=== PATIENT | female | born 1980 | race Caucasian/White ===

== ENCOUNTER 2020-08-13 07:38 | Outpatient (REF) | payer OTHER, SELFPAY | END 2020-08-13 07:39 | disposition home or self-care (01) | LOC: HO.LAB 07:38 | PROVIDERS: Visit Provider Internal Medicine | DX: Z20.828 Contact with and (suspected) exposure to other viral communicable diseases (principal) | CPT/HCPCS: C9803; U0003 ==

== ENCOUNTER 2020-12-25 09:10 | Outpatient (REF) | payer OTHER, SELFPAY ==
[2020-12-25 11:53] LABS: TSH reflex Free T4 1.21 uIU/mL (0.32-4.0); Vitamin D 25-OH Total 46.5 ng/mL (>30)
== END 2020-12-25 09:11 | disposition home or self-care (01) ==
LOC: HO.HMGCLDS 09:10
PROVIDERS: PCP Internal Medicine; Visit Provider Internal Medicine
DX: M85.80 Other specified disorders of bone density and structure, unspecified site (principal)
CPT/HCPCS: 36415; 82306; 84443

== ENCOUNTER → 2021-01-08 10:09 | Outpatient (BNVA) | payer OTHER, SELFPAY | PROVIDERS: PCP Internal Medicine; Visit Provider Internal Medicine Gastroenterology ==

== ENCOUNTER 2021-06-14 10:43 | Outpatient (REF) | payer OTHER, SELFPAY ==
[2021-06-14 14:36] LABS: Monotest Negative (Negative)
[2021-06-14 15:01] LABS: Folate 17.9 ng/mL (> or = 4.0); Vitamin B12 664 pg/mL (200-900)
[2021-06-20 12:31] LABS: Vitamin D 25-OH, D2 5 ng/mL; Vitamin D 25-OH, D3 34 ng/mL; Vitamin D 25-OH, Total 39 ng/mL (30-100)
== END 2021-06-14 10:44 | disposition home or self-care (01) ==
LOC: HO.HMGCLDS 10:43
PROVIDERS: PCP Internal Medicine; Visit Provider Physician Assistant
DX: J02.9 Acute pharyngitis, unspecified (principal); K90.0 Celiac disease
CPT/HCPCS: 36415; 82306; 82607; 82746; 86308

== ENCOUNTER 2021-08-30 | Outpatient (REF) | payer OTHER, SELFPAY | END 2021-08-30 00:01 | disposition home or self-care (01) | LOC: HO.LNP | PROVIDERS: Visit Provider Physician Assistant Medical | DX: Z20.822 Contact with and (suspected) exposure to COVID-19 (principal); J02.9 Acute pharyngitis, unspecified | CPT/HCPCS: 87071; U0003; U0005 ==

== ENCOUNTER 2021-09-04 15:30 | Outpatient (REF) | payer OTHER, SELFPAY | END 2021-09-04 15:31 | disposition home or self-care (01) | LOC: HO.LNP 15:30 | PROVIDERS: Visit Provider Physician Assistant Medical | DX: Z20.822 Contact with and (suspected) exposure to COVID-19 (principal) | CPT/HCPCS: U0003; U0005 ==

== ENCOUNTER 2021-09-06 11:27 | Outpatient (REF) | payer OTHER, SELFPAY ==
--- NOTE | ~2021-09-06 | MM_ITS ---
EXAMINATION: MM SCREENING DIGITAL BREAST TOMOSYNTHESIS, BILATERAL CLINICAL INFORMATION: Screening. Asymptomatic. No prior breast imaging. Age 41. No known family history breast cancer. The lifetime risk of breast cancer based on the Tyrer-Cuzick Model is 14%. COMPARISON: None (current study represents initial baseline exam). TECHNIQUE: Digital breast tomosynthesis is performed in both the craniocaudal and mediolateral oblique views along with computer-aided detection (CAD). Synthesized 2D images are generated from the tomosynthesis. FINDINGS: There are scattered areas of fibroglandular density (ACR BI-RADS breast composition Category b). There are no significant masses, abnormal calcifications, or other abnormalities. The axilla and skin contours are unremarkable. MM/MM tomosynthesis screening BI IMPRESSION: No mammographic evidence of malignancy. ASSESSMENT: BI-RADS 1: Negative RECOMMENDATION: Routine annual mammography screening. This patient's information was entered into a reminder system with a target due date for their next mammogram.
== END 2021-09-06 11:28 | disposition home or self-care (01) ==
LOC: HO.MAMMO 11:27
PROVIDERS: Visit Provider Internal Medicine
DX: Z12.31 Encounter for screening mammogram for malignant neoplasm of breast (principal)
CPT/HCPCS: 77063; 77067

== ENCOUNTER 2021-10-19 09:41 | Outpatient (REF) | payer OTHER, SELFPAY ==
--- NOTE | ~2021-10-19 | MM_ITS ---
EXAMINATION: BONE DENSITOMETRY CLINICAL INDICATION: Other specified disorders of bone density and structure. Age 41. COMPARISON: Previous BD dated 11/01/2019 and baseline BD dated 02/04/2014. TECHNIQUE: Using a [employer] DXA System (software version: 13.1) manufactured by [employer], dual-energy x-ray absorptiometry was performed of the lumbar spine and left hip. The images are of good technical quality. Based on ISCD (International Society for Clinical Densitometry) standards of reporting, Z-scores instead of T-scores are reported in this premenopausal woman. Summary results are attached. FINDINGS: AP SPINE L1-L4: Current: BMD 1.053 g/cm2, T-score -1.1, Z-score -1.7, Z-score within expected range for age, 4.7% increase from previous, 2.0% decrease from baseline (<5% change is not significant). Prior: BMD 1.006 g/cm2. Baseline: BMD 1.074 g/cm2. LEFT FEMUR, NECK: Current: BMD 0.872 g/cm2, T-score -1.2, Z-score -1.2, Z-score within expected range for age. Prior: BMD 0.892 g/cm2. Baseline: BMD 0.839 g/cm2. LEFT FEMUR, TOTAL: Current: BMD 0.936 g/cm2, T-score -0.6, Z-score -0.8, Z-score within expected range for age, 1.3% decrease from previous, 4.9% increase from baseline (<5% change is not significant). Prior: BMD 0.948 g/cm2. Baseline: BMD 0.892 g/cm2. IDENTIFIED RISK FACTORS: Secondary osteoporosis. HISTORY OF FRACTURE: None listed. MEDICATIONS: Calcium supplements or multivitamin, vitamin D. MM/XR DEXA axial skeleton IMPRESSION: 1. DIAGNOSIS: Based on the lowest Z-score value of -1.7 in the lumbar spine, the patient's bone density is within the expected range for age. 2. 10-YEAR FRACTURE RISK PREDICTION, FRAX: Major osteoporotic fracture (clinical spine, forearm, hip or shoulder) 2.1%. Hip fracture 0.1%. 3. Treatment Recommendations: NOF guidelines recommend consideration for treatment in postmenopausal women and men age 50 and older presenting with the following: -A hip or vertebral (clinical or morphometric) fracture. -T-score less than or equal to -2.5 at the femoral neck or spine after appropriate evaluation to exclude secondary causes. -Low bone mass at the hip or spine and a 10-year fracture probability by FRAX of greater than or equal to 3% for hip fracture or greater than or equal to 20% for major osteoporotic fracture based on the [place] adapted WHO algorithm. 4. Other Recommendations: All treatment decisions require clinical judgment and consideration of individual patient factors, including patient preferences, comorbidities, previous drug use, risk factors not captured in the FRAX model (e.g. frailty, falls, vitamin D deficiency, increased bone turnover, interval significant decline in bone density) and possible under or overestimation of fracture risk by FRAX. FUTURE SCAN RECOMMENDATION: People with diagnosed cases of osteoporosis or at high risk for fracture should have regular bone mineral density tests. For patients eligible for Medicare, routine testing is allowed once every 2 years. The testing frequency can be increased to one year for patients who have rapidly progressing disease, those who are receiving or discontinuing medical therapy to restore bone mass, or have additional risk factors.
== END 2021-10-19 09:42 | disposition home or self-care (01) ==
LOC: HO.MAMMO 09:41
PROVIDERS: PCP Internal Medicine; Visit Provider Internal Medicine
DX: Z13.820 Encounter for screening for osteoporosis (principal); M85.80 Other specified disorders of bone density and structure, unspecified site
CPT/HCPCS: 77080

== ENCOUNTER → 2021-11-08 09:26 | Outpatient (BNVA) | payer OTHER, SELFPAY | PROVIDERS: PCP Internal Medicine; Referring Provider Internal Medicine; Visit Provider Internal Medicine Gastroenterology ==

== ENCOUNTER 2021-12-17 10:32 | Outpatient (REF) | payer OTHER, SELFPAY ==
[2021-12-17 10:45] LABS: MANUAL DIFF FLAG NO
[2021-12-17 10:58] LABS: Basophils Percent Auto 0.4 % (0-2); Eosinophils Absolute Auto 0.1 X10*3/uL (0.0-0.4); Eosinophils Percent Auto 0.9 % (0-4); Hemoglobin 13.3 g/dl (12.0-16.0); Imm Gran Abs Auto 0.04 X10*3/uL (0.00-0.03); Imm Gran Pct Auto 0.5 % (0.0-0.4); Lymphocytes Absolute Auto 1.5 X10*3/uL (1.2-4.9); Lymphocytes Percent Auto 18.9 % (20-40); Mean Corpuscular HGB Conc 33.3 g/dl (31.0-35.0); Mean Corpuscular Hemoglobin 31.4 pg (27.0-33.0); Mean Corpuscular Volume 94.6 fL (80.0-98.0); Mean Platelet Volume 9.6 fL (9.4-12.3); Monocytes Absolute Auto 0.6 X10*3/uL (0.1-1.2); Monocytes Percent Auto 7.5 % (2-11); Neutrophils Absolute Auto 5.7 x10*3/uL (2.0-8.3); Neutrophils Percent Auto 71.8 % (45-73); Platelet Count 337 X10*3/uL (160-400); Red Blood Count 4.23 X10*6/uL (4.20-5.50); Red Cell Distribution Width 11.5 % (11.0-16.0)
[2021-12-17 11:16] LABS: INTERNATIONAL NORM RATIO 1.1 (0.9-1.1); Prothrombin Time 12.3 SEC (9.9-13.0)
[2021-12-17 11:45] LABS: Vitamin D 25-OH Total 47.4 ng/mL (>30)
[2021-12-17 12:04] LABS: Folate > 20.0 ng/mL (> or = 4.0); Vitamin B12 741 pg/mL (200-900)
[2021-12-17 12:33] LABS: Ferritin 18 ng/mL (10-250)
[2021-12-20 18:07] LABS: Immunoglobulin A 389 mg/dL (47-310)
[2021-12-22 04:36] LABS: Zinc 76 mcg/dL (60-130)
[2021-12-22 08:42] LABS: Transglutaminase IgA 1.3 U/mL
== END 2021-12-17 10:33 | disposition home or self-care (01) ==
LOC: HO.LAB 10:32
PROVIDERS: PCP Internal Medicine; Visit Provider Internal Medicine Gastroenterology
DX: K90.0 Celiac disease (principal)
CPT/HCPCS: 36415; 82306; 82607; 82728; 82746; 82784; 84630; 85025; 85610; 86364

== ENCOUNTER 2022-04-25 12:30 | Day surgery (SDC) | payer OTHER, SELFPAY ==
[2022-04-19 12:09] VITALS: BMI 28.3
--- NOTE | 2022-04-22 10:38 | HO.ANESPROP2 ---
Documented by User: Karoline Conroy NP 04/22/22 10:38 HPI - Anesthesia Eval Consult details Narrative: 41yo F for Colonoscopy PMFSH Active Problems Active Problems: All Active Problems (Updated 11/08/21 @ 18:12 by Gregoria Salazar MD) Family history of colonic polyps (Acute) Tonsillith (Acute) Acute pharyngitis (Acute) Osteopenia (Acute) Annual physical exam (Acute) Bladder prolapse, female, acquired (Acute) Upper respiratory tract infection (Acute) Celiac disease (Acute) Gas bloat syndrome (Acute) Past Medical History Medical History (Updated 11/08/21 @ 18:12 by Gregoria Salazar MD) Annual physical exam Anxiety and depression Bladder prolapse, female, acquired Celiac disease Eczema Osteopenia Psoriasis Tonsillith Family History Family History Father Family history of prostate problems HTN (hypertension) Mother HTN (hypertension) Maternal Grandmother Parkinsons CVD (cardiovascular disease) Maternal Uncle Colon cancer Other Mental health disorder Substance use disorder Surgical History Surgical History H/O colonoscopy History of esophagogastroduodenoscopy (EGD) Social History Social History Household Members: Spouse and Children Housing: House Alcohol intake: current Alcohol intake frequency: holidays/special occasions only Patient Tobacco Use Status: Never used Tobacco Second Hand Smoke Exposure: No Are you DNR?: No Advance Directives: No Advance Directives Information Provided: Yes Nutrition Risks: No Nutritional Risk Patient : No FDLMP: Current occupational status: employed 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 Meds Allergies Allergy/AdvReac Type Severity Reaction Status Date / Time Gluten Allergy Severe Abdominal Uncoded 09/08/21 11:35 pain, bloating Dust and Mold Allergy Mild Congestion, Uncoded 09/08/21 11:35 sore ears Home Medications Medication Instructions Recorded Confirmed Last Taken Type clobetasol 0.05 % scalp solution ml topical 09/08/21 11/08/21 Unknown History Exam Exam Date and Time: April 22, 2022 1038 Height,Weight and Vital Signs: Height 5 ft 8 in Weight 84.368 kg Assessment and Plan Assessment Anesthesia Assessment: Chart Reviewed Documented by User: Bonita Montes MD 04/25/22 13:17 [facility] Past Medical History Medical History (Updated 11/08/21 @ 18:12 by Gregoria Salazar MD) Annual physical exam Anxiety and depression Bladder prolapse, female, acquired Celiac disease Eczema Osteopenia Psoriasis Tonsillith Family History Family History Father Family history of prostate problems HTN (hypertension) Mother HTN (hypertension) Maternal Grandmother Parkinsons CVD (cardiovascular disease) Maternal Uncle Colon cancer Other Mental health disorder Substance use disorder Family history of problems with anesthesia: No Surgical History Surgical History H/O colonoscopy History of esophagogastroduodenoscopy (EGD) History of Problems with Anesthesia: No Social History Social History Household Members: Spouse and Children Housing: House Alcohol intake: current Alcohol intake frequency: holidays/special occasions only Patient Tobacco Use Status: Never used Tobacco Second Hand Smoke Exposure: No Are you DNR?: No Advance Directives: No Advance Directives Information Provided: Yes Nutrition Risks: No Nutritional Risk Patient : No FDLMP: Current occupational status: employed 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 Meds Allergies Allergy/AdvReac Type Severity Reaction Status Date / Time Gluten Allergy Severe Abdominal Uncoded 09/08/21 11:35 pain, bloating Dust and Mold Allergy Mild Congestion, Uncoded 09/08/21 11:35 sore ears Home Medications Medication Instructions Recorded Confirmed Last Taken Type clobetasol 0.05 % scalp solution ml topical 09/08/21 11/08/21 Unknown History Exam Airway Mallampati Class: II TM Dist: >3cm Neck ROM: Full Heart: rrr Lungs: cta Assessment and Plan Assessment Anesthesia Assessment: Anesthesia Plan Discussed and Chart Reviewed Final Anesthetic Review Family History of Problems with Anesthesia: No History of Problems with Anesthesia: No NPO: Yes ASA Class: II Final Preanesthetic Review: No Changes in Pt Med Stat, Meds/Allgs Chart Reviewed and Consent Obtained/Reviewed Patient Risk: Intermediate Procedure Risk: Intermediate Anesthetic Plan Anesthetic Plan: MAC: Disposition: Standard PACU
[2022-04-25 13:03] VITALS: BP 138/102; PULSE 102; RESP 18; TEMP 36.1; O2SAT 100
[2022-04-25] MEDS: Lactated Ringers 1,000 ML 100 ML IVCONT (13:13)
[2022-04-25 13:14] LABS: UPreg QC Valid YES; Urine Pregnancy NEGATIVE (NEGATIVE)
--- NOTE | 2022-04-25 13:20 | MHC.SHP ---
Pre-Procedural Eval Section A Date of Service: 04/25/22 Section B Chief Complaint: celiac disease,hx of colonic polyps Relevant Family History (Specify if Yes): No Relevant Social History: None Present Medications: see Short Stay Collaborative assessment Medical History: Significant History (Anxiety and depression Bladder prolapse, female, acquired Celiac disease Eczema Osteopenia Psoriasis Tonsillith) History of Previous Operations: Relevant previous surgery/procedure and date(s) (H/O colonoscopy History of esophagogastroduodenoscopy (EGD)) Allergies: Allergies Allergy/AdvReac Type Severity Reaction Status Date / Time Gluten Allergy Severe Abdominal Uncoded 09/08/21 11:35 pain, bloating Dust and Mold Allergy Mild Congestion, Uncoded 09/08/21 11:35 sore ears Review of Systems Sugical H&P ROS: Negative: Constitution, Cardiovascular, Respiratory and Gastrointestinal Exam Surgical H&P Exam: Normal: Heart, Normal: Lungs, Normal: Extremities and Normal: Abdomen Plan Diagnosis/Plan: Unchanged I have reviewed the history and physical and performed a pertinent physical examination on my patient. No changes have occurred unless specified.
--- NOTE | 2022-04-25 13:26 | PM.OP ---
Brief Operative Note Date of Service: 04/25/22 Pre-op diagnosis: Colon cancer screen, family history of colon polyps (Dad in his 40's), follow-up of celiac disease Post-op diagnosis: other (Gastritis, celiac disease, diverticulosis, hemorrhoids) Procedure: FLEXIBLE TRANSORAL UPPER GASTROINTESTINAL ENDOSCOPY WITH BIOPSIES AND COLONOSCOPY TILL CECUM WITH BIOPSIES UPPER ENDOSCOPY Consent: Indications for the procedure and potential complications of bleeding, perforation, reaction to medications and missed diagnosis were discussed with the patient and informed consent was obtained. Instrument: Olympus GIF H 190 mid size upper endoscope Monitoring: Vital signs and clinical assessment, continuous EKG monitoring, Pulse oximetry, Carbon Dioxide monitoring and blood pressure monitoring were done throughout the procedure. Procedure: The patient was placed in the left lateral decubitis position and pre-procedure medications were administered and a bite block was placed. The endoscope was inserted into the mouth and advanced under direct vision to the third part of duodenum. A careful inspection was made as the upper endoscope was withdrawn including a retroflexed examination of the proximal stomach; Findings and interventions are described below. Findings: Larynx: Normal Esophagus: GE junction at 36 cms. No esophagitis or Castro's. Stomach: Mild gastric erythema with a few 1 cms chronic appearing antral erosions. Biopsies were obtained. Grade 2 flap valve on retroflexed examination of the cardia. Duodenum: Normal bulb and descending duodenum. Biopsies were obtained from 3rd part of duodenum to FU on celiac disease Intervention: Biopsies as noted above COLONOSCOPY PROCEDURE NOTE Consent: Indications for the procedure and potential complications of bleeding, perforation, reaction to medications and missed diagnosis were discussed with the patient and informed consent was obtained. Instrument: Olympus PCF H 190 L variable stiffness pediatric colonoscope Monitoring: Vital signs and clinical assessment, intermittent blood pressure monitoring, continuous EKG monitoring, Pulse oximetry and Carbon Dioxide monitoring were done throughout the procedure. Colon withdrawl time was 16 minutes. Procedure: The patient was placed in the left lateral decubitis position and pre-procedure medications were administered. After a digital rectal examination of the ano-rectum, the video colonoscope was inserted into the rectum and advanced through the colon to the cecum. The colonoscope was slowly withdrawn in a retrograde panoramic fashion and the colon mucosa was carefully examined including a retroflexed view of the rectum. Findings and interventions are described below. Procedure Difficulty: Colon was long and tortuous and there was some loop formation. No maneuvers were required. Findings: Terminal Ileum: Not evaluated Cecum: Normal Ascending Colon: Normal Transverse Colon: Normal Descending Colon: Normal Sigmoid Colon: Moderate diverticulosis Rectum: Normal Ano-rectum: Small internal hemorrhoids Colon preparation: Excellent Impression and Post Procedure Diagnosis: Endoscopy Findings: STOMACH: Mild gastric erythema with a few 1 cms chronic appearing antral erosions. DUODENUM: Normal - biopsies were obtained from 3rd part of the duodenum to follow up on celiac sprue Colonoscopy Findings: No polyps were detected. Random biopsies were obtained from the right colon to check for microscopic colitis Moderate diverticulosis seen in the sigmoid colon Small hemorrhoids on retroflexed exam. Plan: Await pathology results Patient has an appointment on 05/12/22 in the GI Clinic with Gregoria Salazar M.D. Repeat Colonoscopy interval based on path results - in 5 years if biopsies are normal due to FH of colon polyps. Above findings were reviewed with the patient and diverticulosis handouts were given in the discharge area Surgeon: Gregoria Salazar MD Anesthesia: MAC (Dr Duvall) Was an Sound Ranging Crewmember used for this Procedure?: Yes Sound Ranging Crewmember: Kerline Gatica Estimated blood loss (mL): 0 Pathology: other ( A. small bowel bxs, F/U celiac disease B. gastric antrum bxs, R/O H. pylori C. random right colon bxs, R/O microscopic colitis) Condition: stable Disposition: PACU
[2022-04-25 14:13] VITALS: BP 102/62; PULSE 62; RESP 16; TEMP 36.4; O2SAT 99
--- NOTE | 2022-04-25 14:14 | W.PM.OPN ---
Operative Note Operative Note Date of Service: 04/25/22 Narrative: Pre-op diagnosis: Colon cancer screen, family history of colon polyps (Dad in his 40's), follow-up of celiac disease Post-op diagnosis:?other (Gastritis, celiac disease, diverticulosis, hemorrhoids) Procedure: FLEXIBLE TRANSORAL UPPER GASTROINTESTINAL ENDOSCOPY WITH BIOPSIES AND COLONOSCOPY TILL CECUM WITH BIOPSIES UPPER ENDOSCOPY Consent:?Indications for the procedure and potential complications of bleeding, perforation, reaction to medications and missed diagnosis were discussed with the patient and informed consent was obtained. Instrument:?Olympus GIF H 190 mid size upper endoscope Monitoring: Vital signs and clinical assessment, continuous EKG monitoring, Pulse oximetry, Carbon Dioxide monitoring and blood pressure monitoring were done throughout the procedure. Procedure:?The patient was placed in the left lateral decubitis position and pre-procedure medications were administered and a bite block was placed. The endoscope was inserted into the mouth and advanced under direct vision to the third part of duodenum. A careful inspection was made as the upper endoscope was withdrawn including a retroflexed examination of the proximal stomach; Findings and interventions are described below. Findings: Larynx:? Normal Esophagus:?GE junction at 36 cms. No esophagitis or Castro's. Stomach:?Mild gastric erythema with a few 1 cms chronic appearing antral erosions. Biopsies were obtained. Grade 2 flap valve on retroflexed examination of the cardia. Duodenum:?Normal bulb and descending duodenum. Biopsies were obtained from 3rd part of duodenum to FU on celiac disease Intervention:?Biopsies as noted above COLONOSCOPY PROCEDURE NOTE Consent:?Indications for the procedure and potential complications of bleeding, perforation, reaction to medications and missed diagnosis were discussed with the patient and informed consent was obtained. Instrument:?Olympus PCF H 190 L variable stiffness pediatric colonoscope Monitoring:?Vital signs and clinical assessment, intermittent blood pressure monitoring, continuous EKG monitoring, Pulse oximetry and Carbon Dioxide monitoring were done throughout the procedure. Colon withdrawl time was 16 minutes. Procedure:?The patient was placed in the left lateral decubitis position and pre-procedure medications were administered. After a digital rectal examination of the ano-rectum, the video colonoscope was inserted into the rectum and advanced through the colon to the cecum. The colonoscope was slowly withdrawn in a retrograde panoramic fashion and the colon mucosa was carefully examined including a retroflexed view of the rectum. Findings and interventions are described below. Procedure Difficulty:??Colon was long and tortuous and there was some loop formation.? No maneuvers were required. Findings: Terminal Ileum: Not evaluated Cecum:? Normal Ascending Colon:??Normal Transverse Colon:??Normal Descending Colon:? Normal Sigmoid Colon:??Moderate diverticulosis Rectum:??Normal Ano-rectum:??Small internal hemorrhoids Colon preparation: Excellent ? Impression and Post Procedure Diagnosis: Endoscopy Findings: STOMACH: Mild gastric erythema with a few 1 cms chronic appearing antral erosions. DUODENUM: Normal - biopsies were obtained from 3rd part of the duodenum to follow up on celiac sprue Colonoscopy Findings: No polyps were detected. Random biopsies were obtained from the right colon to check for microscopic colitis Moderate diverticulosis seen in the sigmoid colon Small hemorrhoids on retroflexed exam. Plan: Await pathology results Patient has an appointment on 05/12/22 in the GI Clinic with Gregoria Salazar M.D. Repeat Colonoscopy interval based on path results - in 5 years if biopsies are normal due to FH of colon polyps. Above findings were reviewed with the patient and diverticulosis handouts were given in the discharge area Surgeon: Gregoria Salazar MD Anesthesia:?MAC (Dr Duvall) Was an Gynecology Teacher used for this Procedure?:?Yes Gynecology Teacher:?Kerline Gatica Estimated blood loss (mL):?0 Pathology:?other ( A. small bowel bxs, F/U celiac disease? B. gastric antrum bxs, R/O H. pylori? C. random right colon bxs, R/O microscopic colitis) Condition:?stable Disposition:?PACU
[2022-04-25 14:28] VITALS: BP 102/84; PULSE 72; RESP 16; O2SAT 100
[2022-04-25 14:39] VITALS: BP 114/78; PULSE 62; RESP 16; TEMP 36.4; O2SAT 100
== END 2022-04-25 15:09 | disposition home or self-care (01) ==
PROVIDERS: Nurse Practitioner; PCP Internal Medicine; Visit Provider Internal Medicine Gastroenterology
PROC: (CPT 45380; principal; 2022-04-25 13:30)
DX: Z12.11 Encounter for screening for malignant neoplasm of colon (principal); Z83.71 Family history of colonic polyps; K57.30 Diverticulosis of large intestine without perforation or abscess without bleeding; K64.8 Other hemorrhoids; K90.0 Celiac disease; K29.50 Unspecified chronic gastritis without bleeding; M85.80 Other specified disorders of bone density and structure, unspecified site; L40.9 Psoriasis, unspecified; L30.9 Dermatitis, unspecified; Z79.899 Other long term (current) drug therapy
CPT/HCPCS: 45380; 43239; 81025; 88305; 88342; J2250

== ENCOUNTER 2022-05-06 11:00 | Outpatient (RCR) | payer OTHER, SELFPAY | END 2022-08-29 13:15 | disposition home or self-care (01) | LOC: HO.PT 11:00 | PROVIDERS: PCP Internal Medicine; Visit Provider Internal Medicine | DX: N81.10 Cystocele, unspecified (principal) | CPT/HCPCS: 97112; 97140; 97161; 97530 ==

== ENCOUNTER 2022-06-08 08:12 | Outpatient (REF) | payer OTHER, SELFPAY ==
[2022-06-08 11:21] LABS: MANUAL DIFF FLAG NO
[2022-06-08 11:28] LABS: Basophils Percent Auto 0.5 % (0-2); Eosinophils Absolute Auto 0.1 X10*3/uL (0.0-0.4); Eosinophils Percent Auto 0.9 % (0-4); Hematocrit 38.7 % (37.0-47.0); Hemoglobin 12.9 g/dl (12.0-16.0); Imm Gran Abs Auto 0.02 X10*3/uL (0.00-0.03); Imm Gran Pct Auto 0.3 % (0.0-0.4); Lymphocytes Absolute Auto 1.6 X10*3/uL (1.2-4.9); Lymphocytes Percent Auto 20.6 % (20-40); Mean Corpuscular HGB Conc 33.3 g/dl (31.0-35.0); Mean Corpuscular Hemoglobin 30.6 pg (27.0-33.0); Mean Corpuscular Volume 91.9 fL (80.0-98.0); Mean Platelet Volume 10.5 fL (9.4-12.3); Monocytes Absolute Auto 0.6 X10*3/uL (0.1-1.2); Monocytes Percent Auto 8.3 % (2-11); Neutrophils Absolute Auto 5.4 x10*3/uL (2.0-8.3); Neutrophils Percent Auto 69.4 % (45-73); Platelet Count 311 X10*3/uL (160-400); Red Blood Count 4.21 X10*6/uL (4.20-5.50); Red Cell Distribution Width 11.4 % (11.0-16.0); White Blood Count 7.7 X10*3/uL (4.8-10.8)
[2022-06-08 11:37] LABS: Estimated Average Glucose 91 mg/dL; Hemoglobin A1c % 4.8 %
[2022-06-08 11:50] LABS: Alanine Aminotransferase 19 U/L (0-31); Albumin Level 3.9 g/dL (3.5-5.0); Alkaline Phosphatase 73 U/L (39-117); Anion Gap 13 (12-20); Aspartate Amino Transferase 17 U/L (5-31); Bilirubin Total 0.7 mg/dL (0.0-1.0); Blood Urea Nitrogen 11 mg/dL (9-16); Calcium 8.8 mg/dL (8.4-10.2); Carbon Dioxide 27 mmol/L (22-29); Chloride 101 mmol/L (96-108); Cholesterol 147 mg/dL; Estimated Glomerular Filt Rate > 60; Glucose Fasting 91 mg/dL (60-99); HDL Cholesterol 48 mg/dL; LDL Cholesterol Calculated 82 mg/dl; Sodium 137 mmol/L (135-145); Total Protein 6.8 g/dL (6.5-8.0); Triglycerides 85 mg/dL
[2022-06-08 12:15] LABS: TSH reflex Free T4 1.67 uIU/mL (0.32-4.0)
== END 2022-06-08 08:13 | disposition home or self-care (01) ==
LOC: HO.HMGCLDS 08:12
PROVIDERS: PCP Internal Medicine; Visit Provider Internal Medicine
DX: R73.9 Hyperglycemia, unspecified (principal)
CPT/HCPCS: 36415; 80053; 80061; 83036; 84443; 85025

== ENCOUNTER 2022-09-15 09:09 | Outpatient (REF) | payer OTHER, SELFPAY ==
--- NOTE | ~2022-09-15 | MM_ITS ---
EXAMINATION: MM SCREENING DIGITAL BREAST TOMOSYNTHESIS, BILATERAL CLINICAL INFORMATION: Screening. Asymptomatic. The lifetime risk of breast cancer based on the Tyrer-Cuzick Model is 13.0%. COMPARISON: Mammography: 09/06/2021 TECHNIQUE: Digital breast tomosynthesis is performed in both the craniocaudal and mediolateral oblique views along with computer-aided detection (CAD). Synthesized 2D images are generated from the tomosynthesis. FINDINGS: There are scattered areas of fibroglandular density (ACR BI-RADS breast composition Category b). Within the right breast on craniocaudal view only, there are 2 circumscribed densities not seen previously with one measuring 4 mm in diameter and the other 5 mm in diameter and lying approximately 7 cm from the nipple. Spot compression views in craniocaudal projection recommended with rolled craniocaudal views if the densities are persistent. A left breast density seen deep on mediolateral oblique projection is seen on tomosynthesis to represent overlying vessels. MM/MM tomosynthesis screening BI IMPRESSION: Right breast findings for further evaluation as described. ASSESSMENT: BI-RADS 0: Incomplete - Need Additional Imaging Evaluation RECOMMENDATION: 1. Additional views of the right breast. 2. Targeted ultrasound if warranted after review of the additional views. 3. Radiology department staff will contact the patient for additional imaging. This patient's information was entered into a reminder system with a target due date for their next mammogram.
== END 2022-09-15 09:10 | disposition home or self-care (01) ==
LOC: HO.MAMMO 09:09
PROVIDERS: Visit Provider Internal Medicine
DX: Z12.31 Encounter for screening mammogram for malignant neoplasm of breast (principal)
CPT/HCPCS: 77063; 77067

== ENCOUNTER 2022-09-22 10:51 | Outpatient (REF) | payer OTHER, SELFPAY ==
--- NOTE | ~2022-09-22 | MM_ITS ---
EXAMINATION: MM DIAGNOSTIC DIGITAL BREAST TOMOSYNTHESIS, RIGHT US DIAGNOSTIC ULTRASOUND BREAST, RIGHT CLINICAL INFORMATION: Recall from screening for 2 small nodular asymmetry central mid right breast on CC view. COMPARISON: Mammography: 09/15/2022, 09/06/2021 (baseline). TECHNIQUE: Digital breast tomosynthesis is performed. 2D images are generated from the tomosynthesis. The following views are obtained: Spot CC, rolled CC x2 Ultrasound right breast is targeted to the central breast interrogated from the lower breast and upper breast. Imaging performed with patient supine and semiupright and with right arm elevated and down. Grayscale imaging and color Doppler are performed without and with harmonics. FINDINGS: There are scattered areas of fibroglandular density (ACR BI-RADS breast composition Category b). Rolled views show 2 small smooth benign-appearing nodules under 4 mm. The movement of on the rolled views suggesting position within the mid breast just superior to the posterior nipple line. Ultrasound demonstrates tiny cyst just under 3 mm central breast. No solid mass or architectural abnormality. No focal duct ectasia. Results are discussed with the patient at time of visit. Two tiny benign-appearing nodules central right breast, one may represent a tiny cyst on targeted ultrasound. Management plan is for short interval follow-up right mammography in 6 months and follow-up ultrasound if warranted. MM/MM tomosynthesis added views R IMPRESSION: -Two tiny benign-appearing nodules central right breast. -Tiny cyst on ultrasound which may correspond to the smaller nodule. ASSESSMENT: BI-RADS 3: Probably Benign RECOMMENDATION: Diagnostic right mammography in 6 months. This patient's information was entered into a reminder system with a target due date for their next mammogram.
== END 2022-09-22 10:52 | disposition home or self-care (01) ==
LOC: HO.MAMMO 10:51
PROVIDERS: PCP Internal Medicine; Visit Provider Internal Medicine
DX: R92.2 Inconclusive mammogram (principal)
CPT/HCPCS: 76642; 77061; 77065

== ENCOUNTER → 2023-01-05 08:59 | Outpatient (BNVA) | payer OTHER, SELFPAY | PROVIDERS: PCP Internal Medicine; Visit Provider Internal Medicine Gastroenterology | DX: Z13.89 Encounter for screening for other disorder (principal) ==

== ENCOUNTER 2023-03-27 10:54 | Outpatient (REF) | payer OTHER, SELFPAY ==
--- NOTE | ~2023-03-27 | MM_ITS ---
EXAMINATION: MM DIAGNOSTIC DIGITAL BREAST TOMOSYNTHESIS, RIGHT CLINICAL INFORMATION: Short interval six-month follow-up small probable benign nodularity lower central right breast. The lifetime risk of breast cancer based on the Tyrer-Cuzick Model is 13%. COMPARISON: Mammography: 09/22/2022, 09/15/2022 (BI-RADS 0), 09/06/2021; right breast ultrasound 09/22/2022. TECHNIQUE: Digital breast tomosynthesis is performed in both the craniocaudal and mediolateral oblique views along with computer-aided detection (CAD). Synthesized 2D images are generated from the tomosynthesis. FINDINGS: There are scattered areas of fibroglandular density (ACR BI-RADS breast composition Category b). There are no significant masses, abnormal calcifications, or other abnormalities. The small nodularity mid central lower right breast are stable. No developing density or architectural abnormality. Right breast will be reassessed again at time of annual bilateral mammography, due in 6 months. Results are provided to the patient at time of visit by the technologist. MM/MM tomosynthesis diagnostic RT IMPRESSION: Small benign-appearing nodularity stable. ASSESSMENT: BI-RADS 3: Probably Benign RECOMMENDATION: Diagnostic mammography at time of annual bilateral exam, due in 6 months. This patient's information was entered into a reminder system with a target due date for their next mammogram.
== END 2023-03-27 10:55 | disposition home or self-care (01) ==
LOC: HO.MAMMO 10:54
PROVIDERS: PCP Internal Medicine; Visit Provider Internal Medicine
DX: R92.2 Inconclusive mammogram (principal)
CPT/HCPCS: 77061; 77065

== ENCOUNTER 2023-08-31 09:08 | Outpatient (REF) | payer OTHER, SELFPAY ==
[2023-08-31 10:31] LABS: Hemoglobin 13.9 g/dl (12.0-16.0); Mean Corpuscular HGB Conc 33.9 g/dl (31.0-35.0); Mean Corpuscular Hemoglobin 31.6 pg (27.0-33.0); Mean Corpuscular Volume 93.2 fL (80.0-98.0); Mean Platelet Volume 10.1 fL (9.4-12.3); Platelet Count 347 X10*3/uL (160-400); Red Cell Distribution Width 11.9 % (11.0-16.0)
[2023-08-31 10:37] LABS: Prothrombin Time 11.6 SEC (11.1-13.3)
[2023-08-31 11:08] LABS: Alanine Aminotransferase 20 U/L (0-31); Albumin Level 4.3 g/dL (3.5-5.0); Alkaline Phosphatase 74 U/L (39-117); Anion Gap 13 (12-20); Aspartate Amino Transferase 20 U/L (5-31); Bilirubin Total 0.9 mg/dL (0.0-1.0); Blood Urea Nitrogen 11 mg/dL (9-16); Calcium 9.1 mg/dL (8.4-10.2); Carbon Dioxide 26 mmol/L (22-29); Chloride 98 mmol/L (96-108); Estimated Glomerular Filt Rate > 60; Glucose Random 78 mg/dL (60-115); Potassium 3.9 mmol/L (3.3-5.1); Sodium 133 mmol/L (135-145); Total Protein 7.8 g/dL (6.5-8.0)
[2023-08-31 11:16] LABS: Vitamin D 25-OH Total 48.4 ng/mL (>30)
[2023-08-31 11:29] LABS: Folate 10.2 ng/mL (> or = 4.0); Vitamin B12 803 pg/mL (200-900)
[2023-09-01 19:59] LABS: Transglutaminase Ab IgG <1.0 U/mL; Transglutaminase IgA 1.5 U/mL
[2023-09-04 00:14] LABS: Zinc 87 mcg/dL (60-130)
[2023-09-05 04:19] LABS: Alpha-Tocopherol 16.4 mg/L (5.7-19.9); Beta-Gamma Tocopherol <1.0 mg/L (<=4.3)
[2023-09-05 04:28] LABS: Vitamin A 44 mcg/dL (38-98)
== END 2023-08-31 09:09 | disposition home or self-care (01) ==
LOC: HO.LAB 09:08
PROVIDERS: PCP Internal Medicine; Visit Provider Internal Medicine Gastroenterology
DX: K90.0 Celiac disease (principal)
CPT/HCPCS: 36415; 80053; 82306; 82607; 82746; 84446; 84590; 84630; 85027; 85610; 86364

== ENCOUNTER 2023-09-05 07:54 | Outpatient (AMB) | payer OTHER, SELFPAY ==
--- NOTE | 2023-09-05 08:14 | MHC.OFFVIS ---
Intake Vital Signs 09/05/23 08:15 Height 5 ft 8 in Weight 187 lb BMI 28.4 BP 108/66 Blood Pressure Location Lt brachial Position Sitting Pulse 84 Intake Visit Reasons: 6 month follow up Intake Note: Patient 6 month follow up for Patient denies any GI issues for today. Teletray Operator Required: No Accompanied by: Self / Same As Patient Allergies Gluten Allergy (Severe, Uncoded 09/08/21 11:35) Abdominal pain, bloating Dust and Mold Allergy (Mild, Uncoded 09/08/21 11:35) Congestion, sore ears Medication List - Last Reconciled 09/05/23 by Gregoria Salazar MD bupropion HCl 300 mg PO QAM clobetasol 0.05% mL topical dextroamphetamine-amphetamine 5 mg ER 1 cap PO QAM hyoscyamine sulfate (Levsin/SL) 0.125 mg sublingual BID-QID PRN 30 days miscellaneous medical supply 1 ea miscellaneous .QD HPI 6 month follow up HPI Details GI clinic visit for this 43 YF for follow-up of celiac disease. Patient has been followed by Dr. Fitzpatrick since March 2020. LABS IN [employer] :? Reviewed IMAGING STUDIES:? 10/19/21 bone density study: 1. DIAGNOSIS: Based on the lowest Z-score value of -1.7 in the lumbar spine, the patient's bone density is within the expected range for age. ENDOSCOPIC STUDIES:? 04/25/22 EGD AND COLONOSCOPY SHOWED: Endoscopy Findings: STOMACH: Mild gastric erythema with a few 1 cms chronic appearing antral erosions. DUODENUM: Normal - biopsies were obtained from 3rd part of the duodenum to follow up on celiac sprue Colonoscopy Findings: No polyps were detected. Random biopsies were obtained from the right colon to check for microscopic colitis Moderate diverticulosis seen in the sigmoid colon Small hemorrhoids on retroflexed exam. Plan:? Repeat Colonoscopy interval based on path results - in 5 years if biopsies are normal due to FH of colon polyps. BIOPSIES SHOWED: A.? Small bowel, biopsy:? Duodenal mucosa with mildly increased intraepithelial lymphocytes and preserved villous architecture.? See comment. B.? Stomach, antrum, biopsy:? Antral-type mucosa with mild chronic inactive inflammation; no Helicobacter organisms seen. C.? Colon, random right, biopsy:? Colonic mucosa within normal limits; negative for microscopic colitis. TODAY'S VISIT: Lab results reviewed with the patient. Continues to feel a little tired (chronic issue)- Wonders if it is related to ADHD Tried low dose Aderrall and felt better Takes Magnesium every night for contstipation and has a BM daily. Taking low dose Nalteroxone ? for autoimmune disease Noted jt pains in the hands over the summer and felt better with above Had foot and mouth disease after 8 yr old son and 5 yr old daughter caught it from school - now recovered Dad has colon polyps and has a colonoscopy every 5 yrs Maternal uncle had colon cancer in his 50's PAST VISITS: She was feeling a little tired and has been taking a MVI daily. Takes liquid B12 and vitamin D less frequently Takes Citracal every morning. If gets gluten accidently she has abd cramping relieved by Levsin S/L If she is exposed to a lot of gluten, she can have vomiting and no cramping. Intermittent constipation and takes a magnesium pill in the evening which is helpful. (Has TMJ and grinds her teeth at night and Magnesium helps with this) EGD and Colon results reviewed with the patient. Noted abdominal pain after the procedures lasting for a day Had COVID infection 03/10/22 with GI symptoms. Diagnosed with Celiac disease in 2009 by lab tests. Follows a strict GFD.? Notes symptoms even with minimal exposure. (she thinks she was accidently exposed to gluten a few days ago - noted abdominal cramps and bloating) Had an EGD and Colonoscopy in 2011 for diarrhea and rectal bleeding - normal per patient. Pt has been unable to get records (? have been shredded) Patient denies symptoms of heartburn, dysphagia, nausea, vomiting, change in appetite. Intentional wt loss. Takes Citracal and takes Magnesium daily for constipation and has a BM daily. Denies recent change in bowel habits, diarrhea, black stools or rectal bleeding. Patient denies major cardiac or pulmonary problems, loud snoring or sleep apnea Denies problems with anesthesia in the past. Denies being on chronic anticoagulation - takes Ibuprofen prn for MUÑOZ and menstrual cramps. Takes 3 glasses of wine a week and denies smoking. 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 Two children - son 6 yrs, daughter 3 yrs. Patient denies known family history of celiac disease, colon polyps, colon cancer or other GI malignancies. No one wants to get tested.? Daughter has one of the Genes for celiac and no symptoms. Dad has colon polyps at age 40 yrs. PAST EGD/COLONOSCOPY:? Had an EGD and Colonoscopy in 2012 for diarrhea and rectal bleeding - normal per patient. Pt has been unable to get records (? have been shredded) PAST GI HISTORY BY REVIEW OF MEDICAL RECORDS: 03/04/[address] FITZPATRICK: The patient is a 39 y/o female who presents for an initial telephone visit? for a celiac disease. 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 ?She has 1 brother? with type 1 DM. Her parents do not have celiac disease diagnoses. Her father has? esphogus issues, possible Castro's esophagus. She thinks that her mother has a? mood disorder, but she is unsure. She denies ever smoking. She drinks EtOH about? 3 times per week. She occasionally uses marijuana. She takes a multivitamin. She? states that she does not always remembers to take her calcium supplements. She? states that she has periodic vitamin D deficiencies. She reports following a? strict gluten free diet and rarely goes out to eat. She limits her dairy? intake. ?She reports known diagnosis of celiac disease in 2009. She was? referred to GI at [facility], she does not remember the provider, who preformed? genetic testing. She did not have an EGD as her blood work was sufficient for a? celiac diagnosis. She had a normal EDG and colonoscopy around 2013 for blood in? her stool, but both were normal. She then had a bone density 5 years ago and was? found to have osteopenia. Her last bone density was worse, but she does not? think she was diagnosed with osteoporosis. She states that she saw? endocrinology, an unknown provider, in 12/2019 at [facility] but she does not have? a follow up. She had blood work done with the road equipment operator. She stopped? liothyronine on advice of the road equipment operator. Her PCP plans to repeat thyroid? blood work soon. She reports ongoing fatigue.? Fatigue was worse before her? celiac diagnosis. She had 2 deliveries, in 2014 and 2016. She? breastfed both of her children for 9 months. She also supplemented with formula.? She had an unplanned and miscarriage in 11/2019, after about 6 weeks,? and she was on control for a few month. She states periods were heavy and? long after the miscarriage. She does not plan any additional pregnancies.?She reports waking frequently to urinate at night at least twice per? night, even with trying to limit her liquid intake at night. She denies issues? falling asleep. She denies changes in her sleep pattern after having children.? She thinks that she is getting adequate sleep. She used to exercise before the? COVID-19 pandemic. Reports difficulty losing weight since her delivery. She? denies abdominal pain, diarrhea, nausea, Hx of asthma, SOB, and palpitations.? She defecates about once every 1-2 days. She took an SSRI for 3 months after her? last delivery in 2018, but stopped due to multiple side effects including? diarrhea. 1. Celiac disease - K90.0 (Primary)2. Osteopenia determined by x-ray -? M85.80Celiac panel was unremarkable in 2016. In 11/01/2019, hemoglobin was 13.2,? hematocrit was 33.2, and the rest of CBC was normal. Glucose and renal function? were normal, AST 33, ALT 64, bilirubin 0.4, and albumin 4.0. Patient seems? to have an appropriate diagnosis of celiac disorder. Within the last 5 years she? has had 2 completed pregnancies and 1 miscarriage. She did short term, up to 9? months, with the 2 children. She has not consistently taken her? supplementations, She also reports fatigue, which with no clear etiology, no Hx? of sleep apnea, BMI has been in the range of 30-32, I believe some of her? problems may be metabolic. She seems to follow a gluten free diet. Biopsies in? 2015 showed normal villi structure, which usually translates to normal? absorption depending on dietary intake. Small bowel biopsies were done at the? time of her EGD, in 2013. We will get her previous records from [facility] and? [facility]. We will regroup in 6-8 weeks [facility] Medical History Annual physical exam Anxiety and depression Bladder prolapse, female, acquired Celiac disease Eczema Osteopenia Psoriasis Tonsillith Surgical History H/O colonoscopy History of esophagogastroduodenoscopy (EGD) Family History Father Family history of prostate problems HTN (hypertension) Mother HTN (hypertension) Maternal Grandmother Parkinsons CVD (cardiovascular disease) Maternal Uncle Colon cancer Other Mental health disorder Substance use disorder Social History Household Members: Spouse and Children Housing: House Alcohol intake: current Alcohol intake frequency: holidays/special occasions only Patient Tobacco Use Status: Never used Tobacco e-Cigarette/Vaping Use: Never Used Second Hand Smoke Exposure: No Current occupational status: employed 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 Cognitive needs: No Hearing needs: No Vision needs: Yes Review of Systems Const All systems reviewed & are unremarkable except as noted in HPI and below Physical Exam Vital Signs: Last Vital Signs Pulse 84 09/05/23 08:15 BP 108/66 09/05/23 08:15 BMI result Body Mass Index 28.4 Const General: healthy appearing and no acute distress Nutritional Appearance: overweight Orientation/consciousness: patient oriented x3 Limitations: no limitations HEENT Head: Yes normal to inspection Ears: hearing grossly normal bilaterally Mouth: Normal oral and palatal mucosa present Eyes Sclerae: sclerae normal Pupils: Equal, round and reactive pupils present Neck Neck: Yes normal visual inspection Chest Chest palpation & inspection: normal inspection of the chest Resp Effort & Inspection: normal respiratory effort Auscultation: clear to auscultation bilaterally Cardio Palpation: normal PMI Rate: regular rate Rhythm: regular rhythm Heart sounds: S1 normal heart sound present, S2 normal heart sound present and no murmurs GI Palpation (GI): Soft to palpation, nontender and No hepatosplenomegaly present Auscultation: normal bowel sounds Rectal Exam - Female: deferred Skin General skin exam: no rashes or lesions noted Neuro General: patient oriented x3, gait normal and moves all extremities Cranial nerves: Yes Equal, round and reactive pupils present Psych Appearance: grossly normal Mental Status: mental status grossly normal Assessment & Plan Assessment & Plan (1) Gas bloat syndrome: Code(s): K92.89 - Other specified diseases of the digestive system (2) Celiac disease: Code(s): K90.0 - Celiac disease (3) Family history of colonic polyps: Comment: Dad in his 40's Code(s): Z83.71 - Family history of colonic polyps Plan 43 YF with psoriasis diagnosed with Celiac Disease in 2009 and following a strict gluten free diet. She notes symptoms on accidental exposure to minimal amounts of gluten. She takes multiple supplements - calcium, vitamin-D, vitamin B12. Labs showed normal celiac serologies, LFTs, vitamin D and vitamin B12 levels. Patient's dad was detected to have colon polyps in his 40s.? Per patient EGD and colonoscopy in 2011 were negative. 04/2022 EGD and colonoscopy were performed and findings as noted above.? Pt was advised repeat Colon in 5 yrs due to positive FH FU in 12 months (pt advised to have labs checked in 06/2023) Orders: Orders C Reactive Protein 11 Months K90.0 - Celiac disease Complete Blood Count no Diff 11 Months K90.0 - Celiac disease Comprehensive Met. Panel 11 Months K90.0 - Celiac disease Transglutaminase IgA 11 Months K90.0 - Celiac disease Transglutaminase Ab IgG 11 Months K90.0 - Celiac disease Coding Level of Care Code Est Pt Level 3 (09489) Diagnoses Gas bloat syndrome K92.89 Celiac disease K90.0 Family history of colonic polyps Z83.71 Time Spent (min) 18
[2023-09-05 08:15] VITALS: BP 108/66; PULSE 84; BMI 28.4
== END 2023-09-05 09:06 | disposition home or self-care (01) ==
PROVIDERS: Visit Provider Internal Medicine Gastroenterology
DX: K92.89 Other specified diseases of the digestive system (principal); K90.0 Celiac disease; Z83.71 Family history of colonic polyps
CPT/HCPCS: 99213

== ENCOUNTER → 2023-09-05 07:54 | Outpatient (BNVA) | payer OTHER, SELFPAY | PROVIDERS: Visit Provider Internal Medicine Gastroenterology ==

== ENCOUNTER 2023-09-08 13:53 | Outpatient (REF) | payer OTHER, SELFPAY ==
--- NOTE | ~2023-09-08 | MM_ITS ---
EXAMINATION: MM DIAGNOSTIC DIGITAL BREAST TOMOSYNTHESIS, BILATERAL CLINICAL INFORMATION: 6 month follow-up small probably benign nodules seen on cc view only a central and lower right breast. COMPARISON: Mammography: 03/27/2023, 09/22/2022, 09/15/2022 (BI-RADS 0), 09/06/2021; right breast ultrasound 09/22/2022. TECHNIQUE: Digital breast tomosynthesis is performed in both the craniocaudal and mediolateral oblique views along with computer-aided detection (CAD). Synthesized 2D images are generated from the tomosynthesis. FINDINGS: There are scattered areas of fibroglandular density (ACR BI-RADS breast composition Category b). Technique 2 small nodules approximately 7 cm from the nipple on the central and slightly inner CC projection are stable without change. There are no developing masses, suspicious grouped calcifications, or developing regions of architectural distortion in either breast. Parenchymal pattern is stable from prior exams bilaterally. MM/MM tomosynthesis diagnostic BI IMPRESSION: No findings suspicious for malignancy in either breast. 2 tiny nodular densities in the right breast mid depth seen on the CC projection only are unchanged and stable and probably benign. One-year follow-up mammography recommended. No suspicious findings in the left breast. ASSESSMENT: BI-RADS BI-RADS 3 - Probably benign finding(s) - 12 month follow-up suggested RECOMMENDATION: 12 month diagnostic follow up Results were provided to the patient at time of visit by the technologist. This patient's information was entered into a reminder system with a target due date for their next mammogram.
== END 2023-09-08 13:54 | disposition home or self-care (01) ==
LOC: HO.MAMMO 13:53
PROVIDERS: PCP Internal Medicine; Visit Provider Internal Medicine
DX: N63.15 Unspecified lump in the right breast, overlapping quadrants (principal)
CPT/HCPCS: 77062; 77066

== ENCOUNTER → 2023-09-08 14:00 | Outpatient (BNV) | payer OTHER, SELFPAY | PROVIDERS: PCP Internal Medicine; Visit Provider Radiology Diagnostic Radiology | DX: N63.15 Unspecified lump in the right breast, overlapping quadrants (principal) | CPT/HCPCS: 77062; 77066 ==

== ENCOUNTER 2024-03-22 15:55 | Outpatient (AMB) | payer OTHER, SELFPAY ==
--- NOTE | 2024-03-22 15:58 | AM.OFFWIN_ITS ---
Intake Vital Signs 03/22/24 15:59 Height 5 ft 8 in BP 118/72 Blood Pressure Location Rt brachial Position Sitting Pulse 73 Pulse Source Pulse Oximeter Temp 98.3 F Temp Source Oral Pulse Oximetry (%) 98 Intake Visit Reasons: EP swollen vein inside lft wrist Intake Note: pt is here for swollen kunal on left wrist Patient Tobacco Use Status: Never used Tobacco Allergies Gluten Allergy (Severe, Uncoded 04/02/24 08:39) Abdominal pain, bloating Dust and Mold Allergy (Mild, Uncoded 04/02/24 08:39) Congestion, sore ears Do you need a note to return to daycare/school/sports/work: No HPI HPI Comments History of Present Illness Details This is a 43-year-old female presenting for evaluation of a discolored and enlarged vein on the volar surface of her left wrist. Patient states approximately 4 weeks ago she broke a ceramic plate and had superficial cuts overlying her left wrist. Patient cleansed the area, applied antibiotic ointment and no further intervention was needed. The patient states over the past 2 weeks she is developed redness at the site with increased discomfort. Patient states that the redness has not worsened. Additionally, been on several courses of antibiotics for management of a recurrent urinary tract infection. Patient denies having any fevers, chills or pain in her left hand. [facility] Medical History (Updated 04/02/24 @ 13:37 by Sharon Feliz MD) Tonsillith Annual physical exam Bladder prolapse, female, acquired Celiac disease Osteopenia Anxiety and depression Eczema Psoriasis Surgical History H/O colonoscopy History of esophagogastroduodenoscopy (EGD) Family History Father Family history of prostate problems HTN (hypertension) Mother HTN (hypertension) Maternal Grandmother Parkinsons CVD (cardiovascular disease) Maternal Uncle Colon cancer Other Mental health disorder Substance use disorder Social History (Updated 04/02/24 @ 13:34 by Sharon Feliz MD) Household Members: Spouse and Children 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 Housing: House Alcohol intake: current Alcohol intake frequency: holidays/special occasions only Patient Tobacco Use Status: Never used Tobacco e-Cigarette/Vaping Use: Never Used Second Hand Smoke Exposure: No service: No Current occupational status: employed 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 Cognitive needs: No Hearing needs: No Vision needs: Yes Review of Systems Const All systems reviewed & are unremarkable except as noted in HPI and below Denies chills and Denies fever(s) Musc Details: left wrist pain with activity Skin/Breast Details: mild redness left wrist Jayden/Lymph Reports no additional complaints and Denies lymphadenopathy Aller/Immun Reports no additional complaints Physical Exam Vital Signs: Last Vital Signs Temp 98.3 F 03/22/24 15:59 Pulse 73 03/22/24 15:59 BP 118/72 03/22/24 15:59 Pulse Ox 98 03/22/24 15:59 Const General: cooperative, healthy appearing, comfortable, no acute distress, well developed, alert, awake and Physically active Nutritional Appearance: average body habitus Orientation/consciousness: patient oriented x3 Limitations: no limitations Skin Other: mild erythema overlying vein on volar surface of left wrist; no warmth or tenderness to direct examination Neuro General: patient oriented x3 Extrem Left upper extremity: normal to inspection, full ROM, normal capillary refill and wrist (mild erythema volar surface left wrist; ROM intact without limitation); no cyanosis and no edema Psych Appearance: grossly normal Mental Status: mental status grossly normal Insight: Good insight present (Psych) Judgement: Good judgement present (Psych) Results Reviewed Results Reviewed: No acute findings noted on imaging. Assessment & Plan Assessment & Plan (1) Left wrist pain: Comment: There is mild erythema overlying the volar surface of the left wrist with no identified foreign body on imaging. Patient has been on 4 courses of oral antibiotics over the past 1 month and her last dose was approximately 10 days ago. Oral antibiotics will be deferred at this time and the patient will continue to monitor the erythema that has not worsened over the past 2 weeks. Code(s): M25.532 - Pain in left wrist Plan: Topical triple antibiotic ointment twice daily; follow-up with urgent care if the erythema worsens, becomes painful or starts to streak up the left upper extremity. Coding Level of Care Code Est Pt Level 3 (21417) Diagnoses Left wrist pain M25.532 Time Spent (min) 25
[2024-03-22 15:59] VITALS: BP 118/72; PULSE 73; TEMP 36.8; O2SAT 98
== END 2024-03-22 16:30 | disposition home or self-care (01) ==
PROVIDERS: PCP Internal Medicine; Visit Provider Physician Assistant
DX: M25.532 Pain in left wrist (principal)
CPT/HCPCS: 99213

== ENCOUNTER 2024-03-22 16:11 | Outpatient (REF) | payer OTHER, SELFPAY ==
--- NOTE | ~2024-03-22 | XR_ITS ---
EXAMINATION: XR WRIST, LEFT CLINICAL INFORMATION: Residual foreign body in soft tissues COMPARISON: None available. TECHNIQUE: PA, lateral, and oblique views of the left wrist. FINDINGS: Bone alignment is normal. No fracture or dislocation. Normal joint spaces. Normal soft tissues. No radiopaque soft tissue foreign body or abnormal air collection seen. XR/XR wrist LT min 3V IMPRESSION: Unremarkable exam.
== END 2024-03-22 16:12 | disposition home or self-care (01) ==
LOC: HO.HMGCX 16:11
PROVIDERS: PCP Internal Medicine; Visit Provider Physician Assistant
DX: M79.5 Residual foreign body in soft tissue (principal)
CPT/HCPCS: 73110

== ENCOUNTER 2024-04-02 08:29 | Outpatient (AMB) | payer BC, SELFPAY ==
--- NOTE | 2024-04-02 08:30 | A.OFFPC_ITS ---
Vital Signs 04/02/24 08:31 Height 5 ft 8 in Weight 199 lb BMI 30.3 BP 106/70 Blood Pressure Location Lt brachial Position Sitting Pulse 92 Pulse Source Pulse Oximeter Pulse Oximetry (%) 99 Oxygen Delivery Method Room Air Intake Visit Reasons: annual exam Intake Note: Pt is here today for PE. Allergies Gluten Allergy (Severe, Uncoded 04/02/24 08:39) Abdominal pain, bloating Dust and Mold Allergy (Mild, Uncoded 04/02/24 08:39) Congestion, sore ears Medication List - Last Reconciled 04/02/24 by Sharon Feliz MD bupropion HCl XL 300 mg PO QAM clobetasol 0.05% mL topical dextroamphetamine-amphetamine 5 mg ER 1 cap PO QAM hyoscyamine sulfate (Levsin/SL) 0.125 mg sublingual BID-QID PRN 30 days miscellaneous medical supply 1 ea miscellaneous .QD Tobacco use date assessed: 04/02/24 Dental Screening Dental Screen Date: 04/02/24 Did you have a dental visit in the last 12 months?: Yes Did you have a dental problem in the last 6 months where you did not have access to dental care?: No Was dental information given to patient?: Patient has dentist HPI annual exam HPI Details Patient presents for physical [facility] Medical History (Updated 04/02/24 @ 13:37 by Sharon Feliz MD) Tonsillith Annual physical exam Bladder prolapse, female, acquired Celiac disease Osteopenia Anxiety and depression Eczema Psoriasis Surgical History H/O colonoscopy History of esophagogastroduodenoscopy (EGD) Family History Father Family history of prostate problems HTN (hypertension) Mother HTN (hypertension) Maternal Grandmother Parkinsons CVD (cardiovascular disease) Maternal Uncle Colon cancer Other Mental health disorder Substance use disorder Social History (Updated 04/02/24 @ 13:34 by Sharon Feliz MD) Household Members: Spouse and Children 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 1. Little interest or pleasure in doing things: not at all 2. Feeling down, depressed, or hopeless: not at all 3. Trouble falling or staying asleep, or sleeping too much: several days 4. Feeling tired or having little energy: several days 5. Poor appetite or overeating: not at all 6. Feeling bad about yourself - or that you are a failure or have let yourself or your family down: not at all 7. Trouble concentrating on things, such as reading the newspaper or watching television: not at all 8. Moving or speaking so slowly that other people could have noticed. Or the opposite - being so fidgety or restless that you have been moving around a lot more than usual: not at all 9. Thoughts that you would be better off or of hurting yourself in some way: not at all Total score: 2 Depression Screening Interpretation: Negative Depression Screening Done: Yes Source: Developed by Drs. Dc Sutton, Zuleyma Acosta, Anthony De La Paz and colleagues, with an educational melisa from [employer]. Thrive Questionnaire Date Thrive assessed: 04/02/24 I am a: Patient What is your living situation today?: I have a steady place to live Within the past 12 months, did the food you bought not last and you didn't have the money to get more?: Never true Within the past 12 months, did you worry whether your food would run out before you got money to buy more?: Never true Do you have trouble paying for medicines?: No Do you have trouble getting transportation to medical appointments?: No Do you have trouble paying your heating and electricity bill?: No Do you have trouble taking care of your child, family member or friend?: No Do you have trouble with day-to-day activities such as bathing, preparing meals, shopping, managing finances, etc.?: No Are you currently unemployed and looking for a job?: No Are you interested in more education?: No Please select the resources that you would like help with: None THRIVE Score: 0 AUDIT C Alcohol Use Questionnaire (AUDIT-C) 1. How often do you have a drink containing alcohol?: Monthly or less 2. How many drinks containing alcohol do you have on a typical day when you are drinking?: 1 or 2 3. How often do you have six or more drinks on one occasion?: Never Total Score: 1 VERÓNICA-7 AMB Questionnaire VERÓNICA-7 Date VERÓNICA - 7 assessed: 04/02/24 Feeling nervous, anxious, or on edge: 0 = Not at all Not being able to stop or control worryin = Not at all Worrying too much about different things: 0 = Not at all Trouble relaxin = Not at all Being so restless that it is hard to sit still: 0 = Not at all Becoming easily annoyed or irritable: 1 = Several days Feeling afraid as if something awful might happen: 0 = Not at all Total VERÓNICA-7 score (0-4 normal; 5-9 mild; 10-14 moderate; 15-21 severe): 1 Source: Developed by Drs. Dc Sutton, Zuleyma Acosta, Anthony De La Paz and colleagues, with an educational melisa from [employer]. Review of Systems Const All systems reviewed & are unremarkable except as noted in HPI and below Reports no additional complaints Eyes Reports no additional complaints ENT Reports no additional complaints Card Reports no additional complaints Resp Reports no additional complaints GI Reports no additional complaints Reports no additional complaints Physical exam (Primary Care) Vital Signs: Last Vital Signs Pulse 92 04/02/24 08:31 BP 106/70 04/02/24 08:31 Pulse Ox 99 04/02/24 08:31 Oxygen Delivery Method Room Air 04/02/24 08:31 BMI result Body Mass Index 30.3 Tobacco/Smoking Status: Tobacco use Status Tobacco use date assessed 04/02/24 04/02/24 08:31 Patient Tobacco Use Status Never used Tobacco 04/02/24 08:31 e-Cigarette/Vaping Use Never Used 04/02/24 08:31 PHQ-9: PHQ-9 Score PHQ-9: Total score 2 04/02/24 09:08 Depression Screening Interpretation: Negative Thrive Assessment: Date of Thrive Assessment Date Thrive assessed 04/02/24 04/02/24 08:44 Const General: no acute distress HENMT Head: Yes normal to inspection Face and sinus: Yes normal facial exam Throat: Yes posterior oropharynx normal Neck Neck: Yes supple Resp Effort & Inspection: normal respiratory effort Auscultation: clear to auscultation bilaterally Cardio Rhythm: regular rhythm Heart sounds: S1 normal heart sound present and S2 normal heart sound present GI Inspection: Yes normal to inspection Palpation (GI): Soft to palpation Percussion: Yes normal to percussion Auscultation: normal bowel sounds Assessment and Plan Assessment & Plan (1) Annual physical exam: Code(s): Z00.00 - Encounter for general adult medical examination without abnormal findings Plan: Well-balanced diet regular physical activity discussed with the patient. She is up-to-date with mammogram Pap smear. Patient will return for fasting blood work (2) Hyperglycemia: Code(s): R73.9 - Hyperglycemia, unspecified (3) Celiac disease: Comment: In remission on gluten free diet, negative EGD and colonoscopy 04/2022, follows up with GI annually Code(s): K90.0 - Celiac disease Orders: Orders Comprehensive [place]. Panel Fast Today R73.9 - Hyperglycemia, unspecified, Z00.00 - Encounter for general adult medical examination without abnormal findings UA w Microscopic Today R73.9 - Hyperglycemia, unspecified, Z00.00 - Encounter for general adult medical examination without abnormal findings Lipid Panel Today R73.9 - Hyperglycemia, unspecified, Z00.00 - Encounter for general adult medical examination without abnormal findings Complete Blood Count Auto Diff Today R73.9 - Hyperglycemia, unspecified, Z00.00 - Encounter for general adult medical examination without abnormal findings Vitamin D 25-OH Total Today R73.9 - Hyperglycemia, unspecified, Z00.00 - Encounter for general adult medical examination without abnormal findings Vitamin B12 and Folate Today R73.9 - Hyperglycemia, unspecified, Z00.00 - Encounter for general adult medical examination without abnormal findings TSH reflex Free T4 Today Z00.00 - Encounter for general adult medical examination without abnormal findings Coding Level of Care Code Est Pt Prev Care 40-64y(94442) Diagnoses Annual physical exam Z00.00 Hyperglycemia R73.9 Celiac disease K90.0
[2024-04-02 08:31] VITALS: BP 106/70; PULSE 92; O2SAT 99; BMI 30.3
== END 2024-04-02 09:23 | disposition home or self-care (01) ==
PROVIDERS: PCP Internal Medicine; Visit Provider Internal Medicine
DX: Z00.00 Encounter for general adult medical examination without abnormal findings (principal); R73.9 Hyperglycemia, unspecified; K90.0 Celiac disease
CPT/HCPCS: 99396

== ENCOUNTER 2024-08-24 08:18 | Outpatient (REF) | payer BC, SELFPAY ==
[2024-08-24 08:48] LABS: MANUAL DIFF FLAG NO
[2024-08-24 09:48] LABS: Basophils Percent Auto 0.3 % (0-2); Eosinophils Absolute Auto 0.1 X10*3/uL (0.0-0.4); Eosinophils Percent Auto 0.9 % (0-4); Hematocrit 40.4 % (37.0-47.0); Hemoglobin 13.9 g/dl (12.0-16.0); Imm Gran Abs Auto 0.03 X10*3/uL (0.00-0.03); Imm Gran Pct Auto 0.3 % (0.0-0.4); Lymphocytes Absolute Auto 1.4 X10*3/uL (1.2-4.9); Lymphocytes Percent Auto 16.5 % (20-40); Mean Corpuscular HGB Conc 34.4 g/dl (31.0-35.0); Mean Corpuscular Hemoglobin 31.7 pg (27.0-33.0); Mean Platelet Volume 10.1 fL (9.4-12.3); Monocytes Absolute Auto 0.7 X10*3/uL (0.1-1.2); Neutrophils Absolute Auto 6.4 x10*3/uL (2.0-8.3); Platelet Count 315 X10*3/uL (160-400); Red Blood Count 4.39 X10*6/uL (4.20-5.50); Red Cell Distribution Width 11.4 % (11.0-16.0); White Blood Count 8.6 X10*3/uL (4.8-10.8)
[2024-08-24 09:49] LABS: Alanine Aminotransferase 22 U/L (0-31); Alkaline Phosphatase 73 U/L (39-117); Anion Gap 10 (12-20); Aspartate Amino Transferase 21 U/L (5-31); Bilirubin Total 0.9 mg/dL (0.0-1.0); Blood Urea Nitrogen 12 mg/dL (9-16); Calcium 9.2 mg/dL (8.4-10.2); Carbon Dioxide 28 mmol/L (22-29); Chloride 101 mmol/L (96-108); Estimated Glomerular Filt Rate > 60; Glucose Random 94 mg/dL (60-115); Potassium 3.9 mmol/L (3.3-5.1); Sodium 135 mmol/L (135-145); Total Protein 6.9 g/dL (6.5-8.0)
[2024-08-24 09:50] LABS: C Reactive Protein 0.37 mg/dL (< or = 0.50); Cholesterol 131 mg/dL (<200); HDL Cholesterol 37 mg/dL (>40); LDL Cholesterol Calculated 81 mg/dL (<100); Triglycerides 69 mg/dL (<150)
[2024-08-24 10:18] LABS: TSH reflex Free T4 1.32 uIU/mL (0.32-4.0); Vitamin D 25-OH Total 39.2 ng/mL (>30)
[2024-08-24 10:22] LABS: Folate 15.5 ng/mL (> or = 4.0); Vitamin B12 743 pg/mL (200-900)
[2024-08-26 17:34] LABS: Transglutaminase Ab IgG <1.0 U/mL; Transglutaminase IgA 1.5 U/mL
== END 2024-08-24 08:19 | disposition home or self-care (01) ==
LOC: HO.LAB 08:18
PROVIDERS: Absent Provider Internal Medicine; PCP Internal Medicine; Visit Provider Internal Medicine Gastroenterology
DX: Z00.00 Encounter for general adult medical examination without abnormal findings (principal); K90.0 Celiac disease; R73.9 Hyperglycemia, unspecified; E03.9 Hypothyroidism, unspecified
CPT/HCPCS: 36415; 80053; 80061; 82306; 82607; 82746; 84443; 85025; 85027; 86140; 86364

== ENCOUNTER 2024-09-09 09:19 | Outpatient (REF) | payer BC, SELFPAY ==
--- NOTE | ~2024-09-09 | MM_ITS ---
EXAMINATION: MM DIAGNOSTIC DIGITAL BREAST TOMOSYNTHESIS, CLINICAL INFORMATION: Two-year follow-up for subcentimeter oval mass in the right breast on CC view central breast. COMPARISON: Mammography: Comparison is made with relevant prior exams. TECHNIQUE: Digital breast mammography with tomosynthesis is performed in both the craniocaudal and mediolateral oblique views along with computer-aided detection (CAD). FINDINGS: There are scattered areas of fibroglandular density (ACR BI-RADS breast composition Category b). Previously seen asymmetry in the retroareolar region of the right breast on CC view is less conspicuous compared with prior's and not significantly changed dating back for 2 years and therefore benign. There are no significant masses, abnormal calcifications, or other abnormalities. Results are provided to the patient at time of visit by the technologist. MM/MM tomosynthesis diagnostic BI IMPRESSION: No mammographic evidence of malignancy. ASSESSMENT: BI-RADS BI-RADS 2 - Benign Findings RECOMMENDATION: 1 year F/U This patient's information was entered into a reminder system with a target due date for their next mammogram. Electronically signed by: Rosemary Patten DO 09/09/2024 09:45 AM JORGE
--- OUTSIDE RECORDS SUMMARY | 2024-09-11 13:54 | XMS_ITS | Continuity of Care Document ---
Author Organization [facility] Address [address] [place] [address], [address] [place] [address]- Care Team Providers Care Senior Technical Program Manager Name Role Phone Sharon Feliz MD Primary Care Physician [id number] Date[facility]): [facility] [address], [address] [place] [id number] Encounter Type: Triage Allergies, Adverse Reactions, Alerts Substance Criticality Severity Reaction Reaction Severity Status Dust Low criticality Mild sneezing Acti ve Glutens Low criticality Mild celiac; vomiting, pain Active Mold Low criticality Mild sneezing Acti ve Immunizations Given and Recorded Vaccine Date Status Refusal Reason Fluzone (oldterm) 09/08/14 Given Medications Adderall 5 mg oral tablet 1 tablet = 5 mg, By Mouth, Daily in AM, # 60 tablet, 0 Refills, Maintenance, 01/09/24 9:54:00 AM EDT,Tablet, Partial fill upon patient request if the prescription is for a schedule II opioid drug. Start Date: 01/09/24 Status: Ordered Quantity: 60.0 Unit: tablet Repeat number: 1 BuPROpion = 300 mg, By Mouth, Daily in AM, 0 Refills, Maintenance, 09/06/21 4:36:00 PM EST, Partial fill upon patient request if the prescription is for a schedule II opioid drug. Start Date: 09/06/21 Status: Ordered Repeat number: 1 Citracal 250 mg + D 1 tablet, By Mouth, 2 times a day, 0 Refills, Maintenance, 03/30/23 3:09:00 PM EDT, Partial fill upon patient request if the prescription is for a schedule II opioid drug. Start Date: 03/30/23 Status: Ordered Repeat number: 1 clindamycin 1% topical gel 1 application, Topically, Daily at bedtime, apply a thin film to affected area after washing, # 30 Gm, 0 Refills, Maintenance, 09/06/21 5:08:00 PM EST, Gel, [facility]/pharmacy #[id number], Partial fill upon patient request if the prescription is for a schedule II opioid drug., 1 application Topically Daily at bedtime,Instr:apply a thin film to affected area after washing, 175.26, cm, 09/06/21 16:34:00 EST, Height Start Date: 09/06/21 Status: Ordered Quantity: 30.0 Unit: g Repeat number: 1 Dextroamphetamine 7.5 mg, By Mouth, adhd prn, Refills 0, Tot. Refills 0, Maintenance, 03/30/23 3:10:00 PM EDT, Partialfill upon patient request if the prescription is for a schedule II opioid drug. Start Date: 03/30/23 Status: Ordered Repeat number: 1 Fish Oil By Mouth, 0 Refills, Maintenance, 03/30/23 3:10:00 PM EDT, Partial fill upon patient request if the prescription is for a schedule II opioid drug. Start Date: 03/30/23 Status: Ordered Repeat number: 1 ibuprofen 800 mg oral tablet 800 mg, 1, tablet, By Mouth, Every 8 hours, # 30 tablet, Refills 0, Tot. Refills 0, Maintenance, 02/01/24 2:58:00 PM EDT, Route to Pharmacy Electronically, [facility]/pharmacy #[id number], Partial fill upon patientrequest if the prescription is for a schedule II opioid drug., 172.72, cm, 01/30/24 11:21:00 EDT, Height, 88.64, kg, 01/30/24 11:21:00 EDT, Dry Weight Start Date: 02/01/24 Status: Ordered Quantity: 30.0 Unit: tablet Repeat number: 1 Liletta 52 mg intrauterine device 1 each = 52 mg, Intrauterine, Once, Please ship to [address] [place] [address] Insertion 04/25, # 1 each, 0 Refills, Soft Stop, 03/16/23 7:31:00 AM EDT, [facility], Partial fillupon patient request if the prescription is for a schedule II opioid drug., 175.26, cm, 02/14/23 11:31:00 EDT, Height, 89.5, kg, 09/17/21 16:51:00 EST, Dry Weight Start Date: 03/16/23 Status: Ordered Quantity: 1.0 Unit: each Repeat number: 1 Indication: Excessive and frequent menstruation with regular cycle methenamine hippurate 1 gm oral tablet 1 tablet = 1 Gm, By Mouth, 2 times a day, For UTI prevention, # 60 tablet, 1 Refills, Maintenance, 06/20/24 12:07:00 PM EDT, [facility]/pharmacy #[id number], Partial fill upon patient request if the prescription is for a schedule II opioid drug., 172.72, cm, 03/15/24 11:37:00 EDT, Height, 90.8, kg, 02/14/24 8:35:00 EDT, Dry Weight Start Date: 06/20/24 Status: Ordered Quantity: 60.0 Unit: tablet Repeat number: 2 Multivitamin 1 tablet, By Mouth, Daily, 0 Refills, Maintenance, 11/01/16 4:12:53 PM EST Start Date: 11/01/16 Status: Ordered Repeat number: 1 Naltrexone By Mouth, Daily, for inflammation low dose, 0 Refills, Maintenance, 05/22/23 9:23:00 AM EDT, Partialfill upon patient request if the prescription is for a schedule II opioid drug. Start Date: 05/22/23 Status: Ordered Repeat number: 1 oxyCODONE 5 mg oral tablet 5 mg, 1, tablet, By Mouth, Every 6 hours, PRN, # 6 tablet, Refills 0, Tot. Refills 0, Maintenance, for pain, 02/01/24 2:58:00 PM EDT, Route to Pharmacy Electronically, [facility]/pharmacy #[id number], Partial fill upon patient request if the prescription is for a schedule II opioid drug., 172.72, cm, 01/30/24 11:21:00 EDT, Height, 88.64, kg, 01/30/24 11:21:00 EDT, Dry Weight Start Date: 02/01/24 Status: Ordered Quantity: 6.0 Unit: tablet Repeat number: 1 Tylenol 325 mg oral tablet 975 mg, 3, tablet, By Mouth, Every 8 hours, PRN, # 30 tablet, Refills 0, Tot. Refills 0, Maintenance, for pain, 02/01/24 2:58:00 PM EDT, Route to Pharmacy Electronically, [facility]/pharmacy #[id number], Partial fill upon patient request if the prescription is for a schedule II opioid drug., 172.72, cm, 01/30/24 11:21:00 EDT, Height, 88.64, kg, 01/30/24 11:21:00 EDT, Dry Weight Start Date: 02/01/24 Status: Ordered Quantity: 30.0 Unit: tablet Repeat number: 1 Vitamin B12 By Mouth, Daily in AM, 0 Refills, Maintenance, 11/01/16 4:13:02 PM EST Start Date: 11/01/16 Status: Ordered Repeat number: 1 Zinc = 140 mg, By Mouth, Daily, 0 Refills, Maintenance, 03/30/23 3:10:00 PM EDT, Partial fill upon patient request if the prescription is for a schedule II opioid drug. Start Date: 03/30/23 Status: Ordered Repeat number: 1 Problem List Condition Confirmation Course Effective Dates Status [facility] atus Informant Celiac sprue Confirmed Active Cystocele with prolapse Confirmed Active Depression Confirmed Active Fibroid Confirmed Active Osteopenia Confirmed Active Adenomyosis Confirmed Active Social History Social History Type Response Smoking Status Never smoker entered on: 11/01/16 Sex Sex Representation Female (finding) Patient Care team information Care Team Personnel Name: Sharon Feliz MD Position: [facility] Physician - Primary Care Member Role: PCP Address: [address] [place], [place] [address] Telecom: Care Team Related Persons Name: MARISSA WRAY Name: RONALD PEREZ Insurance Providers Guarantor name: ELSA LUTTINEN Health Plan Information #: 1 Payer: HMO [employer] Member Number: NA Policy Number: NA Group Number: NA
--- OUTSIDE RECORDS SUMMARY | 2024-09-11 13:54 | XMS_ITS | Patient Health Record ---
Author Organization [facility] Address [address], [place] [id number] Care Team Providers Care Building Supplies Salesperson Retail Name Role Phone Sharon Feliz MD Primary Care Provider Kait Ovalle Unavailable [phone] Allergies Allergen (clinical drug ingredient) Drug/Non Drug Allergy documented on EMR Reaction Allergy Type Onset Date Status dust (uncoded) Unknown Allergy Activ e Gluten gluten sensitivity (uncoded) Unknown Allergy Active mold (uncoded) Unknown Allergy Activ e tomato allergenic extract tomato (uncoded) rash Allergy Active Reason For Referral No Information Medications Medication SIG (Take, Route, Frequency, Duration) Notes Start Date End Date Status Low Dose Naltrexone 4.5mg 1 capsule oral at bedtime 3mg Active Liletta (52 MG) 20.1 MCG/DAY Intrauterine for 90 Days Act lulú Wellbutrin XL 300 MG 1 tablet in the mor elmer Orally Once a day Active Amphetamine-Dextroamphet ER 10 MG Oral for 30 Days Active Problems Problem Type SNOMED Code ICD Code Onset Dates Problem Status W/U Status Risk Notes Problem Celiac disease (217402235) Celiac disease (579.0) Active confirmed (Abner) Problem Psoriasis (7186601) Other psoriasis (696.1) Active confirmed (Abner) Problem Acne (38381289) Other acne (706.1) Active confirmed (Abner) Problem Hypothyroidism (25472823) Hypothyroidism, unspecified (E03.9) Active confirmed Problem Chronic frontal sinusitis (96569023) Chronic frontal sinusitis (J32.1) Active confirmed Problem Constipation (92001574) Constipation, unspecified (K59.00) Active confirmed 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 Problem Excessive and frequent menstruation (494535924) Excessive and frequent menstruation with regular cycle (N92.0) Active confirmed Problem Intermenstrual bleeding - irregular (60835949) Excessive and frequent menstruation with irregular cycle (N92.1) Active confirmed Problem Body mass index 30.00 to 34.99 (347782283956605) Body mass index (BMI) 32.0-32.9, adult (Z68.32) Active confirmed Vital Signs Height 68 in 08/07/2024 unable to obtai n other vitals (telehealth) Encounters Encounter Location Date Provider Diagnosis [address] [id number] 08/07/2024 Kait Jimenez Hypothyroidism, unspecified E03.9 ; 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 ; Pain in right knee M25.561 and Pain in left knee M25.[address] [id number] 12/13/2023 Kait Jimenez [address] [id number] 07/24/2024 Kait Jimenez [address] [id number] 08/07/2024 Kait Jimenez Assessments Encounter Date Diagnosis (ICD Code) Assessment Notes Treatment Notes Treatment Clinical Notes Section Notes 08/07/2024 Hypothyroidism, unspecified (ICD-10 - E03.9) ... Discussed continuation of Low Dose Naltrexone. Medication side effects reviewed including risks, benefits, and alternatives. Pt denies narcotic use and agrees not to use narcotics while on this medication. Due to increase in psoriasis, would recommend increasing dose. Patient nervous as when she trialed 4.5mg she had increased anxiety and panic attacks. Patient instructed to continue 3mg along with 0.5mg capsules for titration. Rx to compounding pharmacy for LowDoseNaltrexone 0.25mg caps. Patient to trial higher doses and call pioneer with dose that agrees with patient. Follow up in 1 year for LDN, call with any sensitivity, worrisome side effects or questions. 08/07/2024 Guttate psoriasis (ICD-10 - L40.4) ... Discussed continuation of Low Dose Naltrexone. Medication side effects reviewed including risks, benefits, and alternatives. Pt denies narcotic use and agrees not to use narcotics while on this medication. Due to increase in psoriasis, would recommend increasing dose. Patient nervous as when she trialed 4.5mg she had increased anxiety and panic attacks. Patient instructed to continue 3mg along with 0.5mg capsules for titration. Rx to compounding pharmacy for LowDoseNaltrexone 0.25mg caps. Patient to trial higher doses and call pioneer with dose that agrees with patient. Follow up in 1 year for LDN, call with any sensitivity, worrisome side effects or questions. 08/07/2024 Pain in right knee (ICD-10 - M25.561) ... Discussed continuation of Low Dose Naltrexone. Medication side effects reviewed including risks, benefits, and alternatives. Pt denies narcotic use and agrees not to use narcotics while on this medication. Due to increase in psoriasis, would recommend increasing dose. Patient nervous as when she trialed 4.5mg she had increased anxiety and panic attacks. Patient instructed to continue 3mg along with 0.5mg capsules for titration. Rx to compounding pharmacy for LowDoseNaltrexone 0.25mg caps. Patient to trial higher doses and call pioneer with dose that agrees with patient. Follow up in 1 year for LDN, call with any sensitivity, worrisome side effects or questions. 08/07/2024 Pain in left knee (ICD-10 - M25.562) ... Discussed continuation of Low Dose Naltrexone. Medication side effects reviewed including risks, benefits, and alternatives. Pt denies narcotic use and agrees not to use narcotics while on this medication. Due to increase in psoriasis, would recommend increasing dose. Patient nervous as when she trialed 4.5mg she had increased anxiety and panic attacks. Patient instructed to continue 3mg along with 0.5mg capsules for titration. Rx to compounding pharmacy for LowDoseNaltrexone 0.25mg caps. Patient to trial higher doses and call pioneer with dose that agrees with patient. Follow up in 1 year for LDN, call with any sensitivity, worrisome side effects or questions. 08/07/2024 Other ... Discussed continuation of Low Dose Naltrexone. Medication side effects reviewed including risks, benefits, and alternatives. Pt denies narcotic use and agrees not to use narcotics while on this medication. Due to increase in psoriasis, would recommend increasing dose. Patient nervous as when she trialed 4.5mg she had increased anxiety and panic attacks. Patient instructed to continue 3mg along with 0.5mg capsules for titration. Rx to compounding pharmacy for LowDoseNaltrexone 0.25mg caps. Patient to trial higher doses and call pioneer with dose that agrees with patient. Follow up in 1 year for LDN, call with any sensitivity, worrisome side effects or questions. Plan Of Treatment Pending Test Test Name Order Date COMPREHENSIVE METABOLIC PANEL 08/17/2023 Next Appt Details Provider Name:Kait Jimenez, 08/05/2025 09:30:00 AM, [address] [place] [address], [phone], Insurance Providers Payer Name Payer Address Payer Phone Subscriber Number Group Number Insured Name Patient Relationship to Insured Coverage Start Date Coverage End Date [facility] [address] [place], [place] [id number] Adeline Laura Self - patient is the insured Medical (General) History Medical History History ICD Code celiac osteopenia psoriasis Vitamin B12 deficiency Vitamin D deficiency bladder prolapse anxiety/depression Hypothyroidism-borderline Surgical History Surgery Date(Month/Year) colonoscopy 2012, 2022 endoscopy 2012 DEXA scan 2013, 2018 Hospitalization History Reason Date(Month/Year) Childbirth only
--- OUTSIDE RECORDS SUMMARY | 2024-09-11 13:54 | XMS_ITS ---
Author Organization [facility] Address [address] [place] [id number] Care Team Providers Care Local Area Network Administrator Name Role Phone Sharon Feliz MD Primary Care Provider Unavaila Kait Santana Unavailable [phone] REASON FOR VISIT labs? 08/07 appt Encounters Encounter Location Date Provider Diagnosis [address] [id number] 07/24/2024 Kait Jimenez Plan Of Treatment Next Appt Details Provider Name:Kait Jimenez, 08/05/2025 09:30:00 AM, [address] [place] [address], [phone], Progress Notes * Adeline PEREZ EDOB:[birth year] (44 yo F)Acc No.[id number]:07/24/2024 Patient:?Adeline PEREZ :1980???Age:44 Y???Sex:Female Address:[address] [place] [address], [phone] * true * Date:? Generated for Printi ng/Faxing/eTransmitting on:?09/11/2024 01:54 PM EST
--- OUTSIDE RECORDS SUMMARY | 2024-09-11 13:54 | XMS_ITS ---
Author Name [facility] Organization Unknown History of Medication Use Medication Directions Dispensed Refills Start Date End Date Stat Amphetamine-Dextroa mphet ER 10 MG Amphetamine-Dextroa mphet ER 10 MG 08/10/2024 10/01/9999 active Liletta (52 MG) 20.1 MCG/DAY Liletta (52 MG) 20.1 MCG/DAY 12/16/2023 active Low Dose Naltrexone 4.5mg Low Dose Naltrexone 4.5mg 12/16/2023 active Wellbutrin XL 300 MG Wellbutrin XL 300 MG 12/16/2023 active Allergies Allergen Reaction Severity Comment Documented Date Source Statu s TOMATO ALLERGENIC EXTRACT rash [facility]
--- OUTSIDE RECORDS SUMMARY | 2024-09-11 13:54 | XMS_ITS ---
Author Organization [facility] Address [address] [place] [phone] Care Team Providers Care Entomology Teacher Name Role Phone Sharon Feliz MD Primary Care Provider Kait Ovalle Unavailable [phone] Allergies Allergen (clinical drug ingredient) Drug/Non Drug Allergy documented on EMR Reaction Allergy Type Onset Date Status dust (uncoded) Unknown Allergy Activ e Gluten gluten sensitivity (uncoded) Unknown Allergy Active mold (uncoded) Unknown Allergy Activ e tomato allergenic extract tomato (uncoded) rash Allergy Active REASON FOR VISIT LDN F/U Medications Medication SIG (Take, Route, Frequency, Duration) Notes Start Date End Date Status Low Dose Naltrexone 4.5mg 1 capsule oral at bedtime 3mg Active Liletta (52 MG) 20.1 MCG/DAY Intrauterine for 90 Days Act lulú Wellbutrin XL 300 MG 1 tablet in the mor elmer Orally Once a day Active Amphetamine-Dextroamphet ER 10 MG Oral for 30 Days Active Vital Signs Height 68 in 08/07/2024 unable to obtain other vital s (telehealth) Encounters Encounter Location Date Provider Diagnosis [address] [id number] 08/07/2024 Kait Jimenez Hypothyroidism, unspecified E03.9 ; 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 Plan Of Treatment Next Appt Details Follow Up: 1yr LDN, Reason: Provider Name:Kait Jimenez, 08/05/2025 09:30:00 AM, [address] [place] [address], [phone], Progress Notes * Adeline PEREZ EDOB:[birth year] (44 yo F)Acc No.[id number]:08/07/2024 Patient:?Adeline PEREZ Provider:?Kait Jimenez :1980???Age:44 Y???Sex:Female D ate:08/07/2024 Address:[address] [place] [id number] Pcp:Sharon Feliz MD Subjective: * Chief Complaints: * ???1. LDN F/U. * HPI: ???HPI:? Patient identified. Patient location: [place] location in private place to have discussion Provider location: [place]____ License number provided. Disclosure of telehealth limitations. Pt verbally agrees to telehealth encounter. ???CC1:? LDN (08/07/24) -??current dose: 3mg - with change of seasons notices increased discomfort in hands other quevedo no consistant joint pain? - psoriasis flares possibly due to recent increase of dying hair? LDN (08/14/23) - indication: anxiety, depressed mood, psoriasis, borderline hypothyroid, joint pain (knees), weight loss resistance, request immune system support - current dose: 3mg - changes: occasional psoriasis flares on scalp, stable joint pain, - denies* narcotic use -Last CMP: 10/26/23- WNL Follow up LDN (06/02/22) - indication: anxiety, depressed mood, psoriasis, borderline hypothyroid, joint pain (knees), weight loss resistance, request immune system support - current dose: 3mg-higher dose trial increased anxiety - changes: Had baseline colonoscopy. Normal. Feels mood has been stable. Sleeping better, Less jt pains. Requests to continue. - pain scale: 2/10 - side effects: None - narcotic use: denies (03/08/21) - indication: anxiety, depressed mood, psoriasis, borderline hypothyroid, joint pain (knees), weight loss resistance, request immune system support - current dose: 3mg - - changes: Added Wellbutrin XL in november through PCP to support increase in stress during pandemic feeling better with that addition. Able to have some purposeful weight loss 6 lbs over the past few months, working with dietian. Recent blood work showed thyroid fnc tests WNL through PCP. - pain scale: 2/10 - side effects: panic attacks at 4.5mg dose; none currently happy with dosing. - narcotic use: denies HPI(02/17/2020) - indication: anxiety, depressed mood, psoriasis, borderline hypothyroid, joint pain (knees), weight loss resistance - current dose: 3mg - changes: weight loss - pain scale: 2/10 - side effects: panic attacks at 4.5mg dose; none currently - narcotic use: denies HPI// (11/2019) - Hypothyroidism, anxiety/depression, psoriasis - pain scale: 3-4/10 - current symptoms: joint pain (knees) going up and down stairs; fatigue; weight gain; Psoriasis on scalp and in ears; denies definitive joint aches/pain - prior interventions: antidepressants (without relief) - narcotic use: denies. ???Care Team:? Dr. Feliz- PCP Dr. Salazar- GI. ???Supplements:? MVI Calcium w/ D3 Magnesium Fish oil Zinc B12 intermitently. Stopped mood support tincture 1 dropperful per day SAMe 400mg/Active B12 Inositol powder 6g digestive enzyme probiotic. * ROS:?General/Constitutional:?Patient denies?headache, fatigue, fever.?Ophthalmologic:?Patient denies?blurred vision.?Respiratory:?Patient denies?shortness of breath.?Cardiovascular:?Patient denies?chest pain , palpitations.?Gastrointestinal:?Patient denies?abdominal pain , constipation , diarrhea.?Skin:?Patient denies?rash , itching.? * Medical History:?Celiac, Ost eopenia, Psoriasis, Vitamin B12 deficiency, Vitamin D deficiency, Bladder prolapse, anxiety/depression, Hypothyroidism-borderline. 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 control?vasectomy.? * OB History:?Total pregnancies?4.?Total living children?2, ages of children 4.5, 1.?Miscarriage(s)?2.? # 1:?normal spontaneous vaginal delivery (), 2015 [place] .? # 2:?spontaneous , early; no D & C (methotrexate).? # 3?normal spontaneous vaginal delivery (), 2018 [place] no complications.? # 4:?spontaneous , 11/2019.? * Surgical History:?colonoscop y 2012, 2022, endoscopy 2012, DEXA scan 2013, 2018. * Hospitalization/Major Diagno stic Procedure:?Childbirth only . * Family History:?Father: rita meadows 70 yrs, hypertension, mental illness, hyperlipidemia.?Mother: alive 67 yrs, hypertension, mental illness, Parkinsons.?Paternal Grand Father: diabetes mellitus, hyperlipidemia.?Paternal Grand Mother: cardiac disease, mental illness.?Maternal Grand Father: cardiac disease, mental illness.?Maternal uncle: hypertension, cancer.?Maternal aunt: hypertension, mental illness, Parkinsons.?Siblings: alive, juvenile diabetes mellitus, mental illness.?Children: alive, healthy so far.?1 brother(s) . 1 son(s) , 1 daughter(s) . .? * Social History:?denies tobacco use alcohol consumption 2/week; wine edible marijuana occationally. * Medications:?Taking Wellbutr in XL 300 MG Tablet Extended Release 24 Hour 1 tablet in the morning Orally Once a day , Taking Low Dose Naltrexone 4.5mg capsule 1 capsule oral at bedtime , Notes to Pharmacist: 3mg, Taking Liletta (52 MG) 20.1 MCG/DAY Intrauterine Device Intrauterine , Taking Amphetamine-Dextroamphet ER 10 MG Capsule Extended Release 24 Hour Oral , Medication List reviewed and reconciled with the patient * Allergies:?Dust, Mold, Tomat o: Rash, Gluten Sensitivity. Objective: * Vitals:?Ht: 68 in. unable to obtain other vitals (telehealth). * Examination: ???General Examination: ???unable to visualize patient due to poor connectivity. 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 ... Discussed continuation of Low Dose Naltrexone. Medication side effects reviewed including risks, benefits, and alternatives. Pt denies narcotic use and agrees not to use narcotics while on this medication. Due to increase in psoriasis, would recommend increasing dose.? Patient nervous as when she trialed 4.5mg she had increased anxiety and panic attacks. Patient instructed to continue 3mg along with 0.5mg capsules for titration. Rx to compounding pharmacy for LowDoseNaltrexone 0.25mg caps.? Patient to trial higher doses and call mccamey with dose that agrees with patient.? Follow up in 1 year for LDN, call with any sensitivity, worrisome side effects or questions. Plan: * Treatment: * Preventive Medicine:?-Continue current dose of LDN at bedtime [facility] [address], [place] Tele: [phone] -Do not take opioids* while taking low dose naltrexone (LDN). *Common opioids/opioid like medications and supplements: Tramadol, oxycodone, Oxycontin, Percocet, Vicodin, hydrocodone, morphine, Dilaudid, fentanyl, kratom, ketamine. -Stop LDN at least 48 hours before surgery. -Wait at least 48 hours after taking a narcotic to restart LDN. -Follow up in 1 year or sooner with questions/concerns More info: [email or web address]. * Follow Up:?1yr LDN * * Sign off status: Completed true * Provider:Aj Jimenez Date:?08/07/2024 Generated for Miguel vasquez/Eden/Kimmie on:?09/11/2024 01:54 PM EST History and Physical Notes * HPI (History of Present Illness) Category Sub-Category Detail Notes Category Not es HPI Patient identified. Patient location: [place] location in private place to have discussion Provider location: [facility]____ License number provided. Disclosure of telehealth limitations. Pt verbally agrees to telehealth encounter. CC1 LDN (08/07/24) - current dose: 3mg - with change of seasons notices increased discomfort in hands other quevedo no consistant joint pain - psoriasis flares possibly due to recent increase of dying hair LDN (08/14/23) - indication: anxiety, depressed mood, psoriasis, borderline hypothyroid, joint pain (knees), weight loss resistance, request immune system support - current dose: 3mg - changes: occasional psoriasis flares on scalp, stable joint pain, - denies* narcotic use -Last CMP: 10/26/23- WNL Follow up LDN (06/02/22) - indication: anxiety, depressed mood, psoriasis, borderline hypothyroid, joint pain (knees), weight loss resistance, request immune system support - current dose: 3mg-higher dose trial increased anxiety - changes: Had baseline colonoscopy. Normal. Feels mood has been stable. Sleeping better, Less jt pains. Requests to continue. - pain scale: 2/10 - side effects: None - narcotic use: denies (03/08/21) - indication: anxiety, depressed mood, psoriasis, borderline hypothyroid, joint pain (knees), weight loss resistance, request immune system support - current dose: 3mg - - changes: Added Wellbutrin XL in november through PCP to support increase in stress during pandemic feeling better with that addition. Able to have some purposeful weight loss 6 lbs over the past few months, working with dietian. Recent blood work showed thyroid fnc tests WNL through PCP. - pain scale: 2/10 - side effects: panic attacks at 4.5mg dose; none currently happy with dosing. - narcotic use: denies HPI(02/17/2020) - indication: anxiety, depressed mood, psoriasis, borderline hypothyroid, joint pain (knees), weight loss resistance - current dose: 3mg - changes: weight loss - pain scale: 2/10 - side effects: panic attacks at 4.5mg dose; none currently - narcotic use: denies HPI// (11/2019) - Hypothyroidism, anxiety/depression, psoriasis - pain scale: 3-4/10 - current symptoms: joint pain (knees) going up and down stairs; fatigue; weight gain; Psoriasis on scalp and in ears; denies definitive joint aches/pain - prior interventions: antidepressants (without relief) - narcotic use: denies Supplements MVI Calcium w/ D3 Magnesium Fish oil Zinc B12 intermitently. Stopped mood support tincture 1 dropperful per day SAMe 400mg/Active B12 Inositol powder 6g digestive enzyme probiotic Care Team Dr. Feliz- PCP Dr. Salazar- GI Examination Category Sub-Category Detail Notes Category Not es General Examination unable t o visualize patient due to poor connectivity
--- OUTSIDE RECORDS SUMMARY | 2024-09-11 13:54 | XMS_ITS ---
Author Organization [facility] Address [address] [place] [phone] Care Team Providers Care Respite Care Provider Name Role Phone Sharon Feliz MD Primary Care Provider Unavaila Kait Santana Unavailable [phone] REASON FOR VISIT ldn f/u #W Encounters Encounter Location Date Provider Diagnosis [address] [id number] 08/07/2024 Kait Jimenez Plan Of Treatment Next Appt Details Provider Name:Kait Jimenez, 08/05/2025 09:30:00 AM, [address] [place] [address], [phone], Progress Notes * Adeline PEREZ EDOB:[birth year] (44 yo F)Acc No.[id number]:08/07/2024 Patient:?Adeline PEREZ :1980???Age:44 Y???Sex:Female Address:[address] [place] [address], [phone] * true * Date:? Generated for Printi ng/Fapolinag/eTransmitting on:?09/11/2024 01:53 PM EST
== END 2024-09-09 09:20 | disposition home or self-care (01) ==
LOC: HO.MAMMO 09:19
PROVIDERS: PCP Internal Medicine; Visit Provider Internal Medicine
DX: N63.15 Unspecified lump in the right breast, overlapping quadrants (principal)
CPT/HCPCS: 77062; 77066

== ENCOUNTER → 2024-09-09 09:30 | Outpatient (BNV) | payer BC, SELFPAY | PROVIDERS: PCP Internal Medicine; Visit Provider Internal Medicine | DX: R92.323 Mammographic fibroglandular density, bilateral breasts (principal); R92.2 Inconclusive mammogram | CPT/HCPCS: 77062; 77066 ==

== ENCOUNTER 2024-09-19 08:21 | Outpatient (AMB) | payer BC, SELFPAY ==
--- NOTE | 2024-09-19 08:26 | MHC.OFFVIS ---
Vital Signs 09/19/24 08:30 Height 5 ft 8 in Weight 190 lb BMI 28.9 BP 113/80 Blood Pressure Location Lt brachial Position Sitting Pulse 93 Intake Visit Reasons: yearly follow up Intake Note: Patient yearly follow up for celiac disease and lab results. Patient cc: acid reflex and denies any other GI issues for today. Investment Underwriter Required: No Accompanied by: Self / Same As Patient Allergies Gluten Allergy (Severe, Uncoded 04/02/24 08:39) Abdominal pain, bloating Dust and Mold Allergy (Mild, Uncoded 04/02/24 08:39) Congestion, sore ears Medication List - Last Reconciled 09/19/24 by Gregoria Salazar MD bupropion HCl XL 300 mg PO QAM clobetasol 0.05% mL topical hyoscyamine sulfate (Levsin/SL) 0.125 mg sublingual BID-QID PRN 30 days miscellaneous medical supply 1 ea miscellaneous .QD omeprazole 20 mg PO DAILY 30 days HPI HPI yearly follow up: Details: GI clinic visit for this 44 YF with psoriasis, osteopenia followed in GI for GERD and celiac disease. Patient has been followed by Dr. Fitzpatrick since March 2020. TODAY'S VISIT: Started having heartburn before - had a sensation of food getting stuck. Intermittent early satiety. Started taking Omeprazole and stopped drinking [place] water which has helped. Has to take liquid Mylanta a few times a week despite taking Omeprazole Tried making dietary changes. Noted an episode of severe upper abd pain (without radiation) after drinking [place] water Denies changes in wt PAST VISITS: Lab results reviewed with the patient. Continues to feel a little tired (chronic issue)- Wonders if it is related to ADHD Tried low dose Aderrall and felt better Takes Magnesium every night for contstipation and has a BM daily. Taking low dose Nalteroxone ? for autoimmune disease Noted jt pains in the hands over the summer and felt better with above Had foot and mouth disease after 8 yr old son and 5 yr old daughter caught it from school - now recovered Dad has Castro's esophagus and colon polyps and has a colonoscopy every 5 yrs Brother has GERD. Paternal GM had esophageal issues followed by esophageal ca Maternal GM had hiatal hernia Maternal uncle had colon cancer in his 50's She was feeling a little tired and has been taking a MVI daily. Takes liquid B12 and vitamin D less frequently Takes Citracal every morning. If gets gluten accidently she has abd cramping relieved by Levsin S/L If she is exposed to a lot of gluten, she can have vomiting and no cramping. Intermittent constipation and takes a magnesium pill in the evening which is helpful. (Has TMJ and grinds her teeth at night and Magnesium helps with this) EGD and Colon results reviewed with the patient. Noted abdominal pain after the procedures lasting for a day Had COVID infection 03/10/22 with GI symptoms. Diagnosed with Celiac disease in 2009 by lab tests. Follows a strict GFD.? Notes symptoms even with minimal exposure. (she thinks she was accidently exposed to gluten a few days ago - noted abdominal cramps and bloating)Had an EGD and Colonoscopy in 2011 for diarrhea and rectal bleeding - normal per patient. Pt has been unable to get records (? have been shredded) Patient denies symptoms of heartburn, dysphagia, nausea, vomiting, change in appetite. Intentional wt loss. Takes Citracal and takes Magnesium daily for constipation and has a BM daily. Denies recent change in bowel habits, diarrhea, black stools or rectal bleeding. Patient denies major cardiac or pulmonary problems, loud snoring or sleep apnea Denies problems with anesthesia in the past. Denies being on chronic anticoagulation - takes Ibuprofen prn for MUÑOZ and menstrual cramps. Takes 3 glasses of wine a week and denies smoking. 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 Two children - son 6 yrs, daughter 3 yrs. Patient denies known family history of celiac disease, colon polyps, colon cancer or other GI malignancies. No one wants to get tested.? Daughter has one of the Genes for celiac and no symptoms. Dad has colon polyps at age 40 yrs. PAST EGD/COLONOSCOPY:? Had an EGD and Colonoscopy in 2012 for diarrhea and rectal bleeding - normal per patient. Pt has been unable to get records (? have been shredded) LABS IN [facility] :? Reviewed IMAGING STUDIES:? 10/19/21 bone density study: 1. DIAGNOSIS: Based on the lowest Z-score value of -1.7 in the lumbarspine, the patient's bone density is within the expected range for age. ENDOSCOPIC STUDIES:? 04/25/22 EGD AND COLONOSCOPY SHOWED: Endoscopy Findings: STOMACH: Mild gastric erythema with a few 1 cms chronic appearing antral erosions. DUODENUM: Normal - biopsies were obtained from 3rd part of the duodenum to follow up on celiac sprue Colonoscopy Findings: No polyps were detected. Random biopsies were obtained from the right colon to check for microscopic colitis Moderate diverticulosis seen in the sigmoid colon Small hemorrhoids on retroflexed exam. Plan:? Repeat Colonoscopy interval based on path results - in 5 years if biopsies are normal due to FH of colon polyps. BIOPSIES SHOWED: A.? Small bowel, biopsy:? Duodenal mucosa with mildly increased intraepithelial lymphocytes and preserved villous architecture.? See comment. B.? Stomach, antrum, biopsy:? Antral-type mucosa with mild chronic inactive inflammation; no Helicobacter organisms seen. C.? Colon, random right, biopsy:? Colonic mucosa within normal limits; negative for microscopic colitis. PAST GI HISTORY BY REVIEW OF MEDICAL RECORDS: 03/04/[address] FITZPATRICK:The patient is a 39 y/o female who presents for an initial telephone visit? for a celiac disease. 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 She has 1 brother? with type 1 DM. Her parents do not have celiac disease diagnoses. Her father has? esphogus issues, possible Castro's esophagus. She thinks that her mother has a? mood disorder, but she is unsure. She denies ever smoking. She drinks EtOH about? 3 times per week. She occasionally uses marijuana. She takes a multivitamin. She? states that she does not always remembers to take her calcium supplements. She? states that she has periodic vitamin D deficiencies. She reports following a? strict gluten free diet and rarely goes out to eat. She limits her dairy? intake. She reports known diagnosis of celiac disease in 2009. She was? referred to GI at [place], she does not remember the provider, who preformed? genetic testing. She did not have an EGD as her blood work was sufficient for a? celiac diagnosis. She had a normal EDG and colonoscopy around 2013 for blood in? her stool, but both were normal. She then had a bone density 5 years ago and was? found to have osteopenia. Her last bone density was worse, but she does not? think she was diagnosed with osteoporosis. She states that she saw? endocrinology, an unknown provider, in 12/2019 at [facility] but she does not have? a follow up. 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 She stopped? liothyronine on advice of the asphalt paving superintendent. Her PCP plans to repeat thyroid? blood work soon. She reports ongoing fatigue.? Fatigue was worse before her? celiac diagnosis. She had 2 deliveries, in 2014 and 2016. She? breastfed both of her children for 9 months. She also supplemented with formula.? She had an unplanned and miscarriage in 11/2019, after about 6 weeks,? and she was on control for a few month. She states periods were heavy and? long after the miscarriage. She does not plan any additional pregnancies.?She reports waking frequently to urinate at night at least twice per? night, even with trying to limit her liquid intake at night. She denies issues? falling asleep. She denies changes in her sleep pattern after having children.? She thinks that she is getting adequate sleep. She used to exercise before the? COVID-19 pandemic. Reports difficulty losing weight since her delivery. She? denies abdominal pain, diarrhea, nausea, Hx of asthma, SOB, and palpitations.? She defecates about once every 1-2 days. She took an SSRI for 3 months after her? last delivery in 2017, but stopped due to multiple side effects including? diarrhea. 1. Celiac disease - K90.0 (Primary)2. Osteopenia determined by x-ray -? M85.80Celiac panel was unremarkable in 2016. In 11/01/2019, hemoglobin was 13.2,? hematocrit was 33.2, and the rest of CBC was normal. Glucose and renal function? were normal, AST 33, ALT 64, bilirubin 0.4, and albumin 4.0.Patient seems? to have an appropriate diagnosis of celiac disorder. Within the last 5 years she? has had 2 completed pregnancies and 1 miscarriage. She did short term, up to 9? months, with the 2 children. She has not consistently taken her? supplementations, She also reports fatigue, which with no clear etiology, no Hx? of sleep apnea, BMI has been in the range of 30-32, I believe some of her? problems may be metabolic. She seems to follow a gluten free diet. Biopsies in? 2015 showed normal villi structure, which usually translates to normal? absorption depending on dietary intake. Small bowel biopsies were done at the? time of her EGD, in 2013. We [facility]. We will regroup in 6-8 weeks [facility] Medical History (Updated 09/19/24 @ 09:02 by Gregoria Salazar MD) Tonsillith Annual physical exam Bladder prolapse, female, acquired Celiac disease Osteopenia Anxiety and depression Eczema Psoriasis Surgical History (Updated 09/19/24 @ 08:28 by Kristen Martinez) Hx of vaginal surgery H/O colonoscopy History of esophagogastroduodenoscopy (EGD) Family History Father Family history of prostate problems HTN (hypertension) Mother HTN (hypertension) Maternal Grandmother Parkinsons CVD (cardiovascular disease) Maternal Uncle Colon cancer Other Mental health disorder Substance use disorder Social History Household Members: Spouse and Children 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 Housing: House Alcohol intake: current Alcohol intake frequency: holidays/special occasions only Patient Tobacco Use Status: Never used Tobacco e-Cigarette/Vaping Use: Never Used Second Hand Smoke Exposure: No service: No Current occupational status: employed 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 Cognitive needs: No Hearing needs: No Vision needs: Yes Review of Systems Const Reports fatigue, Denies fever(s), Denies headache(s) and Denies weight loss Eyes Denies eye discharge and Denies irritation ENT Reports Normal hearing present, Denies dysphagia, Denies dizziness and Denies headache(s) Card Reports chest pain, Denies leg edema, Denies dyspnea on exertion and Reports other (Palpitations) Resp Denies cough, Denies dyspnea on exertion and Denies wheezing GI Denies abdominal pain, Denies change in bowel habits, Reports constipation, Denies dysphagia, Reports early satiety and Reports heartburn Denies difficulty voiding, Denies dysuria and Reports other (LMP 09/05 to 09/08/24) Musc Denies back pain and Reports arthralgias Skin/Breast Denies pruritus, Denies rash and Denies jaundice Neuro Reports Normal hearing present, Denies Abnormal speech present, Denies dizziness, Denies headache(s) and Denies seizure-like activity Psych Denies anxiety, Denies depression and Denies panic attacks Endo Denies cold intolerance, Reports fatigue, Denies flushing and Denies heat intolerance Jayden/Lymph Denies easy bleeding and Denies easy bruising Aller/Immun Denies wheezing Physical Exam Vital Signs: Last Vital Signs Pulse 93 09/19/24 08:30 BP 113/80 09/19/24 08:30 BMI result Body Mass Index 28.9 Const General: healthy appearing and no acute distress Nutritional Appearance: overweight Orientation/consciousness: patient oriented x3 Limitations: no limitations HEENT Head: Yes normal to inspection Ears: hearing grossly normal bilaterally Mouth: Normal oral and palatal mucosa present Eyes Sclerae: sclerae normal Pupils: Equal, round and reactive pupils present Neck Neck: Yes normal visual inspection Chest Chest palpation & inspection: normal inspection of the chest Resp Effort & Inspection: normal respiratory effort Auscultation: clear to auscultation bilaterally Cardio Palpation: normal PMI Rate: regular rate Rhythm: regular rhythm Heart sounds: S1 normal heart sound present, S2 normal heart sound present and no murmurs GI Palpation (GI): Soft to palpation, nontender and No hepatosplenomegaly present Auscultation: normal bowel sounds Rectal Exam - Female: deferred Skin General skin exam: no rashes or lesions noted Neuro General: patient oriented x3, gait normal and moves all extremities Cranial nerves: Yes Equal, round and reactive pupils present and Yes Normal hearing present Speech: No Abnormal speech present Psych Appearance: grossly normal Mental Status: mental status grossly normal Assessment & Plan Assessment & Plan (1) Celiac disease: Comment: In remission on gluten free diet, negative EGD and colonoscopy 04/2022, follows up with GI annually Code(s): K90.0 - Celiac disease Category: Medical (2) Gas bloat syndrome: Code(s): K92.89 - Other specified diseases of the digestive system Category: Medical (3) Family history of colonic polyps: Comment: Dad in his 40's Code(s): Z83.71 - Family history of colonic polyps Category: Medical (4) GERD (gastroesophageal reflux disease): Code(s): K21.9 - Gastro-esophageal reflux disease without esophagitis Category: Medical (5) Early satiety: Code(s): R68.81 - Early satiety Category: Medical (6) Upper abdominal pain: Code(s): R10.10 - Upper abdominal pain, unspecified Category: Medical Plan 44 YF with psoriasis diagnosed with Celiac Disease in 2009 and following a strict gluten free diet. She notes symptoms on accidental exposure to minimal amounts of gluten. She takes multiple supplements - calcium, vitamin-D, vitamin B12. Labs showed normal celiac serologies, LFTs, vitamin D and vitamin B12 levels. Patient's dad was detected to have colon polyps in his 40s.? Per patient EGD and colonoscopy in 2011 were negative. 04/2022 EGD and colonoscopy were performed and findings as noted above.? Pt was advised repeat Colon in 5 yrs due to positive FH (Due 04/2027) 09/19/24 Taking Omeprazole 20 mg daily and Mylanta prn for heartburn. Noted an episode of severe upper abd pain (without radiation) after drinking [place] water Schedule abd US to rule out cholelithiasis. Patient advised to discuss pneumococcal vaccination with PCP during her follow-up visit - message sent to Dr Trini RAMSEY in 4 months - scheduled 01/09/25. MANAGEMENT OF CELIAC DISEASE (FROM UPTODATE): Repletion of nutritional deficiencies???Patients should be tested for deficiency of vitamins (A, D, E, B12), copper, zinc, carotene,?folic acid, ferritin, iro?, and prothrombin time (PT) measured for potential vitamin K deficiency. Deficiency in thiamine, vitamin B6, magnesium, and?selenium may also occur depending on the disease severity and dietary intake and should be tested for in the presence of clinical signs or symptoms of a deficiency. A gluten-free diet may induce troublesome constipation since it is low in roughage. This usually responds to fiber supplementation with?psyllium?seed husks. Medication absorption???There may be incomplete absorption of medication in untreated, partially treated, or refractory celiac disease. This is important for females of childbearing age who take oral contraceptive pills, where there may be incomplete absorption of the medication such that they should be advised to use alternative contraception. Prevention of bone loss???Bone loss is common in celiac disease, and can occur in patients without gastrointestinal symptoms Much of the bone loss is related to secondary hyperparathyroidism which is probably due to vitamin D deficiency. Patients with advanced disease may have bone pain, pseudofractures, or deformity, but the majority of patients are asymptomatic or have only raised serum levels of alkaline phosphatase or hypocalcemia. It can only be partially reversed with a gluten-free diet; loss of bone density in the peripheral skeleton may persist despite apparent normalization at axial skeletal sites Patients diagnosed with celiac disease should be evaluated for bone loss using a DXA (dual energy x-ray absorptiometry) scan. Monitoring by repeat DXA scan after one year is useful in patients with osteopenia since it permits estimation of the rate of change of bone mineral density Pneumococcal vaccination???Celiac disease is associated with hyposplenism. Therefore, prophylactic administration of pneumococcal vaccine is recommended Orders: Orders US abdomen complete Today R10.10 - Upper abdominal pain, unspecified Medications: New famotidine 40 mg PO BEDTIME 30 days 30 tabs 3RF K21.9 - Gastro-esophageal reflux disease without esophagitis Coding Level of Care Code Est Pt Level 4 (06903) Diagnoses Celiac disease K90.0 Gas bloat syndrome K92.89 Family history of colonic polyps Z83.71 GERD (gastroesophageal reflux disease) K21.9 Early satiety R68.81 Upper abdominal pain R10.10 Time Spent (min) 25
[2024-09-19 08:30] VITALS: BP 113/80; PULSE 93; BMI 28.9
--- OUTSIDE RECORDS SUMMARY | 2024-09-19 08:30 | XMS_ITS ---
Author Organization [facility] Address [address] [place] [id number] Care Team Providers Care Sugar Cane Grower Name Role Phone Sharon Feliz MD Primary Care Provider Kait Ovalle Unavailable [phone] Allergies Allergen (clinical drug ingredient) Drug/Non Drug [...] (telehealth) Encounters Encounter Location Date Provider Diagnosis [address] [id number] 08/07/2024 Kait Jimenez Hypothyroidism, unspecified E03.9 ; [...] Reason: Provider Name:Kait Jimenez, 08/05/2025 09:30:00 AM, [address] [place] [address], [id number], Progress Notes * Adeline PEREZ EDOB:[birth year] (44 yo F)Acc No.[id number]:08/07/2024 Patient:?Adeline PEREZ Provider:?Kait Jimenez :1980???Age:44 Y???Sex:Female D ate:08/07/2024 Address:[address] [place] [id number] Pcp:Sharon Feliz MD Subjective: * Chief Complaints: * ???1. LDN F/U. * HPI: ???HPI:? Patient identified. Patient location: [place] location in private place to have discussion Provider location: [place]____ License number provided. Disclosure of telehealth [...] D deficiency, Bladder prolapse, anxiety/depression, Hypothyroidism-borderline. * Rn Clinician History:?Periods :?24 days.?Sexual activity?currently sexually active.?Last pap [...] # 3?normal spontaneous vaginal delivery (), 2018 [place] no complications.? # 4:?spontaneous , 11/2019.? * [...] Patient to trial higher doses and call [facility] with dose that agrees with patient.? Follow up in 1 year for LDN, call with any sensitivity, worrisome side effects or questions. Plan: * Treatment: * Preventive Medicine:?-Continue current dose of LDN at bedtime [facility] [address], [place] Tele: [phone] -Do not take opioids* while taking low [...] Provider:Aj Jimenez Date:?08/07/2024 Generated for Miguel vasquez/Eden/Kimmie on:?09/19/2024 08:30 AM EST History and Physical Notes * HPI (History of Present Illness) Category Sub-Category Detail Notes Category Not es HPI Patient identified. Patient location: [place] location in private place to have discussion Provider location: [facility]____ License number provided. Disclosure of telehealth limitations. [...]
--- OUTSIDE RECORDS SUMMARY | 2024-09-19 08:30 | XMS_ITS ---
Author Organization [facility] Address [address] [place] [phone] Care Team Providers Care Loom Changeover Operator Name Role Phone Sharon Feliz MD Primary Care Provider Unavaila Kait Santana Unavailable [phone] REASON FOR VISIT labs? 08/07 appt Encounters Encounter Location Date Provider Diagnosis [address] [id number] 07/24/2024 Kait Jimenez Plan Of Treatment Next Appt Details Provider Name:Kait Jimenez, 08/05/2025 09:30:00 AM, [address] [place] [address], [id number], Progress Notes * Adeline PEREZ EDOB:[birth year] (44 yo F)Acc No.[id number]:07/24/2024 Patient:?Adeline PEREZ :1980???Age:44 Y???Sex:Female Address:[address] [place] [address], [phone] * true * Date:? Generated for Printi ng/Faxing/eTransmitting on:?09/19/2024 08:30 AM EST
--- OUTSIDE RECORDS SUMMARY | 2024-09-19 08:30 | XMS_ITS | Patient Health Record ---
Author Organization [facility] Address [address], [place] [phone] Care Team Providers Care Carpet Cleaning Technician Name Role Phone Sharon Feliz MD Primary Care Provider Kait Ovalle Unavailable [phone] Allergies Allergen (clinical drug ingredient) Drug/Non Drug [...] W/U Status Risk Notes Problem Celiac disease (545421445) Celiac disease (579.0) Active confirmed (Abner) Problem Psoriasis (0304257) Other psoriasis (696.1) Active confirmed (Abner) Problem Acne (26222166) Other acne (706.1) Active confirmed (Abner) Problem Hypothyroidism (66653221) Hypothyroidism, unspecified (E03.9) Active confirmed Problem Chronic frontal sinusitis (11030820) Chronic frontal sinusitis (J32.1) Active confirmed Problem Constipation (77169924) Constipation, unspecified (K59.00) Active confirmed 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 Problem Excessive and frequent menstruation (410093695) Excessive and frequent menstruation with regular cycle (N92.0) Active confirmed Problem Intermenstrual bleeding - irregular (04816303) Excessive and frequent menstruation with irregular cycle (N92.1) Active confirmed Problem Body mass index 30.00 to 34.99 (309404774975192) Body mass index (BMI) 32.0-32.9, adult (Z68.32) Active confirmed Vital Signs Height 68 in 08/07/2024 unable to obtai n other vitals (telehealth) Encounters Encounter Location Date Provider Diagnosis [address] [id number] 08/07/2024 Kait Jimenez Hypothyroidism, unspecified E03.9 ; 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 ; Pain in right knee M25.561 and Pain in left knee M25.[address] [id number] 12/13/2023 Kait Jimenez [address] [id number] 07/24/2024 Kait Jimenez [address] [id number] 08/07/2024 Kait Jimenez Assessments Encounter Date Diagnosis [...] Details Provider Name:Kait Jimenez, 08/05/2025 09:30:00 AM, [address] [place] [address], [id number], Insurance Providers Payer Name Payer Address Payer Phone Subscriber Number Group Number Insured Name Patient Relationship to Insured Coverage Start Date Coverage End Date [facility] [address] [place], [place] [id number] Adeline Laura Self - patient is the insured Medical (General) History Medical History History ICD Code celiac osteopenia psoriasis Vitamin B12 deficiency Vitamin D deficiency bladder prolapse anxiety/depression Hypothyroidism-borderline Surgical History Surgery Date(Month/Year) colonoscopy 2012, 2022 endoscopy 2012 DEXA scan 2013, 2018 Hospitalization History Reason Date(Month/Year) Childbirth only
--- OUTSIDE RECORDS SUMMARY | 2024-09-19 08:30 | XMS_ITS ---
Author Organization [facility] Address [address] [place] [phone] Care Team Providers Care Hearing Aid Fitter Name Role Phone Sharon Feliz MD Primary Care Provider Unavaila Kait Santana Unavailable [phone] REASON FOR VISIT ldn f/u #W Encounters Encounter Location Date Provider Diagnosis [address] [id number] 08/07/2024 Kait Jimenez Plan Of Treatment Next Appt Details Provider Name:Kait Jimenez, 08/05/2025 09:30:00 AM, [address] [place] [address], [id number], Progress Notes * Adeline PEREZ EDOB:[birth year] (44 yo F)Acc No.[id number]:08/07/2024 Patient:?Adeline PEREZ :1980???Age:44 Y???Sex:Female Address:[address] [place] [address], [phone] * true * Date:? Generated for Printi ng/Faxing/eTransmitting on:?09/19/2024 08:29 AM EST
== END 2024-09-19 09:12 | disposition home or self-care (01) ==
PROVIDERS: PCP Internal Medicine; Visit Provider Internal Medicine Gastroenterology
DX: K90.0 Celiac disease (principal); K92.89 Other specified diseases of the digestive system; Z83.719 Family history of colon polyps, unspecified; K21.9 Gastro-esophageal reflux disease without esophagitis; R68.81 Early satiety
CPT/HCPCS: 99214

== ENCOUNTER 2024-10-11 08:44 | Outpatient (REF) | payer BC, SELFPAY ==
--- NOTE | ~2024-10-11 | US_ITS ---
CLINICAL HISTORY: R10.10 - Upper abdominal pain, unspecified US abdomen complete Comparison: None Findings: Gallbladder unremarkable, no stone formation or wall thickening. Common duct measures 2.9 mm. No sonographic Garcia sign. Liver is homogeneous and normal in size and echogenicity. Main portal vein patent with normal direction of flow. Pancreas is unremarkable. Aorta and IVC patent and normal in caliber. The right kidney is normal, 10.7 cm in length. Question 3 mm nonobstructing midpole stone. No other focal abnormality or hydronephrosis. The left kidney is normal, 10.2 cm in length. No focal abnormality or hydronephrosis. The spleen is normal, 10.2 cm in length. No focal abnormality. Impression: Question 3 mm nonobstructing right renal stone Otherwise unremarkable This document has been electronically signed by: Aba Kramer MD on 10/11/2024 19:51:07
--- OUTSIDE RECORDS SUMMARY | 2024-10-11 08:47 | XMS_ITS ---
Author Organization [facility] Address [address] [place] [phone] Care Team Providers Care Agriculture Research Director Name Role Phone Sharon Feliz MD Primary Care Provider Unavaila Kait Santana Unavailable [phone] REASON FOR VISIT ldn f/u #W Encounters Encounter Location Date Provider Diagnosis [address] [id number] 08/07/2024 Kait Jimenez Plan Of Treatment Next Appt Details Provider Name:Kait Jimenez, 08/05/2025 09:30:00 AM, [address] [place] [address], [phone], Progress Notes * Adeline PEREZ EDOB:[birth year] (44 yo F)Acc No.[id number]:08/07/2024 Patient:?Adeline PEREZ :1980???Age:44 Y???Sex:Female Address:[address] [place] [address], [phone] * true * Date:? Generated for Printi ng/Fapolinag/eTransmitting on:?10/11/2024 08:47 AM EST
--- OUTSIDE RECORDS SUMMARY | 2024-10-11 08:48 | XMS_ITS | Continuity of Care Document ---
Author Organization [facility] Address [address] [place] [phone] Care Team Providers Care Binder Sorter Name Role Phone Sharon Feliz MD Primary [id number] Date(s): 09/06/24 - 10/09/[address] [id number] Attending Physician: Sharon Feliz MD Admitting Physician: Sharon Feliz MD Referring Physician: Sharon Feliz MD Encounter Type: Pre-Outpt Allergies, Adverse Reactions, Alerts Substance Criticality Severity [...] Refills, Maintenance, 09/06/21 5:08:00 PM EST, Gel, [facility]/pharmacy #[id number], Partial fill upon patient request if [...] 2:58:00 PM EDT, Route to Pharmacy Electronically, [facility]/pharmacy #[id number], Partial fill upon patientrequest if the prescription is for a schedule II opioid drug., 172.72, cm, 01/30/24 11:21:00 EDT, Height, 88.64, kg, 01/30/24 11:21:00 EDT, Dry Weight Start Date: 02/01/24 Status: Ordered Quantity: 30.0 Unit: tablet Repeat number: 1 Liletta 52 mg intrauterine device 1 each = 52 mg, Intrauterine, Once, Please ship to [address] [place] [address] [facility] Insertion 04/25, # 1 each, 0 Refills, Soft Stop, 03/16/23 7:31:00 AM EDT, [facility], Partial fillupon patient request [...] 1 Refills, Maintenance, 06/20/24 12:07:00 PM EDT, [facility]/pharmacy #[id number], Partial fill upon patient request if [...] 0, Tot. Refills 0, Maintenance, for pain, 5/2/24 2:58:00 PM EDT, Route to Pharmacy Electronically, [facility]/pharmacy #[id number], Partial fill upon patient request if [...] 2:58:00 PM EDT, Route to Pharmacy Electronically, [facility]/pharmacy #[id number], Partial fill upon patient request if [...] List Condition Confirmation Course Effective Dates Status Health St atus Informant Celiac sprue Confirmed Active Cystocele with prolapse Confirmed Active Depression Confirmed Active Fibroid Confirmed Active Osteopenia Confirmed Active Adenomyosis Confirmed Active Social History Social History Type Response Smoking Status Never smoker entered on: 11/01/16 Sex Sex Representation Female (finding) Patient Care team information Care Team Personnel Name: Sharon Feliz MD Position: S Physician - Primary Care Member Role: PCP Address: [address] [place] [address] Telecom: Care Team Related Persons Name: MARISSA WRAY Name: RONALD PEREZ Insurance Providers Guarantor name: ELSA PEREZ Health Plan Information #: 1 Payer: [employer] Member Number: [id number] Policy Number: NA Group Number: [id number] Health Plan Information #: 2 Payer: [employer] Member Number: [id number] Policy Number: NA Group Number: [id number]
--- OUTSIDE RECORDS SUMMARY | 2024-10-11 08:48 | XMS_ITS ---
Author Organization [facility] Address [address] [place] [phone] Care Team Providers Care Child Development Instructor Name Role Phone Sharon Feliz MD Primary Care Provider Kait Ovalle Unavailable [phone] Allergies Allergen (clinical drug ingredient) Drug/Non Drug [...] (telehealth) Encounters Encounter Location Date Provider Diagnosis [address] [id number] 08/07/2024 Kait Jimenez Hypothyroidism, unspecified E03.9 ; [...] Reason: Provider Name:Kait Jimenez, 08/05/2025 09:30:00 AM, [address] [place] [address], [phone], Progress Notes * Adeline PEREZ EDOB:[birth year] (44 yo F)Acc No.[id number]:08/07/2024 Patient:?Adeline PEREZ Provider:?Kait Jimenez :1980???Age:44 Y???Sex:Female D ate:08/07/2024 Address:[address] [place] [id number] Pcp:Sharon Feliz MD Subjective: * Chief Complaints: * ???1. LDN F/U. * HPI: ???HPI:? Patient identified. Patient location: [place] location in private place to have discussion Provider location: [facility]____ License number provided. Disclosure of telehealth [...] D deficiency, Bladder prolapse, anxiety/depression, Hypothyroidism-borderline. * Airport Operations Officer History:?Periods :?24 days.?Sexual activity?currently sexually active.?Last pap [...] # 3?normal spontaneous vaginal delivery (), 2018 [place] no complications.? # 4:?spontaneous , 11/2019.? * [...] Patient to trial higher doses and call [place] with dose that agrees with patient.? Follow up in 1 year for LDN, call with any sensitivity, worrisome side effects or questions. Plan: * Treatment: * Preventive Medicine:?-Continue current dose of LDN at bedtime [facility] [address] [facility] [address], [place] Tele: [phone] -Do not take opioids* while taking low [...] Provider:Aj Jimenez Date:?08/07/2024 Generated for Miguel vasquez/Eden/Kimmie on:?10/11/2024 08:47 AM EST History and Physical Notes * HPI (History of Present Illness) Category Sub-Category Detail Notes Category Not es HPI Patient identified. Patient location: [place] location in private place to have discussion Provider location: [facility]____ License number provided. Disclosure of telehealth [...]
--- OUTSIDE RECORDS SUMMARY | 2024-10-11 08:48 | XMS_ITS ---
Author Organization [facility] Address [address] [place] [id number] Care Team Providers Care Urologic Nurse Name Role Phone Sharon Feliz MD Primary Care Provider Unavaila Kait Santana Unavailable [phone] REASON FOR VISIT labs? 08/07 appt Encounters Encounter Location Date Provider Diagnosis [address] [id number] 07/24/2024 Kait Jimenez Plan Of Treatment Next Appt Details Provider Name:Kait Jimenez, 08/05/2025 09:30:00 AM, [address] [place] [address], [phone], Progress Notes * Adeline PEREZ EDOB:[birth year] (44 yo F)Acc No.[id number]:07/24/2024 Patient:?Adeline PEREZ :1980???Age:44 Y???Sex:Female Address:[address] [place] [address], [phone] * true * Date:? Generated for Printi ng/Faxing/eTransmitting on:?10/11/2024 08:47 AM EST
--- OUTSIDE RECORDS SUMMARY | 2024-10-11 08:48 | XMS_ITS | Patient Health Record ---
Author Organization [facility] Address [address] [place], [place] [phone] Care Team Providers Care Senior Controls Analyst Name Role Phone Sharon Feliz MD Primary Care Provider Kait Ovalle Unavailable [phone] Allergies Allergen (clinical drug ingredient) Drug/Non Drug [...] W/U Status Risk Notes Problem Celiac disease (616972858) Celiac disease (579.0) Active confirmed (Abner) Problem Psoriasis (5360671) Other psoriasis (696.1) Active confirmed (Abner) Problem Acne (97310232) Other acne (706.1) Active confirmed (Abner) Problem Hypothyroidism (69022521) Hypothyroidism, unspecified (E03.9) Active confirmed Problem Chronic frontal sinusitis (16119618) Chronic frontal sinusitis (J32.1) Active confirmed Problem Constipation (96761628) Constipation, unspecified (K59.00) Active confirmed 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 Problem Excessive and frequent menstruation (003075854) Excessive and frequent menstruation with regular cycle (N92.0) Active confirmed Problem Intermenstrual bleeding - irregular (13266594) Excessive and frequent menstruation with irregular cycle (N92.1) Active confirmed Problem Body mass index 30.00 to 34.99 (621739835448754) Body mass index (BMI) 32.0-32.9, adult (Z68.32) Active confirmed Vital Signs Height 68 in 08/07/2024 unable to obtai n other vitals (telehealth) Encounters Encounter Location Date Provider Diagnosis [address] [id number] 08/07/2024 Kait Jimenez Hypothyroidism, unspecified E03.9 ; 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 ; Pain in right knee M25.561 and Pain in left knee M25.[address] [id number] 12/13/2023 Kait Jimenez [address] [id number] 07/24/2024 Kait Jimenez [address] [id number] 08/07/2024 Kait Jimenez Assessments Encounter Date Diagnosis [...] Details Provider Name:Kait Jimenez, 08/05/2025 09:30:00 AM, [address] [place] [address], [id number], Insurance Providers Payer Name Payer Address Payer Phone Subscriber Number Group Number Insured Name Patient Relationship to Insured Coverage Start Date Coverage End Date [facility] [address] [place], [place] [id number] Adeline Laura Self - patient is the insured Medical (General) History Medical History History ICD Code celiac osteopenia psoriasis Vitamin B12 deficiency Vitamin D deficiency bladder prolapse anxiety/depression Hypothyroidism-borderline Surgical History Surgery Date(Month/Year) colonoscopy 2012, 2022 endoscopy 2012 DEXA scan 2013, 2018 Hospitalization History Reason Date(Month/Year) Childbirth only
== END 2024-10-11 08:45 | disposition home or self-care (01) ==
LOC: HO.US 08:44
PROVIDERS: PCP Internal Medicine; Visit Provider Internal Medicine Gastroenterology
DX: R10.10 Upper abdominal pain, unspecified (principal)
CPT/HCPCS: 76700

== ENCOUNTER → 2024-10-11 08:47 | Outpatient (BNV) | payer BC, SELFPAY | PROVIDERS: PCP Internal Medicine; Visit Provider Radiology Diagnostic Radiology | DX: N20.0 Calculus of kidney (principal) | CPT/HCPCS: 76700 ==

== ENCOUNTER 2025-01-09 07:30 | Outpatient (AMB) | payer BC, SELFPAY ==
--- OUTSIDE RECORDS SUMMARY | 2025-01-09 07:33 | XMS_ITS ---
Author Organization [facility] Address [address] [place] [phone] Care Team Providers Care Nonprofit Manager Name Role Phone Sharon Feliz MD Primary Care Provider Unavaila Kait Santana Unavailable [phone] REASON FOR VISIT ldn f/u #W Encounters Encounter Location Date Provider Diagnosis [address] [id number] 08/07/2024 Kait Jimenez Plan Of Treatment Next Appt Details Provider Name:Kait Jimenez, 08/05/2025 09:30:00 AM, [address] [place] [address], [phone], Progress Notes * Adeline PEREZ EDOB:[birth year] (44 yo F)Acc No.[id number]:08/07/2024 Patient:?Adeline PEREZ :1980???Age:44 Y???Sex:Female Address:[address] [place] [address], [phone] * true * Date:? Generated for Printi ng/Faxing/eTransmitting on:?01/09/2025 07:33 AM EDT
--- OUTSIDE RECORDS SUMMARY | 2025-01-09 07:33 | XMS_ITS ---
Author Organization [facility] Address [address] [place] [phone] Care Team Providers Care Agricultural Labor Camp Manager Name Role Phone Sharon Feliz MD Primary Care Provider Unavaila Kait Santana Unavailable [phone] REASON FOR VISIT 1mg LDN Encounters Encounter Location Date Provider Diagnosis [address] [id number] 11/11/2024 Kait Jimenez Plan Of Treatment Next Appt Details Provider Name:Kait Jimenez, 08/05/2025 09:30:00 AM, [address] [place] [address], [phone], Progress Notes * Adeline PEREZ EDOB:[birth year] (44 yo F)Acc No.[id number]:11/11/2024 Patient:?Adeline PEREZ :1980???Age:44 Y???Sex:Female Address:[address] [place] [address] [place], [phone] * true * Date:? Generated for Printi ng/Faxing/eTransmitting on:?01/09/2025 07:33 AM EDT
--- OUTSIDE RECORDS SUMMARY | 2025-01-09 07:33 | XMS_ITS | Patient Health Record ---
Author Organization [facility] Address [address] [place], [place] [phone] Care Team Providers Care Bush Hog Operator Name Role Phone Sharon Feliz MD Primary Care Provider Kait Ovalle Unavailable [phone] Allergies Allergen (clinical drug ingredient) Drug/Non Drug [...] W/U Status Risk Notes Problem Celiac disease (284025913) Celiac disease (579.0) Active confirmed (Abner) Problem Psoriasis (8229370) Other psoriasis (696.1) Active confirmed (Abner) Problem Acne (49567462) Other acne (706.1) Active confirmed (Abner) Problem Hypothyroidism (99692684) Hypothyroidism, unspecified (E03.9) Active confirmed Problem Chronic frontal sinusitis (20466794) Chronic frontal sinusitis (J32.1) Active confirmed Problem Constipation (97800719) Constipation, unspecified (K59.00) Active confirmed Problem Guttate psoriasis (82676235) 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 Problem Excessive and frequent menstruation (214004980) Excessive and frequent menstruation with regular cycle (N92.0) Active confirmed Problem Intermenstrual bleeding - irregular (70635339) Excessive and frequent menstruation with irregular cycle (N92.1) Active confirmed Problem Body mass index 30.00 to 34.99 (649740528355572) Body mass index (BMI) 32.0-32.9, adult (Z68.32) Active confirmed Vital Signs Height 68 in 08/07/2024 unable to obtai n other vitals (telehealth) Encounters Encounter Location Date Provider Diagnosis [address] [id number] 08/07/2024 Kait Jimenez Hypothyroidism, unspecified E03.9 ; 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 ; Pain in right knee M25.561 and Pain in left knee M25.[address] [id number] 07/24/2024 Kait Jimenez [address] [id number] 08/07/2024 Kait Jimenez [address] [id number] 10/15/2024 Kait Jimenez [address] [id number] 11/11/2024 Kait Jimenez Assessments Encounter Date Diagnosis (ICD [...] with 0.5mg capsules for titration. Rx to [facility] for LowDoseNaltrexone 0.25mg caps. Patient to [...] with 0.5mg capsules for titration. Rx to [facility] pharmacy for LowDoseNaltrexone 0.25mg caps. Patient to [...] Details Provider Name:Kait Jimenez, 08/05/2025 09:30:00 AM, [address] [facility], [place], [place], [phone], Insurance Providers Payer Name Payer Address Payer Phone Subscriber Number Group Number Insured Name Patient Relationship to Insured Coverage Start Date Coverage End Date [facility] [address] [place], [place] [phone] [id number] Adeline Laura Self - patient is the insured Medical (General) History Medical History History ICD Code celiac osteopenia psoriasis Vitamin B12 deficiency Vitamin D deficiency bladder prolapse anxiety/depression Hypothyroidism-borderline Surgical History Surgery Date(Month/Year) colonoscopy 2022 endoscopy 2012 DEXA scan 2013, 2018 Hospitalization History Reason Date(Month/Year) Childbirth only
--- OUTSIDE RECORDS SUMMARY | 2025-01-09 07:33 | XMS_ITS ---
Author Organization [facility] Address [address] [place] [phone] Care Team Providers Care Center Medical Specialist Name Role Phone Sharon Feliz MD Primary Care Provider Unavaila Kait Santana Unavailable [phone] REASON FOR VISIT LDN dose #T Encounters Encounter Location Date Provider Diagnosis [address] [id number] 10/15/2024 Kait Jimenez Plan Of Treatment Next Appt Details Provider Name:Kait Jimenez, 08/05/2025 09:30:00 AM, [address] [place] [address], [phone], Progress Notes * Adeline PEREZ EDOB:[birth year] (44 yo F)Acc No.[id number]:10/15/2024 Patient:?Adeline PEREZ :1980???Age:44 Y???Sex:Female Address:[address] [place] [address], [phone] * true * Date:? Generated for Printi ng/Faxing/eTransmitting on:?01/09/2025 07:33 AM EDT
--- NOTE | 2025-01-09 07:42 | A.OFFVIS_ITS ---
Vital Signs 01/09/25 07:45 Height 5 ft 8 in Weight 188 lb BMI 28.6 BP 120/68 Blood Pressure Location Lt brachial Position Sitting Pulse 97 Pulse Oximetry (%) 97 Oxygen Delivery Method Room Air Intake Visit Reasons: 4 month f/u FU of GERD and celiac disease Intake Note: Patient follow up Celiac disease, GERD and US result. Patient cc: acid reflux with burning sensation in the morning. 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 Accompanied by: Self / Same As Patient Allergies Gluten Allergy (Severe, Uncoded 04/02/24 08:39) Abdominal pain, bloating Dust and Mold Allergy (Mild, Uncoded 04/02/24 08:39) Congestion, sore ears Medication List - Last Reconciled 01/09/25 by Gregoria Salazar MD bupropion HCl XL 300 mg PO QAM clobetasol 0.05% mL topical dextroamphetamine-amphetamine 10 mg ER 1 cap PO QAM famotidine 40 mg PO BEDTIME hyoscyamine sulfate (Levsin/SL) 0.125 mg sublingual BID-QID PRN 30 days miscellaneous medical supply 1 ea miscellaneous .QD omeprazole 20 mg PO DAILY 30 days HPI HPI 4 month f/u FU of GERD and celiac disease: Details: GI clinic visit for this 44 YF with psoriasis, osteopenia followed in GI for GERD and celiac disease. Patient has been followed by Dr. Fitzpatrick since March 2020. TODAY'S VISIT: Patient cc: acid reflux with burning sensation in the morning. US results reviewed. 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 Also ate later than usual last night. Usually symptoms are well controlled. Denies dysphagia. PAST VISITS: Started having heartburn before Thanks - had a sensation of food getting stuck. Intermittent early satiety. Started taking Omeprazole and stopped drinking [place] water which has helped. Has to take liquid Mylanta a few times a week despite taking Omeprazole Tried making dietary changes. Noted an episode of severe upper abd pain (without radiation) after drinking [place] water Denies changes in wt Lab results reviewed with the patient. Continues to feel a little tired (chronic issue)- Wonders if it is related to ADHD Tried low dose Aderrall and felt better Takes Magnesium every night for contstipation and has a BM daily. Taking low dose Nalteroxone ? for autoimmune disease Noted jt pains in the hands over the summer and felt better with above Had foot and mouth disease after 8 yr old son and 5 yr old daughter caught it from school - now recovered Dad has Castro's esophagus and colon polyps and has a colonoscopy every 5 yrs Brother has GERD. Paternal GM had esophageal issues followed by esophageal ca Maternal GM had hiatal hernia Maternal uncle had colon cancer in his 50's She was feeling a little tired and has been taking a MVI daily. Takes liquid B12 and vitamin D less frequently Takes Citracal every morning. If gets gluten accidently she has abd cramping relieved by Levsin S/L If she is exposed to a lot of gluten, she can have vomiting and no cramping. Intermittent constipation and takes a magnesium pill in the evening which is helpful. (Has TMJ and grinds her teeth at night and Magnesium helps with this) EGD and Colon results reviewed with the patient. Noted abdominal pain after the procedures lasting for a day Had COVID infection 03/10/22 with GI symptoms. Diagnosed with Celiac disease in 2009 by lab tests. Follows a strict GFD.? Notes symptoms even with minimal exposure. (she thinks she was accidently exposed to gluten a few days ago - noted abdominal cramps and bloating)Had an EGD and Colonoscopy in 2011 for diarrhea and rectal bleeding - normal per patient. Pt has been unable to get records (? have been shredded) Patient denies symptoms of heartburn, dysphagia, nausea, vomiting, change in appetite. Intentional wt loss. Takes Citracal and takes Magnesium daily for constipation and has a BM daily. Denies recent change in bowel habits, diarrhea, black stools or rectal bleeding. Patient denies major cardiac or pulmonary problems, loud snoring or sleep apnea Denies problems with anesthesia in the past. Denies being on chronic anticoagulation - takes Ibuprofen prn for MUÑOZ and menstrual cramps. Takes 3 glasses of wine a week and denies smoking. 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 Two children - son 6 yrs, daughter 3 yrs. Patient denies known family history of celiac disease, colon polyps, colon cancer or other GI malignancies. No one wants to get tested.? Daughter has one of the Genes for celiac and no symptoms. Dad has colon polyps at age 40 yrs. PAST EGD/COLONOSCOPY:? Had an EGD and Colonoscopy in 2011 for diarrhea and rectal bleeding - normal per patient. Pt has been unable to get records (? have been shredded) [facility]? Reviewed IMAGING STUDIES:? 10/19/21 bone density study: 1. DIAGNOSIS: Based on the lowest Z-score value of -1.7 in the lumbarspine, the patient's bone density is within the expected range for age. ENDOSCOPIC STUDIES:? 04/25/22 EGD AND COLONOSCOPY SHOWED: Endoscopy Findings: STOMACH: Mild gastric erythema with a few 1 cms chronic appearing antral erosions. DUODENUM: Normal - biopsies were obtained from 3rd part of the duodenum to follow up on celiac sprue Colonoscopy Findings: No polyps were detected. Random biopsies were obtained from the right colon to check for microscopic colitis Moderate diverticulosis seen in the sigmoid colon Small hemorrhoids on retroflexed exam. Plan:? Repeat Colonoscopy interval based on path results - in 5 years if biopsies are normal due to FH of colon polyps. BIOPSIES SHOWED: A.? Small bowel, biopsy:? Duodenal mucosa with mildly increased intraepithelial lymphocytes and preserved villous architecture.? See comment. B.? Stomach, antrum, biopsy:? Antral-type mucosa with mild chronic inactive inflammation; no Helicobacter organisms seen. C.? Colon, random right, biopsy:? Colonic mucosa within normal limits; negative for microscopic colitis. PAST GI HISTORY BY REVIEW OF MEDICAL RECORDS: 03/04/[address] FITZPATRICK:The patient is a 39 y/o female who presents for an initial telephone visit? for a celiac disease. 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 She has 1 brother? with type 1 DM. Her parents do not have celiac disease diagnoses. Her father has? esphogus issues, possible Castro's esophagus. She thinks that her mother has a? mood disorder, but she is unsure. She denies ever smoking. She drinks EtOH about? 3 times per week. She occasionally uses marijuana. She takes a multivitamin. She? states that she does not always remembers to take her calcium supplements. She? states that she has periodic vitamin D deficiencies. She reports following a? strict gluten free diet and rarely goes out to eat. She limits her dairy? intake. She reports known diagnosis of celiac disease in 2009. She was? referred to GI at [place], she does not remember the provider, who preformed? genetic testing. She did not have an EGD as her blood work was sufficient for a? celiac diagnosis. She had a normal EDG and colonoscopy around 2013 for blood in? her stool, but both were normal. She then had a bone density 5 years ago and was? found to have osteopenia. Her last bone density was worse, but she does not? think she was diagnosed with osteoporosis. She states that she saw? endocrinology, an unknown provider, in 12/2019 at [facility] but she does not have? a follow up. She had blood work done with the director of math. She stopped? liothyronine on advice of the director of math. Her PCP plans to repeat thyroid? blood work soon. She reports ongoing fatigue.? Fatigue was worse before her? celiac diagnosis. She had 2 deliveries, in 2014 and 2016. She? breastfed both of her children for 9 months. She also supplemented with formula.? She had an unplanned and miscarriage in 11/2019, after about 6 weeks,? and she was on control for a few month. She states periods were heavy and? long after the miscarriage. She does not plan any additional pregnancies.?She reports waking frequently to urinate at night at least twice per? night, even with trying to limit her liquid intake at night. She denies issues? falling asleep. She denies changes in her sleep pattern after having children.? She thinks that she is getting adequate sleep. She used to exercise before the? COVID-19 pandemic. Reports difficulty losing weight since her delivery. She? denies abdominal pain, diarrhea, nausea, Hx of asthma, SOB, and palpitations.? She defecates about once every 1-2 days. She took an SSRI for 3 months after her? last delivery in 2018, but stopped due to multiple side effects including? diarrhea. 1. Celiac disease - K90.0 (Primary)2. Osteopenia determined by x-ray -? M85.80Celiac panel was unremarkable in 2017. In 11/01/2019, hemoglobin was 13.2,? hematocrit was 33.2, and the rest of CBC was normal. Glucose and renal function? were normal, AST 33, ALT 64, bilirubin 0.4, and albumin 4.0.Patient seems? to have an appropriate diagnosis of celiac disorder. Within the last 5 years she? has had 2 completed pregnancies and 1 miscarriage. She did short term, up to 9? months, with the 2 children. She has not consistently taken her? supplementations, She also reports fatigue, which with no clear etiology, no Hx? of sleep apnea, BMI has been in the range of 30-32, I believe some of her? problems may be metabolic. She seems to follow a gluten free diet. Biopsies in? 2015 showed normal villi structure, which usually translates to normal? absorption depending on dietary intake. Small bowel biopsies were done at the? time of her EGD, in 2013. [facility]. [facility] will [facility]group in 6-8 weeks [facility], [facility] Medical History (Updated 09/19/24 @ 09:02 by Gregoria Salazar MD) Tonsillith Annual physical exam Bladder prolapse, female, acquired Celiac disease Osteopenia Anxiety and depression Eczema Psoriasis Surgical History Hx of vaginal surgery H/O colonoscopy History of esophagogastroduodenoscopy (EGD) Family History Father Family history of prostate problems HTN (hypertension) Mother HTN (hypertension) Maternal Grandmother Parkinsons CVD (cardiovascular disease) Maternal Uncle Colon cancer Other Mental health disorder Substance use disorder Social History Household Members: Spouse and Children 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 Housing: House Alcohol intake: current Alcohol intake frequency: holidays/special occasions only Patient Tobacco Use Status: Never used Tobacco e-Cigarette/Vaping Use: Never Used Second Hand Smoke Exposure: No service: No Current occupational status: employed 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 Cognitive needs: No Hearing needs: No Vision needs: Yes Review of Systems Const Reports fatigue, Denies fever(s), Denies headache(s) and Denies weight loss Eyes Denies eye discharge and Denies irritation ENT Reports Normal hearing present, Denies dysphagia, Denies dizziness and Denies headache(s) Card Reports chest pain, Denies leg edema, Denies dyspnea on exertion and Reports other (Palpitations) Resp Denies cough, Denies dyspnea on exertion and Denies wheezing GI Denies abdominal pain, Denies change in bowel habits, Reports constipation, Denies dysphagia, Reports early satiety and Reports heartburn Denies difficulty voiding, Denies dysuria and Reports other (LMP 12/5 to 09/08/24) Musc Denies back pain and Reports arthralgias Skin/Breast Denies pruritus, Denies rash and Denies jaundice Neuro Reports Normal hearing present, Denies Abnormal speech present, Denies dizziness, Denies headache(s) and Denies seizure-like activity Psych Denies anxiety, Denies depression and Denies panic attacks Endo Denies cold intolerance, Reports fatigue, Denies flushing and Denies heat intolerance Jayden/Lymph Denies easy bleeding and Denies easy bruising Aller/Immun Denies wheezing Physical Exam Vital Signs: Last Vital Signs Pulse 97 01/09/25 07:45 BP 120/68 01/09/25 07:45 Pulse Ox 97 01/09/25 07:45 Oxygen Delivery Method Room Air 01/09/25 07:45 BMI result Body Mass Index 28.6 Const General: healthy appearing and no acute distress Nutritional Appearance: overweight Orientation/consciousness: patient oriented x3 Limitations: no limitations HEENT Head: Yes normal to inspection Ears: hearing grossly normal bilaterally Mouth: Normal oral and palatal mucosa present Eyes Sclerae: sclerae normal Pupils: Equal, round and reactive pupils present Neck Neck: Yes normal visual inspection Chest Chest palpation & inspection: normal inspection of the chest Resp Effort & Inspection: normal respiratory effort Auscultation: clear to auscultation bilaterally Cardio Palpation: normal PMI Rate: regular rate Rhythm: regular rhythm Heart sounds: S1 normal heart sound present, S2 normal heart sound present and no murmurs GI Palpation (GI): Soft to palpation, nontender and No hepatosplenomegaly present Auscultation: normal bowel sounds Rectal Exam - Female: deferred Skin General skin exam: no rashes or lesions noted Neuro General: patient oriented x3, gait normal and moves all extremities Cranial nerves: Yes Equal, round and reactive pupils present and Yes Normal hearing present Speech: No Abnormal speech present Psych Appearance: grossly normal Mental Status: mental status grossly normal Assessment & Plan Assessment & Plan (1) Upper abdominal pain: Code(s): R10.10 - Upper abdominal pain, unspecified Category: Medical (2) Early satiety: Code(s): R68.81 - Early satiety Category: Medical (3) GERD (gastroesophageal reflux disease): Code(s): K21.9 - Gastro-esophageal reflux disease without esophagitis Category: Medical (4) Celiac disease: Comment: In remission on gluten free diet, negative EGD and colonoscopy 04/2022, follows up with GI annually Code(s): K90.0 - Celiac disease Category: Medical Plan 44 YF with psoriasis diagnosed with Celiac Disease in 2009 and following a strict gluten free diet. She notes symptoms on accidental exposure to minimal amounts of gluten. She takes multiple supplements - calcium, vitamin-D, vitamin B12. Labs showed normal celiac serologies, LFTs, vitamin D and vitamin B12 levels. Patient's dad was detected to have colon polyps in his 40s.? Per patient EGD and colonoscopy in 2011 were negative. 04/2022 EGD and colonoscopy were performed and findings as noted above.? Pt was advised repeat Colon in 5 yrs due to positive FH (Due 04/2027) 09/19/24 Taking Omeprazole 20 mg daily and Mylanta prn for heartburn. Noted an episode of severe upper abd pain (without radiation) after drinking [place] water Schedule abd US to rule out cholelithiasis. Patient advised to discuss pneumococcal vaccination with PCP during her follow- up visit - message sent to Dr Feliz 01/09/25 US results reviewed. Of note pt had normal bone density on Dexa scan in Oct, 2021 FU in 8 months MANAGEMENT OF CELIAC DISEASE (FROM UPTODATE): Repletion of nutritional deficiencies???Patients should be tested for deficiency of vitamins (A, D, E, B12), copper, zinc, carotene,?folic acid, ferritin, iron, and prothrombin time (PT) measured for potential vitamin K deficiency. Deficiency in thiamine, vitamin B6, magnesium, and?selenium may also occur depending on the disease severity and dietary intake and should be tested for in the presence of clinical signs or symptoms of a deficiency. A gluten-free diet may induce troublesome constipation since it is low in roughage. This usually responds to fiber supplementation with?psyllium?seed husks. Medication absorption???There may be incomplete absorption of medication in untreated, partially treated, or refractory celiac disease. This is important for females of childbearing age who take oral contraceptive pills, where there may be incomplete absorption of the medication such that they should be advised to use alternative contraception. Prevention of bone loss???Bone loss is common in celiac disease, and can occur in patients without gastrointestinal symptoms Much of the bone loss is related to secondary hyperparathyroidism which is probably due to vitamin D deficiency. Patients with advanced disease may have bone pain, pseudofractures, or deformity, but the majority of patients are asymptomatic or have only raised serum levels of alkaline phosphatase or hypocalcemia. It can only be partially reversed with a gluten-free diet; loss of bone density in the peripheral skeleton may persist despite apparent normalization at axial skeletal sites Patients diagnosed with celiac disease should be evaluated for bone loss using a DXA (dual energy x-ray absorptiometry) scan. Monitoring by repeat DXA scan after one year is useful in patients with osteopenia since it permits estimation of the rate of change of bone mineral density Pneumococcal vaccination???Celiac disease is associated with hyposplenism. Therefore, prophylactic administration of pneumococcal vaccine is recommended Medications: Refilled hyoscyamine sulfate (Levsin/SL) 0.125 mg sublingual BID-QID 30 days PRN 30 tabs 3RF dyspepsia K90.0 - Celiac disease, K92.89 - Other specified diseases of the digestive system Coding Level of Care Code Est Pt Level 4 (12366) Diagnoses Upper abdominal pain R10.10 Early satiety R68.81 GERD (gastroesophageal reflux disease) K21.9 Celiac disease K90.0 Time Spent (min) 21
[2025-01-09 07:45] VITALS: BP 120/68; PULSE 97; O2SAT 97; BMI 28.6
== END 2025-01-09 08:07 | disposition home or self-care (01) ==
LOC: HO.HGI 07:30
PROVIDERS: PCP Internal Medicine; Visit Provider Internal Medicine Gastroenterology
DX: R10.10 Upper abdominal pain, unspecified (principal); R68.81 Early satiety; K21.9 Gastro-esophageal reflux disease without esophagitis; K90.0 Celiac disease
CPT/HCPCS: 99214

== ENCOUNTER 2025-03-27 11:36 | Outpatient (AMB) | payer BC, SELFPAY ==
[2025-03-27 11:38] VITALS: BP 118/78; PULSE 85; RESP 18; TEMP 36.8; O2SAT 99; BMI 29.5
--- NOTE | 2025-03-27 11:38 | MHC.PC.OV ---
Vital Signs 03/27/25 11:38 Height 5 ft 8 in Weight 194 lb BMI 29.5 BP 118/78 Blood Pressure Location Lt brachial Position Sitting Respiration 18 Pulse 85 Pulse Source Pulse Oximeter Temp 98.3 F Temp Source Oral Pulse Oximetry (%) 99 Oxygen Delivery Method Room Air Intake Visit Reasons: Intermitent chest pains Intake Note: Pt is here today for a sikc visit. Pt c/o intermittent chest pain for years seen Yardage Control Operator in the past. Allergies Gluten Allergy (Severe, Uncoded 03/27/25 11:39) Abdominal pain, bloating Dust and Mold Allergy (Mild, Uncoded 03/27/25 11:39) Congestion, sore ears Medication List - Last Reconciled 03/27/25 by Sharon Feliz MD bupropion HCl XL 300 mg PO QAM clobetasol 0.05% mL topical dextroamphetamine-amphetamine 10 mg ER 1 cap PO QAM estradiol (Vivelle-Dot) 1 patch transdermal 2XW famotidine 40 mg PO BEDTIME hyoscyamine sulfate (Levsin/SL) 0.125 mg sublingual BID-QID PRN 30 days miscellaneous medical supply 1 ea miscellaneous .QD omeprazole 20 mg PO DAILY 30 days Tobacco use date assessed: 03/27/25 Dental Screening Dental Screen Date: 03/27/25 Did you have a dental visit in the last 12 months?: Yes Did you have a dental problem in the last 6 months where you did not have access to dental care?: No Was dental information given to patient?: Patient has dentist HPI Intermitent chest pains HPI Details Pt complains of recurrent intermittent left upper chest pains squeezing like and pressure sensation on and off lasting a few minutes to an hour, 5/10, not radiation, not related to physical activity occasionally at night after laying down. Patient denies pleurisy cough nausea vomiting bloating left arm pain or numbness. Patient exercises on elliptical 3 times a week. She is established with the prescriber for chronic anxiety and ADHD controlled on current medications. Patient denies change in appetite insomnia depression. She has been under stress related to her child with ADHD [facility] Medical History (Updated 03/27/25 @ 15:59 by Sharon Feliz MD) Anxiety and depression Tonsillith Annual physical exam Bladder prolapse, female, acquired Celiac disease Osteopenia Eczema Psoriasis Surgical History Hx of vaginal surgery H/O colonoscopy History of esophagogastroduodenoscopy (EGD) Family History Father Family history of prostate problems HTN (hypertension) Mother HTN (hypertension) Maternal Grandmother Parkinsons CVD (cardiovascular disease) Maternal Uncle Colon cancer Other Mental health disorder Substance use disorder Social History Household Members: Spouse and Children 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 1. Little interest or pleasure in doing things: not at all 2. Feeling down, depressed, or hopeless: not at all 3. Trouble falling or staying asleep, or sleeping too much: not at all 4. Feeling tired or having little energy: more than half the days 5. Poor appetite or overeating: not at all 6. Feeling bad about yourself - or that you are a failure or have let yourself or your family down: not at all 7. Trouble concentrating on things, such as reading the newspaper or watching television: several days 8. Moving or speaking so slowly that other people could have noticed. Or the opposite - being so fidgety or restless that you have been moving around a lot more than usual: not at all 9. Thoughts that you would be better off or of hurting yourself in some way: not at all Total score: 3 Depression Screening Interpretation: Negative Depression Screening Done: Yes 62654 - PHQ-9 Billing: Yes Source: Developed by Drs. cD Sutton, Zuleyma Acosta, Anthony De La Paz and colleagues, with an educational melisa from [employer]. Thrive Questionnaire Date Thrive assessed: 03/27/25 I am a: Patient What is your living situation today?: I have a steady place to live Within the past 12 months, did the food you bought not last and you didn't have the money to get more?: Never true Within the past 12 months, did you worry whether your food would run out before you got money to buy more?: Never true Do you have trouble paying for medicines?: No Do you have trouble getting transportation to medical appointments?: No Do you have trouble paying your heating and electricity bill?: No Do you have trouble taking care of your child, family member or friend?: No Do you have trouble with day-to-day activities such as bathing, preparing meals, shopping, managing finances, etc.?: No Are you currently unemployed and looking for a job?: No Are you interested in more education?: No Please select the resources that you would like help with: None Currently or been in a relationship where the following occur: No concerns reported THRIVE Score: 0 AUDIT C Alcohol Use Questionnaire (AUDIT-C) 1. How often do you have a drink containing alcohol?: 2-4 times a month 2. How many drinks containing alcohol do you have on a typical day when you are drinking?: 1 or 2 3. How often do you have six or more drinks on one occasion?: Never Total Score: 2 VERÓNICA-7 AMB Questionnaire VERÓNICA-7 Date VERÓNICA - 7 assessed: 03/27/25 Feeling nervous, anxious, or on edge: 0 = Not at all Not being able to stop or control worryin = Not at all Worrying too much about different things: 1 = Several days Trouble relaxin = Not at all Being so restless that it is hard to sit still: 0 = Not at all Becoming easily annoyed or irritable: 1 = Several days Feeling afraid as if something awful might happen: 0 = Not at all Total VERÓNICA-7 score (0-4 normal; 5-9 mild; 10-14 moderate; 15-21 severe): 2 Source: Developed by Drs. Dc Sutton, Zuleyma Acosta, Anthony De La Paz and colleagues, with an educational melisa from [employer]. VERÓNICA-7 Assessment Billing VERÓNICA-7 Assessment Tool: VERÓNICA-7 Assessment 67079 Review of Systems Const All systems reviewed & are unremarkable except as noted in HPI and below ENT Reports no additional complaints Card Reports no additional complaints Resp Reports no additional complaints GI Reports no additional complaints Reports no additional complaints Physical exam (Primary Care) Vital Signs: Last Vital Signs Temp 98.3 F 03/27/25 11:38 Pulse 85 03/27/25 11:38 Resp 18 03/27/25 11:38 BP 118/78 03/27/25 11:38 Pulse Ox 99 03/27/25 11:38 Oxygen Delivery Method Room Air 03/27/25 11:38 BMI result Body Mass Index 29.5 Tobacco/Smoking Status: Tobacco use Status Tobacco use date assessed 03/27/25 03/27/25 11:45 Patient Tobacco Use Status Never used Tobacco 03/27/25 12:26 e-Cigarette/Vaping Use Never Used 03/27/25 12:26 PHQ-9: PHQ-9 Score PHQ-9: Total score 3 03/27/25 12:23 Depression Screening Interpretation: Negative Thrive Assessment: Date of Thrive Assessment Date Thrive assessed 03/27/25 03/27/25 11:45 Currently or been in a relationship where the following occur: No concerns reported Const General: no acute distress HENMT Head: Yes normal to inspection Eyes General: appearance normal, both eyes and all related structures Neck Neck: Yes no lymphadenopathy and Yes supple Resp Effort & Inspection: normal respiratory effort Auscultation: clear to auscultation bilaterally Cardio Rhythm: regular rhythm Heart sounds: S1 normal heart sound present and S2 normal heart sound present GI Inspection: Yes normal to inspection Coding Level of Care Code Est Pt Level 3 (10527) Diagnoses Angina at rest I20.89 ADHD F90.9 Additional Codes VERÓNICA-7 Assessment Billing - VERÓNICA-7 Assessment Tool: VERÓNICA-7 Assessment 49037 ([id number]) PHQ-9 - 33784 - PHQ-9 Billing: Yes ([id number]) Assessment & Plan Assessment & Plan (1) Angina at rest: Code(s): I20.89 - Other forms of angina pectoris Category: Medical Plan: EKG showed normal sinus rhythm flat T-waves in 3 AVF, V3-6 For intermittent chest pain question of angina at rest patient will be referred for nuclear stress test (2) ADHD: Code(s): F90.9 - Attention-deficit hyperactivity disorder, unspecified type Category: Medical Plan: Established with a prescribed and the therapist Orders: Orders AMB EKG-In Office Today I20.89 - Other forms of angina pectoris, R10.10 - Upper abdominal pain, unspecified, R73.9 - Hyperglycemia, unspecified CA stress test Today I20.89 - Other forms of angina pectoris NM cardiolite stress test Today I20.89 - Other forms of angina pectoris
--- OUTSIDE RECORDS SUMMARY | 2025-03-27 14:03 | XMS_ITS | Patient Health Record ---
Author Organization [facility] Address [address], [place] [id number] Care Team Providers Care Therapeutic Strategy Lead Name Role Phone Sharon Feliz MD Primary Care Provider Kait Ovalle Unavailable [phone] Allergies Allergen (clinical drug ingredient) Drug/Non Drug [...] W/U Status Risk Notes Problem Celiac disease (868529802) Celiac disease (579.0) Active confirmed (Abner) Problem Psoriasis (4131023) Other psoriasis (696.1) Active confirmed (Abner) Problem Acne (25598677) Other acne (706.1) Active confirmed (Abner) Problem Hypothyroidism (04824001) Hypothyroidism, unspecified (E03.9) Active confirmed Problem Chronic frontal sinusitis (00380857) Chronic frontal sinusitis (J32.1) Active confirmed Problem Constipation (25230919) Constipation, unspecified (K59.00) Active confirmed 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 Problem Excessive and frequent menstruation (721074396) Excessive and frequent menstruation with regular cycle (N92.0) Active confirmed Problem Intermenstrual bleeding - irregular (30548078) Excessive and frequent menstruation with irregular cycle (N92.1) Active confirmed Problem Body mass index 30.00 to 34.99 (525310238851310) Body mass index (BMI) 32.0-32.9, adult (Z68.32) Active confirmed Vital Signs Height 68 in 08/07/2024 unable to obtai n other vitals (telehealth) Encounters Encounter Location Date Provider Diagnosis [address] [id number] 08/07/2024 Kait Jimenez Hypothyroidism, unspecified E03.9 ; 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 ; Pain in right knee M25.561 and Pain in left knee M25.[address] [id number] 07/24/2024 Kait Jimenez [address] [id number] 08/07/2024 Kait Jimenez [address] [id number] 10/15/2024 Kait Jimenez [address] [id number] 11/11/2024 Kait Jimenez Assessments Encounter Date Diagnosis [...] with 0.5mg capsules for titration. Rx to [facility] for LowDoseNaltrexone 0.25mg caps. Patient to [...] with 0.5mg capsules for titration. Rx to [facility] for LowDoseNaltrexone 0.25mg caps. Patient to [...] Provider Name:Kait Jimenez, 08/05/2025 09:30:00 AM, [address] [facility], [place], [place], [id number], Insurance Providers Payer Name Payer Address Payer Phone Subscriber Number Group Number Insured Name Patient Relationship to Insured Coverage Start Date Coverage End Date [facility] [address] [place], [place] [id number] Adeline Laura Self - patient is the insured Medical (General) History Medical History History ICD Code celiac osteopenia psoriasis Vitamin B12 deficiency Vitamin D deficiency bladder prolapse anxiety/depression Hypothyroidism-borderline Surgical History Surgery Date(Month/Year) colonoscopy 2022 endoscopy 2012 DEXA scan 2013, 2018 Hospitalization History Reason Date(Month/Year) Childbirth only
== END 2025-03-27 13:19 | disposition home or self-care (01) ==
LOC: HO.HMCC 11:37
PROVIDERS: PCP Internal Medicine; Visit Provider Internal Medicine
DX: I20.89 Other forms of angina pectoris (principal); F90.9 Attention-deficit hyperactivity disorder, unspecified type

== ENCOUNTER → 2025-03-27 11:36 | Outpatient (BNVA) | payer BC, SELFPAY | PROVIDERS: PCP Internal Medicine; Visit Provider Internal Medicine | DX: I20.89 Other forms of angina pectoris (principal); G47.00 Insomnia, unspecified; F32.A Depression, unspecified; F90.9 Attention-deficit hyperactivity disorder, unspecified type; R10.10 Upper abdominal pain, unspecified; R73.9 Hyperglycemia, unspecified; Z63.6 Dependent relative needing care at home | CPT/HCPCS: 96127 ==

== ENCOUNTER 2025-05-07 08:31 | Outpatient (AMB) | payer BC, SELFPAY ==
[2025-05-07 08:36] VITALS: BP 110/74; PULSE 97; RESP 18; TEMP 36.9; O2SAT 99; BMI 29.8
--- NOTE | 2025-05-07 08:36 | MHC.PC.OV ---
Vital Signs 05/07/25 08:36 Height 5 ft 8 in Weight 196 lb BMI 29.8 BP 110/74 Blood Pressure Location Rt brachial Position Sitting Respiration 18 Pulse 97 Pulse Source Pulse Oximeter Temp 98.5 F Temp Source Oral Pulse Oximetry (%) 99 Oxygen Delivery Method Room Air Intake Visit Reasons: Annual PE Intake Note: Pt is here today for PE. Allergies Gluten Allergy (Severe, Uncoded 05/07/25 08:38) Abdominal pain, bloating Dust and Mold Allergy (Mild, Uncoded 05/07/25 08:38) Congestion, sore ears Medication List - Last Reconciled 05/07/25 by Sharon Feliz MD bupropion HCl XL 300 mg PO QAM clobetasol 0.05% mL topical dextroamphetamine-amphetamine 10 mg ER 1 cap PO QAM estradiol (Vivelle-Dot) 1 patch transdermal 2XW famotidine 40 mg PO BEDTIME hyoscyamine sulfate (Levsin/SL) 0.125 mg sublingual BID-QID PRN 30 days miscellaneous medical supply 1 ea miscellaneous .QD omeprazole 20 mg PO DAILY 30 days Tobacco use date assessed: 05/07/25 Dental Screening Dental Screen Date: 05/07/25 Did you have a dental visit in the last 12 months?: Yes Did you have a dental problem in the last 6 months where you did not have access to dental care?: No Was dental information given to patient?: Patient has dentist HPI Annual PE HPI Details Pt presents for PE. Patient complains of chronic sciatica and wants to be referred to physical therapy [facility] Medical History (Updated 05/07/25 @ 09:21 by Sharon Feliz MD) Anxiety and depression Tonsillith Annual physical exam Bladder prolapse, female, acquired Celiac disease Osteopenia Eczema Psoriasis Surgical History Hx of vaginal surgery H/O colonoscopy History of esophagogastroduodenoscopy (EGD) Family History Father Family history of prostate problems HTN (hypertension) Mother HTN (hypertension) Maternal Grandmother Parkinsons CVD (cardiovascular disease) Maternal Uncle Colon cancer Other Mental health disorder Substance use disorder Social History Household Members: Spouse and Children 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, 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 Alcohol intake: current Alcohol intake frequency: holidays/special occasions only Patient Tobacco Use Status: Never used Tobacco e-Cigarette/Vaping Use: Never Used Second Hand Smoke Exposure: No service: No Current occupational status: employed 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 Cognitive needs: No Hearing needs: No Vision needs: Yes Questionnaire Thrive Questionnaire Date Thrive assessed: 03/24/25 I am a: Patient What is your living situation today?: I have a steady place to live Within the past 12 months, did the food you bought not last and you didn't have the money to get more?: Never true Within the past 12 months, did you worry whether your food would run out before you got money to buy more?: Never true Do you have trouble paying for medicines?: No Do you have trouble getting transportation to medical appointments?: No Do you have trouble paying your heating and electricity bill?: No Do you have trouble taking care of your child, family member or friend?: No Do you have trouble with day-to-day activities such as bathing, preparing meals, shopping, managing finances, etc.?: No Are you currently unemployed and looking for a job?: No Are you interested in more education?: No Please select the resources that you would like help with: None Currently or been in a relationship where the following occur: No concerns reported THRIVE Score: 0 VERÓNICA-7 AMB Questionnaire VERÓNICA-7 Date VERÓNICA - 7 assessed: 03/27/25 Source: Developed by Drs. Dc Sutton, Zuleyma Acosta, Anthony De La Paz and colleagues, with an educational melisa from [email or web address]. Review of Systems Const All systems reviewed & are unremarkable except as noted in HPI and below Eyes Reports no additional complaints ENT Reports no additional complaints Card Reports no additional complaints Resp Reports no additional complaints GI Reports no additional complaints Reports no additional complaints Physical exam (Primary Care) Vital Signs: Last Vital Signs Temp 98.5 F 05/07/25 08:36 Pulse 97 05/07/25 08:36 Resp 18 05/07/25 08:36 BP 110/74 05/07/25 08:36 Pulse Ox 99 05/07/25 08:36 Oxygen Delivery Method Room Air 05/07/25 08:36 BMI result Body Mass Index 29.8 Tobacco/Smoking Status: Tobacco use Status Tobacco use date assessed 05/07/25 05/07/25 08:42 Patient Tobacco Use Status Never used Tobacco 05/07/25 08:42 e-Cigarette/Vaping Use Never Used 05/07/25 08:42 Thrive Assessment: Date of Thrive Assessment Date Thrive assessed 03/24/25 05/07/25 08:42 Currently or been in a relationship where the following occur: No concerns reported Const General: no acute distress HENMT Head: Yes normal to inspection Ears: TM's normal bilaterally Face and sinus: Yes normal facial exam Throat: Yes posterior oropharynx normal Eyes General: appearance normal, both eyes and all related structures Neck Neck: Yes no lymphadenopathy and Yes supple Resp Effort & Inspection: normal respiratory effort Auscultation: clear to auscultation bilaterally Cardio Rhythm: regular rhythm Heart sounds: S1 normal heart sound present and S2 normal heart sound present GI Inspection: Yes normal to inspection Palpation (GI): Soft to palpation Percussion: Yes normal to percussion Auscultation: normal bowel sounds Immunizations pneumoc 20-dru conj-dip cr(PF) 0.5 mL IM syringe Performing Provider: Sharon Feliz MD Performing Location[place] [facility] Administered by: YOSELIN Blanca on 05/07/25 08:54 Dose Route Admin Location Dispensed Lot Number Expiration Date [facility] Solar Sales Manager 0.5 mL IM Left Deltoid 0.5 mL [id number] 05/01/26 5752-5113-98 [employer] Total Dispensed Waste 0.5 mL 0 % VIS Given Date VIS Provided VIS Publication Date 05/07/25 Single Vaccine 25 Eligibility Eligibility Date Funding Source Not [facility] Eligible 05/07/25 Private Coding Level of Care Code Est Pt Prev Care 40-64y(59552) Diagnoses Sciatica M54.30 Annual physical exam Z00.00 Anxiety and depression F41.9; F32.9 Celiac disease K90.0 Assessment & Plan Assessment & Plan (1) Sciatica: Code(s): M54.30 - Sciatica, unspecified side Category: Medical Plan: refer to PT (2) Annual physical exam: Code(s): Z00.00 - Encounter for general adult medical examination without abnormal findings Category: Medical Plan: Well-balanced diet regular physical activity discussed with the patient. She is up-to-date with Pap smear and mammogram by urogynaecologist (3) Anxiety and depression: Comment: f/u therapist Code(s): F41.9 - Anxiety disorder, unspecified; F32.9 - Major depressive disorder, single episode, unspecified Category: Medical Plan: Continue current medications follow-up with psychiatry (4) Celiac disease: Comment: In remission on gluten free diet, negative EGD and colonoscopy 04/2022, follows up with GI annually Code(s): K90.0 - Celiac disease Category: Medical Plan: Follow-up with GI Orders: Orders PT Evaluation and Treatment Today M54.30 - Sciatica, unspecified side Pneumococcal 20 Immunization Today Z23 - Encounter for immunization Comprehensive [place]. Panel Fast 1 Year Z00.00 - Encounter for general adult medical examination without abnormal findings TSH reflex Free T4 1 Year Z00.00 - Encounter for general adult medical examination without abnormal findings Vitamin D 25-OH Total 1 Year Z00.00 - Encounter for general adult medical examination without abnormal findings UA w Microscopic 1 Year Z00.00 - Encounter for general adult medical examination without abnormal findings Complete Blood Count Auto Diff 1 Year Z00.00 - Encounter for general adult medical examination without abnormal findings Lipid Panel 1 Year Z00.00 - Encounter for general adult medical examination without abnormal findings
--- OUTSIDE RECORDS SUMMARY | 2025-05-07 08:41 | XMS_ITS ---
Author Name [facility] Organization Unknown History of Medication Use Medication Directions Dispensed Refills Start Date End Date Stat us Liletta (52 MG) 20.1 MCG/DAY Liletta (52 MG) 20.1 MCG/DAY active Allergies Allergen Reaction Severity Comment Documented Date Source Statu s GLUTEN [facility] TOMATO ALLERGENIC EXTRACT RASH [facility] P Encounters Encounter Type Encounter Reason Primary Diagnosis Location Date Ambulatory [facility] 11/11/2024 [facility] 10/15/2024 [facility]ulatory [facility] 08/07/2024 Ambulatory [facility] 07/24/2024 Ambulatory Collaborative [facility] 12/13/2023 Care Team Organization Name Specialty Phone [facility]
--- OUTSIDE RECORDS SUMMARY | 2025-05-07 08:41 | XMS_ITS | Patient Health Record ---
Author Organization [facility] Address [address], [place] [address] Care Team Providers Care Harness Fitter Name Role Phone Sharon Feliz MD Primary Care Provider Kait Ovalle Unavailable [phone] Allergies Allergen (clinical drug ingredient) Drug/Non Drug [...] 3mg Active Liletta (52 MG) 20.1 MCG/DAY Intrauterine; Duration: 90 Days Active Wellbutrin XL 300 MG 1 tablet in the mor elmer Orally Once a day Active Amphetamine-Dextroamphet ER 10 MG Oral; Duration: 30 Days Acti ve Problems Problem Type SNOMED Code ICD Code Onset Dates Problem Status W/U Status Risk Notes Problem Celiac disease (307165345) Celiac disease (579.0) Active confirmed (Abner) Problem Psoriasis (2641487) Other psoriasis (696.1) Active confirmed (Abner) Problem Acne (85564960) Other acne (706.1) Active confirmed (Abenr) Problem Hypothyroidism (40827763) Hypothyroidism, unspecified (E03.9) Active confirmed Problem Chronic frontal sinusitis (81282239) Chronic frontal sinusitis (J32.1) Active confirmed Problem Constipation (46744922) Constipation, unspecified (K59.00) Active confirmed Problem Guttate psoriasis (14825162) 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 Problem Excessive and frequent menstruation (080683953) Excessive and frequent menstruation with regular cycle (N92.0) Active confirmed Problem Intermenstrual bleeding - irregular (66667723) Excessive and frequent menstruation with irregular cycle (N92.1) Active confirmed Problem Body mass index 30.00 to 34.99 (435035873350252) Body mass index (BMI) 32.0-32.9, adult (Z68.32) Active confirmed Vital Signs Height 68 in 08/07/2024 unable to obtai n other vitals (telehealth) Encounters Encounter Location Date Provider Diagnosis [address] [id number] 08/07/2024 Kait Jimenez Hypothyroidism, unspecified E03.9 ; 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 ; Pain in right knee M25.561 and Pain in left knee M25.[address] [id number] 07/24/2024 Kait Jimenez [address] [id number] 08/07/2024 Kait Jimenez [address] [id number] 10/15/2024 Kait Jimenez [address] [id number] 11/11/2024 Kait Jimenez Assessments Encounter Date Diagnosis [...] with 0.5mg capsules for titration. Rx to [facility] for LowDoseNaltrexone 0.25mg caps. Patient to [...] with 0.5mg capsules for titration. Rx to [facility] for LowDoseNaltrexone 0.25mg caps. Patient to [...] Provider Name:Kait Jimenez, 08/05/2025 09:30:00 AM, [address] [place] [address], [place], [place], [id number], Insurance Providers Payer Name Payer Address Payer Phone Subscriber Number Group Number Insured Name Patient Relationship to Insured Coverage Start Date Coverage End Date [facility] [address] [place], [place] [id number] Adeline Laura Self - patient is the insured Medical (General) History Medical History History ICD Code celiac osteopenia psoriasis Vitamin B12 deficiency Vitamin D deficiency bladder prolapse anxiety/depression Hypothyroidism-borderline Surgical History Surgery Date(Month/Year) colonoscopy 2022 endoscopy 2012 DEXA scan 2013, 2018 Hospitalization History Reason Date(Month/Year) Childbirth only
--- OUTSIDE RECORDS SUMMARY | 2025-05-07 08:41 | XMS_ITS | Clinical Summary ---
Author Organization [facility] Address [address] [facility] [address] [place] [address] Phone Care Team Providers Care Simplex Operator Name Role Phone Unavailable Primary Care Provider Unavailabl e Social History Tobacco Use Types Packs/Day Years Used Date Smoking Tobacco: Never Assessed Education Answer Date Recorded Are you interested in more education? Not on noelle e 03/22/2023 Are you concerned about learning? Not on file 03/22/2023 No 03/22/2023 No 03/22/2023 Digital Access Answer Date Recorded No 03/22/2023 No 03/22/2023 Reliable internet access at home? Not on file 03/22/2023 Device with a working camera? Not on file Comments Unknown Sex and Gender Information Value Date Recorded Sex Assigned at Not on file Legal Sex Female 9:20 PM EDT Gender Identity Not on file Sexual Orientation Not on file Plan of Treatment Health Maintenance Due Date Last Done Comments Adult Td,Tdap Booster 1981 DEPRESSION SCREENING 1993 SMOKING Hx and SMOKELESS TOB ACCO SCREENING 1994 HEPATITIS C SCREENING 1999 HIV ONE-TIME SCREENING (18-6 5 YEARS) 1999 PAP SMEAR 2002 MAMMOGRAM 2021 COVID-19 VACCINE (2023-2 5 season) 2024 HEPATITIS A VACCINES Aged Out No long er eligible based on patient's age to complete this topic HIB VACCINES Aged Out No longer eligi ble based on patient's age to complete this topic MENINGOCOCCAL VACCINES (ACWY) Aged Out No longer eligible based on patient's age to complete this topic MENINGOCOCCAL VACCINES (B) Aged Out N o longer eligible based on patient's age to complete this topic PNEUMOCOCCAL VACCINES (0-49 years) Aged Out No longer eligible based on patient's age to complete this topic Medical Devices Not on file Additional Source Comments The information contained in this document represents components of the legal health record. It is not the complete legal health record.[facility]
== END 2025-05-07 09:23 | disposition home or self-care (01) ==
LOC: HO.HMCC 08:32
PROVIDERS: PCP Internal Medicine; Visit Provider Internal Medicine
DX: M54.30 Sciatica, unspecified side (principal); Z00.00 Encounter for general adult medical examination without abnormal findings; F41.9 Anxiety disorder, unspecified; F32.9 Major depressive disorder, single episode, unspecified; K90.0 Celiac disease; Z23 Encounter for immunization

== ENCOUNTER → 2025-05-07 08:31 | Outpatient (BNVA) | payer BC, SELFPAY | PROVIDERS: PCP Internal Medicine; Visit Provider Internal Medicine | DX: Z00.00 Encounter for general adult medical examination without abnormal findings (principal); Z23 Encounter for immunization; M54.30 Sciatica, unspecified side; F41.9 Anxiety disorder, unspecified; F32.9 Major depressive disorder, single episode, unspecified; K90.0 Celiac disease | CPT/HCPCS: 90471; 90677 ==

== ENCOUNTER → 2025-05-27 09:54 | Outpatient (REF) | payer BC, SELFPAY ==
--- NOTE | 2025-05-27 09:56 | CA_ITS ---
Acquisition Time: 2025-05-27 09:52:30 Total Exercise Time: 00:08:31 Test Indications: cp Medications: SEE H&P Protocol: UMANG Max HR: 162 BPM 91% of Pred: 177 BPM Max BP: 160/70 mmHG Max Work Load: 10.1 METS Exercise stress test with exercise 8 mins 31 secs of Umang Protocol, achieving 91% MPHR, with reports of 2/10 left sided chest pressure and SOB, without any arrythmias, with normotensive response to exercise. With borderline ST changes inferiorly warranting further evaluation; nonspecific ST at baseline. In recovery, chest pain resolved and breathing returned to baseline. ST segement improved. Recommend stress test with nuclear images. Test reviewed with Dr. Faye. Referred By: Sharon Feliz Electronically Signed By: Jay Rojas
--- OUTSIDE RECORDS SUMMARY | 2025-05-27 10:40 | XMS_ITS | Clinical Summary ---
Author Organization [facility] Address [address] [facility] [address] [place] [address] Phone Care Team Providers Care Work Distributor Name Role Phone Unavailable Primary Care Provider [...] It is not the complete legal health record.[facility]
--- OUTSIDE RECORDS SUMMARY | 2025-05-27 10:40 | XMS_ITS | Patient Health Record ---
Author Organization [facility] Address [address] [place], [place] [address] Care Team Providers Care House Cleaner Supervisor Name Role Phone Sharon Feliz MD Primary Care Provider Kait Ovalle Unavailable [phone] Allergies Allergen (clinical drug ingredient) Drug/Non Drug [...] W/U Status Risk Notes Problem Celiac disease (780872179) Celiac disease (579.0) Active confirmed (Abner) Problem Psoriasis (5953597) Other psoriasis (696.1) Active confirmed (Abner) Problem Acne (29530006) Other acne (706.1) Active confirmed (Abner) Problem Hypothyroidism (10141799) Hypothyroidism, unspecified (E03.9) Active confirmed Problem Chronic frontal sinusitis (20186073) Chronic frontal sinusitis (J32.1) Active confirmed Problem Constipation (85122103) Constipation, unspecified (K59.00) Active confirmed 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 Problem Excessive and frequent menstruation (421443504) Excessive and frequent menstruation with regular cycle (N92.0) Active confirmed Problem Intermenstrual bleeding - irregular (91767111) Excessive and frequent menstruation with irregular cycle (N92.1) Active confirmed Problem Body mass index 30.00 to 34.99 (698790804533024) Body mass index (BMI) 32.0-32.9, adult (Z68.32) Active confirmed Vital Signs Height 68 in 08/07/2024 unable to obtai n other vitals (telehealth) Encounters Encounter Location Date Provider Diagnosis [address] [id number] 08/07/2024 Kait Jimenez Hypothyroidism, unspecified E03.9 ; 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 ; Pain in right knee M25.561 and Pain in left knee M25.[address] [id number] 07/24/2024 Kait Jimenez [address] [id number] 08/07/2024 Kait Jimenez [address] [id number] 10/15/2024 Kait Jimenez [address] [id number] 11/11/2024 Kait Jimenez Assessments Encounter Date Diagnosis [...] with 0.5mg capsules for titration. Rx to [facility] pharmacy for LowDoseNaltrexone 0.25mg caps. Patient to [...] with 0.5mg capsules for titration. Rx to [facility] pharmacy for LowDoseNaltrexone 0.25mg caps. Patient to [...] Details Provider Name:Kait Jimenez, 08/05/2025 09:30:00 AM, [address] [place] [address], [place], [place], [id number], Insurance Providers Payer Name Payer Address Payer Phone Subscriber Number Group Number Insured Name Patient Relationship to Insured Coverage Start Date Coverage End Date [employer] [address] [place], [place] [id number] Adeline Laura Self - patient is the insured Medical (General) History Medical History History ICD Code celiac osteopenia psoriasis Vitamin B12 deficiency Vitamin D deficiency bladder prolapse anxiety/depression Hypothyroidism-borderline Surgical History Surgery Date(Month/Year) colonoscopy 2022 endoscopy 2012 DEXA scan 2013, 2018 Hospitalization History Reason Date(Month/Year) Childbirth only
== END ==
LOC: HO.CARD 09:54
PROVIDERS: PCP Internal Medicine; Visit Provider Internal Medicine
DX: I20.89 Other forms of angina pectoris (principal)
CPT/HCPCS: 93017

== ENCOUNTER → 2025-05-27 09:56 | Outpatient (BNV) | payer BC, SELFPAY | PROVIDERS: PCP Internal Medicine | DX: R07.2 Precordial pain (principal); R06.02 Shortness of breath | CPT/HCPCS: 93016; 93018 ==

== ENCOUNTER 2025-06-17 13:54 | Outpatient (REF) | payer BC, SELFPAY ==
--- NOTE | ~2025-06-17 | MM_ITS ---
EXAMINATION: DXA BONE DENSITY AXIAL HISTORY: Z78.0 - Asymptomatic menopausal state TECHNIQUE: BRANDiD - Shop. Like a Man. Dual energy absorptiometry (DEXA) of the lumbar spine, total left hip, and femoral neck was performed. COMPARISON: Comparison is made with the prior examination dated 10/19/2021. FINDINGS: The bone mineral density of the lumbar spine is 1.134 g/cm2, corresponding to a T-score of -0.4, and a Z-score of -1.1. This is indicative of normal bone mineral density. This represents a BMD change of 7.7% compared to the prior exam. This is statistically significant. The bone mineral density of the left total hip is 0.995 g/cm2, corresponding to a T-score of -0.1, and a Z-score of -0.4. This is indicative of normal bone mineral density. This represents a BMD change of 6.3% compared to the prior exam. This is statistically significant. The bone mineral density of the left femoral neck is 0.923 g/cm2, corresponding to a T-score of -0.8, and a Z-score of -0.8. This is indicative of normal bone mineral density. This represents a BMD change of 5.8% compared to the prior exam. FRACTURE RISK: The FRAX index suggests a ten year probability of major osteoporotic fracture of 2.4%, and of hip fracture 0.1%. MM/XR DEXA axial skeleton IMPRESSION: Based on bone mineral density, and according to World Health Organization (WHO) criteria, the diagnosis is consistent with normal bone mineral density. Statistically, 68% of repeat scans fall within 1 SD (+/- 0.010 g/cm2 for AP spine L1-L4) and 1 SD (+/- 0.012 g/cm2 for femur total) FRAX is a trademark of the [employer] for Metabolic Bone Disease, a World Health Organization (WHO) Collaborating Center. Electronically signed by: Dc White MD 06/17/2025 02:46 PM EDT
--- OUTSIDE RECORDS SUMMARY | 2025-06-17 17:43 | XMS_ITS | Clinical Summary ---
Author Organization [facility] Address [address] [facility] [address] [place] [address] Phone Care Team Providers Care Douper Name Role Phone Unavailable Primary Care Provider [...] YEARS) 1999 PAP SMEAR 2002 MAMMOGRAM 2021 INFLUENZA VACCINE (#1) 2025 COVID-19 VACCINE (2023-2 5 season) 2025 HEPATITIS A VACCINES Aged Out No long [...] It is not the complete legal health record.[facility]
== END 2025-06-17 13:55 | disposition home or self-care (01) ==
LOC: HO.MAMMO 13:54
PROVIDERS: PCP Internal Medicine; Visit Provider Internal Medicine
DX: Z13.820 Encounter for screening for osteoporosis (principal); Z78.0 Asymptomatic menopausal state
CPT/HCPCS: 77080

== ENCOUNTER → 2025-06-17 14:00 | Outpatient (BNV) | payer BC, SELFPAY | PROVIDERS: PCP Internal Medicine; Visit Provider Radiology Diagnostic Radiology | DX: E28.39 Other primary ovarian failure (principal) | CPT/HCPCS: 77080 ==

== ENCOUNTER → 2025-07-22 08:02 | Outpatient (REF) | payer BC, SELFPAY ==
--- NOTE | ~2025-07-22 | NM_ITS ---
EXERCISE MYOCARDIAL PERFUSION STUDY INDICATION: Chest pain to evaluate for myocardial ischemia TECHNIQUE: The patient was brought in for an exercise perfusion study on 07/22/2025. Patient performed exercise as per Reuben protocol and was injected 30 mCi of sestamibi once target heart rate was achieved. Images were obtained using the SPECT gamma camera interlaced with the gating device. Images were obtained in supine position. Resting perfusion study was performed on 07/25/2025. Patient was administered 30 mCi of sestamibi intravenously at rest. Images were then obtained in supine position. Images obtained without without CT attenuation. Total DLP 83 mGy-c m. Images were processed with the software and compared side to side in short axis, horizontal long axis and vertical long axis views. FINDINGS: Raw images were reviewed The stress perfusion study showed both attenuated as well as nonattenuated corrected images show normal uptake of radiotracer in all segments of the LV myocardium. The gated study shows normal LV systolic function with calculated LVEF of 71%. LV cavity is normal in size. The gated study shows normal systolic wall thickening and contraction of segments. Resting study shows nonattenuated images show normal uptake of radiotracer in all segments of the LV myocardium. Gating at rest reveals normal systolic wall motion with ejection fraction at 70%. The findings are consistent with normal myocardial perfusion. NM/NM cardiolite stress test IMPRESSION: 1. Myocardial perfusion imaging study shows normal myocardial perfusion. 2. Gated LVEF is 71%. 3. Transient ischemic dilatation not present. EKG revealed [positive for ischemia. Electronically signed by: Liam Corral MD 07/25/2025 02:51 PM EDT
--- NOTE | 2025-07-22 08:05 | CA_ITS ---
Acquisition Time: 2025-07-22 08:14:21 Total Exercise Time: 00:07:40 Test Indications: CP Medications: SEE H&P Protocol: UMANG Max HR: 157 BPM 89% of Pred: 176 BPM Max BP: 154/70 mmHG Max Work Load: 9.5 METS Exercise stress tets with exercise 7 mins 40 secs of Umang Protocol, achieving 89% MPHR, with reports of 4/10 left sided squeezing chest pain ath resolved quickly in recovery, without any arrythmias, with normotensive response to exercise. With baseline ST- T waves abnormlaity and with ST depression inferolaterally with exercise suggestive for ischemia. In recovery, ST degemnt improved. Nuclear images pending. Test reviewed with Dr. Corral. Referred By: Sharon Feliz Electronically Signed By: Jay Rojas
--- OUTSIDE RECORDS SUMMARY | 2025-07-22 08:06 | XMS_ITS | Patient Health Record ---
Author Organization [facility] Address [address] [place], [place] [address] Care Team Providers Care Health Underwriter Name Role Phone Sharon Feliz MD Primary Care Provider Kait Ovalle Unavailable [phone] Allergies Allergen (clinical drug ingredient) Drug/Non Drug [...] W/U Status Risk Notes Problem Celiac disease (276692154) Celiac disease (579.0) Active confirmed (Abner) Problem Psoriasis (8046579) Other psoriasis (696.1) Active confirmed (Abner) Problem Acne (14811050) Other acne (706.1) Active confirmed (Abner) Problem Hypothyroidism (84121299) Hypothyroidism, unspecified (E03.9) Active confirmed Problem Chronic frontal sinusitis (16922656) Chronic frontal sinusitis (J32.1) Active confirmed Problem Constipation (28003769) Constipation, unspecified (K59.00) Active confirmed Problem Guttate psoriasis (47054787) 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 Problem Excessive and frequent menstruation (064312966) Excessive and frequent menstruation with regular cycle (N92.0) Active confirmed Problem Intermenstrual bleeding - irregular (61573332) Excessive and frequent menstruation with irregular cycle (N92.1) Active confirmed Problem Body mass index 30.00 to 34.99 (191859213400290) Body mass index (BMI) 32.0-32.9, adult (Z68.32) Active confirmed Vital Signs Height 68 in 08/07/2024 unable to obtai n other vitals (telehealth) Encounters Encounter Location Date Provider Diagnosis [address] [id number] 08/07/2024 Kait Jimenez Hypothyroidism, unspecified E03.9 ; 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 ; Pain in right knee M25.561 and Pain in left knee M25.[address] [id number] 07/24/2024 Kait Jimenez [address] [id number] 08/07/2024 Kait Jimenez [address] [id number] 10/15/2024 Kait Jimenez [address] [id number] 11/11/2024 Kait Jimenez Assessments Encounter Date Diagnosis [...] with 0.5mg capsules for titration. Rx to [facility] pharmacy for LowDoseNaltrexone 0.25mg caps. Patient to [...] with 0.5mg capsules for titration. Rx to [facility] pharmacy for LowDoseNaltrexone 0.25mg caps. Patient to [...] Details Provider Name:Kait Jimenez, 08/05/2025 09:30:00 AM, [address] [place] [address], [place], [place], [id number], Insurance Providers Payer Name Payer Address Payer Phone Subscriber Number Group Number Insured Name Patient Relationship to Insured Coverage Start Date Coverage End Date [facility] [address] [place], [place] [id number] Adeline Laura Self - patient is the insured Medical (General) History Medical History History ICD Code celiac osteopenia psoriasis Vitamin B12 deficiency Vitamin D deficiency bladder prolapse anxiety/depression Hypothyroidism-borderline Surgical History Surgery Date(Month/Year) colonoscopy 2022 endoscopy 2012 DEXA scan 2013, 2018 Hospitalization History Reason Date(Month/Year) Childbirth only
--- OUTSIDE RECORDS SUMMARY | 2025-07-22 08:06 | XMS_ITS | Clinical Summary ---
Author Organization [facility] Address [address] [facility] [address] [place] [address] Phone Care Team Providers Care Lsat Instructor Name Role Phone Unavailable Primary Care Provider [...] 2021 INFLUENZA VACCINE (#1) 2025 COVID-19 VACCINE ( - 2024-2 6 season) 2025 HEPATITIS A VACCINES Aged Out [...] It is not the complete legal health record.[facility]
== END ==
LOC: HO.CARD 08:02
PROVIDERS: PCP Internal Medicine; Visit Provider Internal Medicine
DX: I20.89 Other forms of angina pectoris (principal); R94.39 Abnormal result of other cardiovascular function study
CPT/HCPCS: 78452; 93017; A9500

== ENCOUNTER → 2025-07-22 08:05 | Outpatient (BNV) | payer BC, SELFPAY | PROVIDERS: PCP Internal Medicine | DX: R07.89 Other chest pain (principal) | CPT/HCPCS: 78452; 93016; 93018 ==

== ENCOUNTER 2025-09-11 07:28 | Outpatient (AMB) | payer BC, SELFPAY ==
--- NOTE | 2025-09-11 07:33 | MHC.OFFVIS ---
Vital Signs 09/11/25 07:34 Height 5 ft 8 in Weight 193 lb BMI 29.3 BP 126/81 Blood Pressure Location Lt brachial Position Sitting Pulse 87 Intake Visit Reasons: gerd celiac Intake Note: Patient follow up for GERD and Celiac. Patient cc: GERD on and off, denies any other GI issues. 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 Accompanied by: Self / Same As Patient Allergies Gluten Allergy (Severe, Uncoded 05/07/25 08:38) Abdominal pain, bloating Dust and Mold Allergy (Mild, Uncoded 05/07/25 08:38) Congestion, sore ears Medication List - Last Reconciled 09/11/25 by Gregoria Salazar MD bupropion HCl XL 300 mg PO QAM clobetasol 0.05% mL topical dextroamphetamine-amphetamine 10 mg ER 1 cap PO QAM estradiol (Vivelle-Dot) 1 patch transdermal 2XW famotidine 40 mg PO BEDTIME hyoscyamine sulfate (Levsin/SL) 0.125 mg sublingual BID-QID PRN 30 days miscellaneous medical supply 1 ea miscellaneous .QD omeprazole 20 mg PO DAILY 30 days HPI HPI gerd celiac: Details: GI clinic visit for this 45 YF with psoriasis, osteopenia followed in GI for GERD and celiac disease. Patient has been followed by Dr. Fitzpatrick since March 2020. TODAY'S VISIT: Patient reports GERD on and off, denies any other GI issues. Notes heartburn 1-2 times a month at night - related to diet ([place], tomato based foods) and resolves with a liquid antacid Takes Pepcid at bedtime. Denies diarrhea or constipation (diarrhea with menstrual cycle) PAST VISITS: US results reviewed. 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 Also ate later than usual last night. Usually symptoms are well controlled. Denies dysphagia. Started having heartburn before Thanksgi - had a sensation of food getting stuck. Intermittent early satiety. Started taking Omeprazole and stopped drinking [place] water which has helped. Has to take liquid Mylanta a few times a week despite taking Omeprazole Tried making dietary changes. Noted an episode of severe upper abd pain (without radiation) after drinking [place] water Denies changes in wt Lab results reviewed with the patient. Continues to feel a little tired (chronic issue)- Wonders if it is related to ADHD Tried low dose Aderrall and felt better Takes Magnesium every night for contstipation and has a BM daily. Taking low dose Nalteroxone ? for autoimmune disease Noted jt pains in the hands over the summer and felt better with above Had foot and mouth disease after 8 yr old son and 5 yr old daughter caught it from school - now recovered Dad has Castro's esophagus and colon polyps and has a colonoscopy every 5 yrs Brother has GERD. Paternal GM had esophageal issues followed by esophageal ca Maternal GM had hiatal hernia Maternal uncle had colon cancer in his 50's She was feeling a little tired and has been taking a MVI daily. Takes liquid B12 and vitamin D less frequently Takes Citracal every morning. If gets gluten accidently she has abd cramping relieved by Levsin S/L If she is exposed to a lot of gluten, she can have vomiting and no cramping. Intermittent constipation and takes a magnesium pill in the evening which is helpful. (Has TMJ and grinds her teeth at night and Magnesium helps with this) EGD and Colon results reviewed with the patient. Noted abdominal pain after the procedures lasting for a day Had COVID infection 03/10/22 with GI symptoms. Diagnosed with Celiac disease in 2009 by lab tests. Follows a strict GFD.? Notes symptoms even with minimal exposure. (she thinks she was accidently exposed to gluten a few days ago - noted abdominal cramps and bloating)Had an EGD and Colonoscopy in 2011 for diarrhea and rectal bleeding - normal per patient. Pt has been unable to get records (? have been shredded) Patient denies symptoms of heartburn, dysphagia, nausea, vomiting, change in appetite. Intentional wt loss. Takes Citracal and takes Magnesium daily for constipation and has a BM daily. Denies recent change in bowel habits, diarrhea, black stools or rectal bleeding. Patient denies major cardiac or pulmonary problems, loud snoring or sleep apnea Denies problems with anesthesia in the past. Denies being on chronic anticoagulation - takes Ibuprofen prn for MUÑOZ and menstrual cramps. Takes 3 glasses of wine a week and denies smoking. 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 Two children - son 6 yrs, daughter 3 yrs. Patient denies known family history of celiac disease, colon polyps, colon cancer or other GI malignancies. No one wants to get tested.? Daughter has one of the Genes for celiac and no symptoms. Dad has colon polyps at age 40 yrs. PAST EGD/COLONOSCOPY:? Had an EGD and Colonoscopy in 2012 for diarrhea and rectal bleeding - normal per patient. Pt has been unable to get records (? have been shredded) LABS IN [facility] :? Reviewed IMAGING STUDIES:? 10/19/21 bone density study: 1. DIAGNOSIS: Based on the lowest Z-score value of -1.7 in the lumbarspine, the patient's bone density is within the expected range for age. ENDOSCOPIC STUDIES:? 04/25/22 EGD AND COLONOSCOPY SHOWED: Endoscopy Findings: STOMACH: Mild gastric erythema with a few 1 cms chronic appearing antral erosions. DUODENUM: Normal - biopsies were obtained from 3rd part of the duodenum to follow up on celiac sprue Colonoscopy Findings: No polyps were detected. Random biopsies were obtained from the right colon to check for microscopic colitis Moderate diverticulosis seen in the sigmoid colon Small hemorrhoids on retroflexed exam. Plan:? Repeat Colonoscopy interval based on path results - in 5 years if biopsies are normal due to FH of colon polyps. BIOPSIES SHOWED: A.? Small bowel, biopsy:? Duodenal mucosa with mildly increased intraepithelial lymphocytes and preserved villous architecture.? See comment. B.? Stomach, antrum, biopsy:? Antral-type mucosa with mild chronic inactive inflammation; no Helicobacter organisms seen. C.? Colon, random right, biopsy:? Colonic mucosa within normal limits; negative for microscopic colitis. PAST GI HISTORY BY REVIEW OF MEDICAL RECORDS: 03/04/[address] FITZPATRICK: The patient is a 39 y/o female who presents for an initial telephone visit? for a celiac disease. 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 She has 1 brother? with type 1 DM. Her parents do not have celiac disease diagnoses. Her father has? esphogus issues, possible Castro's esophagus. She thinks that her mother has a? mood disorder, but she is unsure. She denies ever smoking. She drinks EtOH about? 3 times per week. She occasionally uses marijuana. She takes a multivitamin. She? states that she does not always remembers to take her calcium supplements. She? states that she has periodic vitamin D deficiencies. She reports following a? strict gluten free diet and rarely goes out to eat. She limits her dairy? intake. She reports known diagnosis of celiac disease in 2009. She was? referred to GI at [facility], she does not remember the provider, who preformed? genetic testing. She did not have an EGD as her blood work was sufficient for a? celiac diagnosis. She had a normal EDG and colonoscopy around 2013 for blood in? her stool, but both were normal. She then had a bone density 5 years ago and was? found to have osteopenia. Her last bone density was worse, but she does not? think she was diagnosed with osteoporosis. She states that she saw? endocrinology, an unknown provider, in 12/2019 at [facility] but she does not have? a follow up. She had blood work done with the banquet server on call. She stopped? liothyronine on advice of the banquet server on call. Her PCP plans to repeat thyroid? blood work soon. She reports ongoing fatigue.? Fatigue was worse before her? celiac diagnosis. She had 2 deliveries, in 2014 and 2016. She? breastfed both of her children for 9 months. She also supplemented with formula.? She had an unplanned and miscarriage in 11/2019, after about 6 weeks,? and she was on control for a few month. She states periods were heavy and? long after the miscarriage. She does not plan any additional pregnancies.?She reports waking frequently to urinate at night at least twice per? night, even with trying to limit her liquid intake at night. She denies issues? falling asleep. She denies changes in her sleep pattern after having children.? She thinks that she is getting adequate sleep. She used to exercise before the? COVID-19 pandemic. Reports difficulty losing weight since her delivery. She? denies abdominal pain, diarrhea, nausea, Hx of asthma, SOB, and palpitations.? She defecates about once every 1-2 days. She took an SSRI for 3 months after her? last delivery in 2018, but stopped due to multiple side effects including? diarrhea. 1. Celiac disease - K90.0 (Primary)2. Osteopenia determined by x-ray -? M85.80Celiac panel was unremarkable in 2016. In 11/01/2019, hemoglobin was 13.2,? hematocrit was 33.2, and the rest of CBC was normal. Glucose and renal function? were normal, AST 33, ALT 64, bilirubin 0.4, and albumin 4.0.Patient seems? to have an appropriate diagnosis of celiac disorder. Within the last 5 years she? has had 2 completed pregnancies and 1 miscarriage. She did short term, up to 9? months, with the 2 children. She has not consistently taken her? supplementations, She also reports fatigue, which with no clear etiology, no Hx? of sleep apnea, BMI has been in the range of 30-32, I believe some of her? problems may be metabolic. She seems to follow a gluten free diet. Biopsies in? 2015 showed normal villi structure, which usually translates to normal? absorption depending on dietary intake. Small bowel biopsies were done at the? time of her EGD, in 2013. [facility]. We will regroup in 6 - 8 weeks [facility] Medical History (Updated 08/04/25 @ 15:57 by Sharon Feliz MD) Anxiety and depression Tonsillith Annual physical exam Bladder prolapse, female, acquired Celiac disease Osteopenia Eczema Psoriasis Surgical History Hx of vaginal surgery H/O colonoscopy History of esophagogastroduodenoscopy (EGD) Family History Father Family history of prostate problems HTN (hypertension) Mother HTN (hypertension) Maternal Grandmother Parkinsons CVD (cardiovascular disease) Maternal Uncle Colon cancer Other Mental health disorder Substance use disorder Social History Household Members: Spouse and Children 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, 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 Alcohol intake: current Alcohol intake frequency: holidays/special occasions only Patient Tobacco Use Status: Never used Tobacco e-Cigarette/Vaping Use: Never Used Second Hand Smoke Exposure: No service: No Current occupational status: employed 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 Cognitive needs: No Hearing needs: No Vision needs: Yes Review of Systems Const All systems reviewed & are unremarkable except as noted in HPI and below ENT Reports Normal hearing present Neuro Reports Normal hearing present and Denies Abnormal speech present Physical Exam Vital Signs: BMI result Body Mass Index 29.3 Const General: healthy appearing and no acute distress Nutritional Appearance: overweight Orientation/consciousness: patient oriented x3 Limitations: no limitations HEENT Head: Yes normal to inspection Ears: hearing grossly normal bilaterally Mouth: Normal oral and palatal mucosa present Eyes Sclerae: sclerae normal Pupils: Equal, round and reactive pupils present Neck Neck: Yes normal visual inspection Chest Chest palpation & inspection: normal inspection of the chest Resp Effort & Inspection: normal respiratory effort Auscultation: clear to auscultation bilaterally Cardio Palpation: normal PMI Rate: regular rate Rhythm: regular rhythm Heart sounds: S1 normal heart sound present, S2 normal heart sound present and no murmurs GI Palpation (GI): Soft to palpation, nontender and No hepatosplenomegaly present Auscultation: normal bowel sounds Rectal Exam - Female: deferred Skin General skin exam: no rashes or lesions noted Neuro General: patient oriented x3, gait normal and moves all extremities Cranial nerves: Yes Equal, round and reactive pupils present and Yes Normal hearing present Speech: No Abnormal speech present Psych Appearance: grossly normal Mental Status: mental status grossly normal Assessment & Plan Assessment & Plan (1) GERD (gastroesophageal reflux disease): Code(s): K21.9 - Gastro-esophageal reflux disease without esophagitis Category: Medical (2) Celiac disease: Comment: In remission on gluten free diet, negative EGD and colonoscopy 04/2022, follows up with GI annually Code(s): K90.0 - Celiac disease Category: Medical (3) Family history of colonic polyps: Comment: Dad in his 40's Code(s): Z83.71 - Family history of colonic polyps Category: Medical Plan 45 YF with psoriasis diagnosed with Celiac Disease in 2009 and following a strict gluten free diet. She notes symptoms on accidental exposure to minimal amounts of gluten. She takes multiple supplements - calcium, vitamin-D, vitamin B12. Labs showed normal celiac serologies, LFTs, vitamin D and vitamin B12 levels. Patient's dad was detected to have colon polyps in his 40s.? Per patient EGD and colonoscopy in 2011 were negative. 04/2022 EGD and colonoscopy were performed and findings as noted above.? Pt was advised repeat Colon in 5 yrs due to positive FH (Due 04/2027) 09/19/24 Taking Omeprazole 20 mg daily and Mylanta prn for heartburn. Noted an episode of severe upper abd pain (without radiation) after drinking [place] water Schedule abd US to rule out cholelithiasis. 01/09/25 US results reviewed. Of note pt had normal bone density on Dexa scan in Oct, 202105/2025 Pt had pneumococcal vaccination 09/11/25 On a gluten free diet. Occasional GERD symptoms related to diet - advised to continue omeprazole in the a.m. and famotidine at bedtime FU in 6 months MANAGEMENT OF CELIAC DISEASE (FROM UPTODATE): Repletion of nutritional deficiencies???Patients should be tested for deficiency of vitamins (A, D, E, B12), copper, zinc, carotene,?folic acid, ferritin, iron, and prothrombin time (PT) measured for potential vitamin K deficiency. Deficiency in thiamine, vitamin B6, magnesium, and?selenium may also occur depending on the disease severity and dietary intake and should be tested for in the presence of clinical signs or symptoms of a deficiency. A gluten-free diet may induce troublesome constipation since it is low in roughage. This usually responds to fiber supplementation with?psyllium?seed husks. Medication absorption???There may be incomplete absorption of medication in untreated, partially treated, or refractory celiac disease. This is important for females of childbearing age who take oral contraceptive pills, where there may be incomplete absorption of the medication such that they should be advised to use alternative contraception. Prevention of bone loss???Bone loss is common in celiac disease, and can occur in patients without gastrointestinal symptoms Much of the bone loss is related to secondary hyperparathyroidism which is probably due to vitamin D deficiency. Patients with advanced disease may have bone pain, pseudofractures, or deformity, but the majority of patients are asymptomatic or have only raised serum levels of alkaline phosphatase or hypocalcemia. It can only be partially reversed with a gluten-free diet; loss of bone density in the peripheral skeleton may persist despite apparent normalization at axial skeletal sites Patients diagnosed with celiac disease should be evaluated for bone loss using a DXA (dual energy x-ray absorptiometry) scan. Monitoring by repeat DXA scan after one year is useful in patients with osteopenia since it permits estimation of the rate of change of bone mineral density Pneumococcal vaccination???Celiac disease is associated with hyposplenism. Therefore, prophylactic administration of pneumococcal vaccine is recommend Orders: Orders Immunoglobulin A Today K90.0 - Celiac disease Transglutaminase IgA Today K90.0 - Celiac disease Coding Level of Care Code Est Pt Level 3 (72277) Diagnoses GERD (gastroesophageal reflux disease) K21.9 Celiac disease K90.0 Family history of colonic polyps Z83.71 Time Spent (min) 18
[2025-09-11 07:34] VITALS: BP 126/81; PULSE 87; BMI 29.3
--- OUTSIDE RECORDS SUMMARY | 2025-09-11 07:35 | XMS_ITS | Clinical Summary ---
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
== END 2025-09-11 07:58 | disposition home or self-care (01) ==
LOC: HO.HGI 07:29
PROVIDERS: PCP Internal Medicine; Visit Provider Internal Medicine Gastroenterology
DX: K21.9 Gastro-esophageal reflux disease without esophagitis (principal); K90.0 Celiac disease; Z83.719 Family history of colon polyps, unspecified
CPT/HCPCS: 99213

== ENCOUNTER 2025-09-15 09:23 | Outpatient (REF) | payer BC, SELFPAY ==
--- NOTE | ~2025-09-15 | MM_ITS ---
EXAMINATION: MM SCREENING DIGITAL BREAST TOMOSYNTHESIS, BILATERAL CLINICAL INFORMATION: Screening. Asymptomatic. COMPARISON: Mammography: Comparison is made with available priors TECHNIQUE: Digital breast mammography with tomosynthesis is performed in both the craniocaudal and mediolateral oblique views along with computer-aided detection (CAD). FINDINGS: There are scattered areas of fibroglandular density. There are no significant masses, abnormal calcifications, or other abnormalities. MM/MM tomosynthesis screening BI IMPRESSION: No mammographic evidence of malignancy. ASSESSMENT: BI-RADS Category 1: Negative RECOMMENDATION: Routine annual mammography screening. 1 year F/U This examination should not preclude the clinical evaluation of a suspicious palpable abnormality. This patient's information was entered into a reminder system with a target due date for their next mammogram. Electronically signed by: Rosemary Patten DO 09/17/2025 02:30 PM JORGE
== END 2025-09-15 09:24 | disposition home or self-care (01) ==
LOC: HO.MAMMO 09:23
PROVIDERS: PCP Internal Medicine; Visit Provider Internal Medicine
DX: Z12.31 Encounter for screening mammogram for malignant neoplasm of breast (principal)
CPT/HCPCS: 77063; 77067

== ENCOUNTER → 2025-09-15 09:30 | Outpatient (BNV) | payer BC, SELFPAY | PROVIDERS: PCP Internal Medicine; Visit Provider Internal Medicine | DX: Z12.31 Encounter for screening mammogram for malignant neoplasm of breast (principal) | CPT/HCPCS: 77063; 77067 ==